=== PATIENT | male | born 1930 | race Caucasian/White ===

== ENCOUNTER 2017-01-05 15:23 | Inpatient (IN) | payer MEDICARE, OTHER ==
[~2017-01-05] VITALS: Ht 182.9 cm; Wt 96.3 kg
[2017-01-05] MEDS ORDERED: LOSA100T36 PO (16:48)
[2017-01-05] MEDS ORDERED: GLIP10TA6 PO (16:48)
[2017-01-05] MEDS ORDERED: AMLO5TAB2 PO (16:48)
[2017-01-05] MEDS ORDERED: JANU100T PO (16:48)
[2017-01-05] MEDS ORDERED: NEXI40CA PO (16:48)
[2017-01-05] MEDS ORDERED: SITA50TAB (16:48)
[2017-01-05] MEDS ORDERED: FURO40TA2 PO (16:48)
[2017-01-05] MEDS ORDERED: SPIR12.9 (16:48)
[2017-01-05] MEDS ORDERED: PRAV20TA2 PO (16:48)
[2017-01-05 18:43] LABS: BASO % 0.2 % (0.0-1.0); EOS # 0.1 K/mm3 (0.0-0.50); EOS % 0.5 % (0.0-3.0); LARGE UNSTAINED CELL % 0.2 % (0.0-4.0); LYMPH # 0.3 K/mm3 (1.5-4.5); LYMPH % 2.1 % (24.0-44.0); MEAN CORPUSCULAR HEMOGLOBIN 29.1 pg (27.0-33.0); MEAN CORPUSCULAR HGB CONC 33.9 g/dl (32.0-36.5); MEAN CORPUSCULAR VOLUME 85.6 fl (80.0-96.0); MONO # 0.5 K/mm3 (0.0-0.8); MONO % 3.6 % (0.0-5.0); NEUTROPHILS # 13.5 K/mm3 (1.8-7.7); NEUTROPHILS % 93.4 % (36.0-66.0); PLATELET COUNT, AUTOMATED 219 k/mm3 (150-450); WHITE BLOOD COUNT 14.5 K/mm3 (4.0-10.0)
[2017-01-05 18:48] LABS: ALBUMIN 3.8 GM/DL (3.2-5.2); ALBUMIN/GLOBULIN RATIO 1.23 (1.00-1.93); BILIRUBIN,DIRECT 0.1 MG/DL (0.0-0.2); BILIRUBIN,TOTAL 0.6 MG/DL (0.2-1.0); CALCIUM LEVEL 8.2 MG/DL (8.8-10.2); CREATININE FOR GFR 2.2 MG/DL (0.70-1.30); FREE T4 1.02 NG/DL (0.76-1.46); GLOMERULAR FILTRATION RATE 30.4 (>35); POTASSIUM SERUM 3.7 MEQ/L (3.5-5.1); TOTAL PROTEIN 6.9 GM/DL (6.4-8.2)
--- NOTE | 2017-01-05 19:30 | REPUSA ---
CLINICAL HISTORY: AMS. TECHNIQUE: Multiple axial CT images were obtained through the brain without IV contrast material. COMMENTS: There is normal configuration of sella turcica. There are no intra or extra-axial collections. There is no mass effect or midline shift. There is no evidence of hematoma formation. No hydrocephalus is p resent. The ventricles are symmetrical. No abnormal calcifications are present. There is diffuse age-appropriate cerebellar and cerebral atrophy with proportionally dilated ventricl es and cortical sulci. There are bilateral periventricular and subcortical white matter hypolucencies compatible with mild c hronic microvascular disease. Otherwise, no significant focal abnormalities are seen either in the posterior fossa or supratentoria l compartment. IMPRESSION: 1. Age-appropriate cerebellar and cerebral atrophy. 2. Mild chronic microvascular disease. 3. No evidence of acute intracranial pathology. Thank you for your kind referral of this patient.
--- NOTE | 2017-01-05 19:39 | REP ---
CHEST PA AND LATERAL 01/05/2017. Comparison: 07/25/2013, 02/01/2015. Clinical history: Altered mental status. Lungs adequately inflated. 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 Pulmonary arteries are mildly prominent. There is respiratory motion blur on the lateral view. Peribronchial thickening noted suggesting bronchitis or reactive airway disease. No dense consolidation evident. I see no lateral pleural thickening, effusion, apical scar or pneumothorax. Calcified tortuous aorta at the arch without aneurysm. Airway midline. Bony thorax without compression deformity. Impression: 1. Hyperinflation and pulmonary artery hypertension with COPD and some peribronchial thickening suggesting bronchitis or reactive airway disease. No dense consolidation. No mass. 2. No gross cardiomegaly, pulmonary edema or pleural effusion. 3. Calcified aortic arch with some tortuosity but no aneurysm. Stable. Signed by Joe Kruger MD 01/05/2017 07:54 P
[2017-01-05 20:51] LABS: MAGNESIUM LEVEL 1.6 MG/DL (1.8-2.4)
[2017-01-05] MEDS: HumaLOG INSULIN (NovoLOG) PER UNIT SC SCH (21:00)
[2017-01-05] MEDS ORDERED: LevoFLOXacin IV 500 MG in APPROPRIATE DILUENT 1 EA IV SCH (21:00)
[2017-01-05] MEDS ORDERED: ASPI81TAEC PO (21:02)
[2017-01-05] MEDS ORDERED: ALBU17IN INH (21:02)
[2017-01-05] MEDS ORDERED: ALEV220T26 PO (21:02)
[2017-01-05] MEDS ORDERED: VITA100066 PO (21:02)
[2017-01-05] MEDS ORDERED: VITMTA PO (21:02)
[2017-01-05] MEDS ORDERED: TIOT18INH INH (21:02)
[2017-01-05] MEDS ORDERED: GLUCAGON FOR INJ 1 MG VIAL (J1610) SC PRN (21:30)
[2017-01-05] MEDS ORDERED: BISACODYL 5 MG TAB PO PRN (21:30)
[2017-01-05] MEDS ORDERED: ONDANSETRON 4MG/2ML VIAL (J2405) IV PRN (21:30)
[2017-01-05] MEDS ORDERED: ALBUTEROL 90 MCG/ACT 8GM HFA INHALER INH PRN (21:30)
[2017-01-05] MEDS ORDERED: ACETAMINOPHEN TAB 650MG DOSE (2X325MG) PO PRN (21:30)
[2017-01-05] MEDS ORDERED: POTASSIUM CHLORIDE 10 MEQ SR TABLET PO ONE (21:30)
[2017-01-05] MEDS ORDERED: GLUCOSE 4 GM CHEW TABLET PO PRN (21:30)
[2017-01-05] MEDS ORDERED: DEXTROSE 50% 50 ML SYRINGE IV PRN (21:30)
--- NOTE | 2017-01-05 22:50 | HPE ---
DATE OF ADMISSION: 01/05/2017 CHIEF COMPLAINT: Rigors. HISTORY OF THE PRESENT ILLNESS: The patient is an 86-year-old man who was in his usual state of health, who at 10:30 this morning began having shivers and feeling cold. He reports having some mild shortness of breath associated with it. He is unsure if he has had a cough. He denies sick contacts. He tells me that the he thought that maybe his blood sugar was low. He checked a fingerstick; it was 85. He did have some juice and it came up to 150, but his rigors continued. He presented to urgent care where they referred him to the emergency room. At the present time, the patient tells me that after having had some Tylenol at urgent care, his rigors have stopped. At this time, he feels like he is almost back to normal. He denies chest pain, shortness of breath, fevers, chills, nausea, vomiting or diarrhea. Please note that the patient tells me that he has had increased frequency, says that he is going to the bathroom approximately every hour. He has been struggling with this for many weeks but has not seen anybody about it. He also tells me that he does wake up often at night to make urine as well, but he denies any dysuria. PAST MEDICAL HISTORY: Type 2 diabetes. Vitamin B12 deficiency. Hypertension. Chronic obstructive pulmonary disease (COPD), not on any home oxygen (O2) or steroid dependent. Gastroesophageal reflux disease. Dyslipidemia. Peripheral vascular disease. Obstructive sleep apnea. PAST SURGICAL HISTORY: Open reduction internal fixation of the right ankle. Prostatectomy. Lung nodule. Discectomy. SOCIAL HISTORY: The patient lives with his . He is a former smoker. He has three alcoholic drinks a day. FAMILY HISTORY: Noncontributory. REVIEW OF SYSTEMS: Negative other than in the history of the present illness. ALLERGIES: No known drug allergies. HOME MEDICATIONS: - Lasix 40 mg daily - glipizide 10 mg daily - losartan 100 mg daily - Januvia 100 mg daily - naproxen 220 mg twice a day as needed for pain - Ventolin HFA inhaled one puff every 4 hours as needed for shortness of breath - amlodipine 5 mg daily - aspirin 81 mg daily - vitamin D 1000 units daily - Nexium 40 mg daily - multivitamin one tablet daily - pravastatin 20 mg daily - Spiriva inhaled daily PHYSICAL EXAMINATION: Maximum temperature (T max) 102.2 on arrival, pulse 98, respiratory rate 20, blood pressure 122/61, oxygen saturation 96% on room air. GENERAL: He is a pleasant man, appears younger than his stated age. He is laying flat on the stretcher. He does not appear to be in any acute distress. HEENT: Cranial nerves II-XII are grossly intact. He has mild elevation of central venous pressure. CARDIOVASCULAR EXAM: S1, S2. He is not tachycardic on my exam. RESPIRATORY EXAM: Actually quite clear. ABDOMINAL EXAM: Obese. EXTREMITIES: He has 2+ edema bilaterally. LABORATORY STUDIES: WBC 14.5, hemoglobin 11.7, hematocrit 34.4, platelet count 219. Chemistry panel: Sodium 138, potassium 3.7, chloride 102, bicarbonate 24, BUN 33, creatinine 2.2 up from baseline of approximately 1.7. TSH within normal limits. UA is unremarkable. Microbiology: Urine culture is pending. IMAGING: The patient did have a CT scan of his head, which reveals age-appropriate cerebellar and cerebral atrophy. Mild chronic microvascular disease. No evidence of acute intracranial pathology. The patient also had a chest x-ray that reveals hyperinflation and pulmonary artery hypertension with COPD. Some peribronchial thickening suggestive of bronchitis or reactive airway disease. No dense consolidation. ASSESSMENT AND PLAN: This is an 86-year-old man presenting with fever, leukocytosis and fluid overload with acute kidney injury. Problems: 1. Fever and leukocytosis. Given the abrupt onset of his symptoms, I am suspicious for a viral infection. Will check a respiratory PCR panel. However, given that he does have bronchitis, I will start him on levofloxacin as well. Will also check blood cultures. He is currently not requiring any oxygen. Appears to be feeling much improved. Would also provide him with Tylenol. 2. Fluid overload and acute kidney injury. Given his increased frequency and urgency, I am concerned for urinary retention. Will check a renal ultrasound, also place a Andersen catheter. I will also adjust his home Lasix. He normally takes 40 mg daily; I will put him on 40 mg IV every 8 hours. Monitor his intake, output and daily weight to see if diuresis improves his renal function. Levofloxacin will be dose adjusted for renal dysfunction. We will check a BNP, check magnesium and replete potassium and magnesium as necessary. Will check an echocardiogram, although it appears as though his fluid retention is more related to renal disease than cardiac disease. 3. Chronic obstructive pulmonary disease (COPD). Continue with his home inhalers. He is at his baseline respiratory status. 4. Gastroesophageal reflux disease. The patient is on Protonix. 5. Type 2 diabetes. The patient will be sliding scale insulin and hypoglycemic protocol. 6. Hypertension. We will continue with his home Norvasc with holding parameters. 7. Dyslipidemia. Will continue with pravastatin. 8. Vitamin D deficiency and B12 deficiency. He is on supplementation. 9. Obstructive sleep apnea. The patient does not use continuous positive airway pressure (CPAP), although has been recommended to previously on an older sleep study by Dr. Wright. DISPOSITION: The patient will be admitted to the medical-surgical floor to the care of Dr. Ruby who will continue following the patient at 7:00 a.m. [facility]
--- NOTE | 2017-01-05 23:50 | REPUSA ---
CLINICAL HISTORY: LUISITO. TECHNIQUE: Realtime sonographic images were obtained in multiple projections. COMMENTS: The right kidney measures 11.8 cm in length, 8.2 cm in width x 5.9 cm in height and the left kidney m easures 12.8 cm in length x 6.1 cm in width x 7.0 cm in height. Both kidneys are free of hydronephro sis. There is no perinephric fluid. There is no renal calculus. Multicystic right kidney, the largest measuring in the upper pole is 3.4 x 2.5 x 3.3 cm. Multicystic left kidney, the largest measuring in the lower pole is 6.4 x 5.8 x 5.0 cm. Cortical thi ckening noted. IMPRESSION: 1. Multicystic right kidney, the largest cyst in the upper pole is 3.4 x 2.5 x 3.3 cm. 2. Multicystic left kidney, the largest in the lower pole is 6.4 x 5.8 x 5.0 cm. Cortical thickenin g noted. Thank you for your kind referral of this patient. We appreciate the opportunity to participate in thi s patient's care.
[2017-01-06] VITALS: BP 131/60
[2017-01-06] MEDS: MAG SULF 1GM/100ML (MAG RUN) 1 GM in APPROPRIATE DILUENT 1 EA IV SCH ×2 (00:19→01:30)
[2017-01-06] MEDS: FUROSEMIDE 40 MG/4 ML VIAL (J1940) IV SCH ×2 (00:19→08:10)
[2017-01-06 06:00] VITALS: BP 110/55
[2017-01-06] MEDS: TIOTROPIUM INHALER/CAPSULE (SPIRIVA) INH SCH (06:26)
[2017-01-06 06:58] LABS: MEAN CORPUSCULAR HEMOGLOBIN 29.1 pg (27.0-33.0); MEAN CORPUSCULAR HGB CONC 33.9 g/dl (32.0-36.5); RED CELL DISTRIBUTION WIDTH 13.3 % (11.5-14.5); WHITE BLOOD COUNT 15.8 K/mm3 (4.0-10.0)
[2017-01-06 07:16] LABS: CALCIUM LEVEL 7.9 MG/DL (8.8-10.2); CREATININE FOR GFR 2.76 MG/DL (0.70-1.30); GLOMERULAR FILTRATION RATE 23.4 (>35); POTASSIUM SERUM 4.4 MEQ/L (3.5-5.1)
[2017-01-06] MEDS: PRAVASTATIN 20 MG TAB PO SCH (08:10)
[2017-01-06] MEDS: HEPARIN SOD (PORCINE) 5000 UNITS/ML VIAL SC SCH ×2 (08:10→20:52)
[2017-01-06] MEDS: HumaLOG INSULIN (NovoLOG) PER UNIT SC SCH ×4 (08:10→20:48)
[2017-01-06] MEDS: ASPIRIN 81 MG ENTERIC TAB PO SCH (08:11)
[2017-01-06] MEDS: MULTIVITAMINS/MINERALS THERAP 1 TAB PO SCH (08:11)
[2017-01-06] MEDS: PANTOPRAZOLE 40MG TAB (PROTONIX) PO SCH (08:11)
[2017-01-06] MEDS: THIAMINE 100 MG TAB PO SCH (08:11)
[2017-01-06] MEDS: FOLIC ACID 1 MG TAB PO SCH (08:11)
[2017-01-06] MEDS: amLODIPine 5 MG TAB PO SCH (08:11)
[2017-01-06] MEDS: VITAMIN D 1,000 INTERNATIONAL UNITS TABLET PO SCH (08:11)
[2017-01-06] MEDS: PERCOCET 5MG/325MG TAB PO PRN (08:17)
--- NOTE | 2017-01-06 09:06 | IPNPDOC ---
Subjective Date Seen The patient was seen on 01/06/17. Subjective Chief Complaint/HPI He wants to eat. He is eager to go home. He doesn't really c/o much this morning. General: Denies: Fatigue Constitutional: Reports: Fever, Denies: Chills ENT: Denies: Head Aches Pulmonary: Denies: Cough, Dyspnea Cardiovascular: Denies: Chest Pain, Palpitations Gastrointestinal: Denies: Diarrhea, Nausea, Vomiting Psych: Reports: Mood Normal Objective Physical Examination General Exam: Positive: Alert, Cooperative, No Acute Distress ENT Exam: Positive: Mucous membr. moist/pink Chest Exam: Positive: Clear to auscultation, Normal air movement Heart Exam: Positive: Normal S1, Normal S2, Rate Normal Abdomen Exam: Positive: Normal bowel sounds, Soft, Negative: Tenderness Extremity Exam: Positive: Edema (2 mm pedal edema) Neuro Exam: Positive: Normal Speech Psych Exam: Positive: Mood NL Assessment /Plan Problems (1) Febrile illness, acute Status: Acute Response to Treatment: Stable Problem Specific Plan: Monitor Clinically, Repeat Labs Problem Text: WBC elevated 14.5 yesterday, 15.8 today, Temp controlled with Tyl. Check influenza, Resp viral screen ordered, results pending, CXR without acute disease. Cont with Levaquin D2, renally dosed. (2) LUISITO (acute kidney injury) Status: Acute Problem Specific Plan: Monitor Clinically, Repeat Labs Problem Text: Scr 2.2 on admission, 2.76 this morning, received IV Lasix overnight, will DC and monitor. Hold off on IVF for now. 08/14 Scr was 1.78 (3) Polycystic kidney Status: Chronic Problem Specific Plan: Monitor Clinically Problem Text: otherwise nl renal US. (4) COPD (chronic obstructive pulmonary disease) Status: Acute (5) DM2 (diabetes mellitus, type 2) Status: Chronic Response to Treatment: Stable Problem Specific Plan: Monitor Clinically Problem Text: FSBS with SSI ordered. (6) HTN (hypertension) Status: Chronic Response to Treatment: Stable Problem Specific Plan: Monitor Clinically (7) Edema Status: Chronic Response to Treatment: Stable, Improving Problem Specific Plan: Monitor Clinically Problem Text: Received IV Lasix overnight, will d/c today, does have chronic baseline edema, secondary to venous insuff. ECHO pending. Plan/VTE VTE Prophylaxis Ordered?: Yes Plan/Urinary Catheter Reason for insertion/continuin: Other-document below Plan Family Medicine Attending Note: I saw and examined Mr. Diana this afternoon; I d/w TAPAN Anderson and I agree with her note. Lasjim d/c'ed today due to elevated Cr; patient does not appear volume overloaded on my exam today. Temp up to 100.2 upon last check - source is unknown. Skin exam today revealed no sign of infection, CXR negative for infiltrate and patient has no respiratory symptoms, and urine culture was negative. Resp panel and Influenza pending. Continue empiric levaquin for now. Nathaly d/c'ed today. (KES) VS, I&O, 24H, Fishbone Vital Signs/I&O Vital Signs Date Time Temp Pulse Resp B/P Pulse Ox O2 Delivery O2 Flow Rate FiO2 01/06/17 08:47 16 01/06/17 06:00 100.2 89 110/55 97 Room Air I&O- Last 24 Hours up to 6 AM 01/06/17 06:00 Intake Total 440 ml Output Total 400 ml Balance 40 ml Laboratory Data 24H LABS Laboratory Tests 2 01/05/17 15:57: Aspartate Amino Transf (AST/SGOT) 13L, Alanine Aminotransferase (ALT/SGPT) 14, Alkaline Phosphatase 79, Total Bilirubin 0.6, Direct Bilirubin 0.1, Albumin 3.8 , Albumin/Globulin Ratio 1.23, Anion Gap 12, B-Type Natriuretic Peptide 197H, White Blood Count 14.5H, Red Blood Count 4.02L, Hemoglobin 11.7L, Hematocrit 34.4L, Mean Corpuscular Volume 85.6, Mean Corpuscular Hemoglobin 29.1, Mean Corpuscular Hemoglobin Concent 33.9, Red Cell Distribution Width 13.0, Platelet Count 219, Neutrophils (%) (Auto) 93.4H, Lymphocytes (%) (Auto) 2.1L, Monocytes (%) (Auto) 3.6, Eosinophils (%) (Auto) 0.5, Basophils (%) (Auto) 0.2, Neutrophils # (Auto) 13.5H, Lymphocytes # (Auto) 0.3L, Monocytes # (Auto) 0.5, Eosinophils # (Auto) 0.1, Basophils # (Auto) 0.0, Calcium Level 8.2L, Creatine Kinase MB 1.0, Creatine Kinase MB Relative Index 1.44, Free Thyroxine 1.02, Glomerular Filtration Rate 30.4L, Large Unclassified Cells # 0.0, Large Unclassified Cells % 0.2, Magnesium Level 1.6L, Thyroid Stimulating Hormone (TSH ) 1.450, Total Creatine Kinase 69, Total Protein 6.9, Troponin I 0.02 01/05/17 18:55: Urine Amorphous Sediment , Urine Appearance CLEAR, Urine Color YELLOW, Urine pH 5.0, Urine Specific [place] 1.011, Urine Protein NEGATIVE, Urine Glucose (UA) NEGATIVE, Urine Ketones NEGATIVE, Urine Urobilinogen 0.2, Urine Bilirubin NEGATIVE, Urine Leukocyte Esterase NEGATIVE, Urine Bacteria (Auto) NEGATIVE, Urine Blood NEGATIVE, Urine Calcium Carbonate Cryst(Auto) , Urine Calcium Oxalate Cryst (Auto) , Urine Calcium Phosphate Shara (Auto) , Urine Cellular Casts , Urine Cystine Crystals , Urine Granular Casts (Auto) , Urine Hyaline Casts (Auto) 2, Urine Leucine Crystals , Urine Mucus (Auto) SMALL, Urine Nitrite NEGATIVE, Urine Oval Fat Bodies (Auto) , Urine RBC (Auto) 1, Urine Renal Epithelial Cells , Urine Sperm (Auto) , Urine Squamous Epithelial Cells 1 , Urine Transitional Epithelial Cells , Urine Trichomonas (Auto) , Urine Triple Phosphate Cryst (Auto) , Urine Tyrosine Crystals , Urine Uric Acid Crystals ( Auto) , Urine WBC (Auto) 0, Urine Waxy Casts (Auto) , Urine Yeast-Like Cells ( Auto) 01/05/17 20:28: Bedside Glucose (Misc Panel) 157H 01/06/17 06:40: Anion Gap 10, B-Type Natriuretic Peptide 315H, Calcium Level 7.9L, Glomerular Filtration Rate 23.4L, Blood Urea Nitrogen 44H, Creatinine 2.76H, Sodium Level 136, Potassium Level 4.4, Chloride Level 102, Carbon Dioxide Level 24 CBC/BMP Laboratory Tests 01/05/17 15:57 Red Blood Count 4.02 L, Mean Corpuscular Volume 85.6, Mean Corpuscular Hemoglobin 29.1, Mean Corpuscular Hemoglobin Concent 33.9, Red Cell Distribution Width 13.0, Neutrophils (%) (Auto) 93.4 H, Lymphocytes (%) (Auto) 2.1 L, Monocytes (%) (Auto) 3.6, Eosinophils (%) (Auto) 0.5, Basophils (%) (Auto ) 0.2, Neutrophils # (Auto) 13.5 H, Lymphocytes # (Auto) 0.3 L, Monocytes # ( Auto) 0.5, Eosinophils # (Auto) 0.1, Basophils # (Auto) 0.0 01/06/17 06:40 Red Blood Count 3.62 L, Mean Corpuscular Volume 86.0, Mean Corpuscular Hemoglobin 29.1, Mean Corpuscular Hemoglobin Concent 33.9, Red Cell Distribution Width 13.3, Calcium Level 7.9 L Microbiology Microbiology 01/06/17 Blood Culture, Received Pending 01/06/17 Blood Culture, Received Pending 01/05/17 Urine Culture, Received Pending HONORIO TARIQ PA-C Jan 06, 2017 09:06 BETTE JOSÉ MD Jan 06, 2017 15:15
[2017-01-06 14:00] VITALS: BP 114/58
[2017-01-06 22:00] VITALS: BP 123/57
[2017-01-07 06:00] VITALS: BP 130/61
[2017-01-07 06:10] LABS: MEAN CORPUSCULAR HEMOGLOBIN 29.5 pg (27.0-33.0); MEAN CORPUSCULAR HGB CONC 34.4 g/dl (32.0-36.5); MEAN CORPUSCULAR VOLUME 85.8 fl (80.0-96.0); RED CELL DISTRIBUTION WIDTH 13.2 % (11.5-14.5); WHITE BLOOD COUNT 10.8 K/mm3 (4.0-10.0)
[2017-01-07 06:25] LABS: CREATININE FOR GFR 2.61 MG/DL (0.70-1.30); POTASSIUM SERUM 3.9 MEQ/L (3.5-5.1)
[2017-01-07] MEDS: TIOTROPIUM INHALER/CAPSULE (SPIRIVA) INH SCH (07:20)
--- NOTE | 2017-01-07 08:46 | ECGEPIP ---
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
[2017-01-07] MEDS: HEPARIN SOD (PORCINE) 5000 UNITS/ML VIAL SC SCH (08:59)
[2017-01-07 09:00] VITALS: BP 130/61
[2017-01-07] MEDS: ASPIRIN 81 MG ENTERIC TAB PO SCH (09:00)
[2017-01-07] MEDS: THIAMINE 100 MG TAB PO SCH (09:00)
[2017-01-07] MEDS: PRAVASTATIN 20 MG TAB PO SCH (09:00)
[2017-01-07] MEDS: VITAMIN D 1,000 INTERNATIONAL UNITS TABLET PO SCH (09:00)
[2017-01-07] MEDS: HumaLOG INSULIN (NovoLOG) PER UNIT SC SCH (09:00)
[2017-01-07] MEDS: amLODIPine 5 MG TAB PO SCH (09:00)
[2017-01-07] MEDS: PANTOPRAZOLE 40MG TAB (PROTONIX) PO SCH (09:00)
[2017-01-07] MEDS: PERCOCET 5MG/325MG TAB PO PRN (09:00)
[2017-01-07] MEDS: FOLIC ACID 1 MG TAB PO SCH (09:00)
[2017-01-07] MEDS: MULTIVITAMINS/MINERALS THERAP 1 TAB PO SCH (09:01)
[2017-01-07] MEDS ORDERED: SITA50TAB PO (12:21)
[2017-01-07] MEDS ORDERED: LEVO500T32 PO (12:21)
--- NOTE | 2017-01-08 07:56 | ECHO ---
DATE OF PROCEDURE: 01/06/2017 REFERRING PHYSICIAN: Dr. Leah Yost INDICATION: Heart failure, unspecified. HEIGHT: 183 cm. WEIGHT: 93 kg. MEASUREMENTS: Ventricular septum - 1.22 cm. Posterior wall - 1.17 cm Left ventricle diastole - 4.3 cm Left atrium 4.2 cm LVOT - 2.0 cm Aortic root - 3.2 cm Inferior vena cava - 1.9 cm DOPPLER MEASUREMENTS: Very mild aortic regurgitation. Aortic valve velocity - 164 cm/s LVOT velocity - 157 cm/s LVOT VTI - 29.5 cm Mitral E velocity 89.8 cm/s Mitral A velocity - 74.0 cm/s Mitral deceleration time 204 ms. Very mild tricuspid regurgitation. Pulmonary artery systolic pressure 27 mmHg by pulmonary acceleration time method. MITRAL ANNULAR TISSUE DOPPLER: E prime septal - 5.7 cm/s E prime lateral - 6.3 cm/s DESCRIPTION: The rhythm was sinus. Image quality was fair. This is a 2D, M-mode, color flow Doppler and pulsed wave Doppler examination including mitral annular tissue Doppler. CONCLUSIONS: 1. Borderline concentric left ventricle hypertrophy. No regional wall motion abnormalities. Hyperdynamic left ventricle systolic function. LVEF to 80% by visual estimate. Probable pseudonormal LV diastolic filling pattern (grade 2 diastolic dysfunction). 2. Mild left atrial dilatation. 3. Mild aortic valve sclerosis. Very mild aortic regurgitation. 4. Otherwise normal echocardiogram Doppler findings. cc: MD Shanta Norton MD
--- NOTE | 2017-01-09 10:04 | DSES ---
DATE OF ADMISSION: 01/05/2017 DATE OF DISCHARGE: 01/07/2017 REASON FOR ADMISSION: The patient was admitted on 01/05/2017, with chills, felt somewhat short of breath accompanying the chills. He does have a history of COPD and uses Spiriva but he denies any significant change in cough or dyspnea related exertion except noted the respiratory symptoms that occurred with the fever. He did not have a productive cough. He did have a temperature on admission of 102.2, appropriate source search was engaged to try to identify the source of this fever, including blood cultures, respiratory viral studies and these were all entirely negative. Blood cultures were negative times two. Urine culture was negative. He defervesced promptly after being placed on levofloxacin 500 mg every 48 hours. Previous to admission pain he had informed the admitting physician that he had been experiencing urinary frequency for several weeks before admission. At this point, however the patient denies this history, not clear whether this is a memory lapse or overt denial. At this time he is voiding without difficulty by his history. He is status post prostatectomy for prostate cancer and at this time he was up urinating to the bathroom without difficulty and walking without any difficulties. Current condition is satisfactory for discharge with vital signs that appear to be stable with blood pressure 130/61, temperature of 97.4, pulse 80, respiratory rate 18, oxygen saturation 96% on room air. Ultrasound of his kidneys was done because of appropriate concern regarding possible obstructive uropathy and he did not have evidence of hydroureter or hydronephrosis. He did have evidence however of bilateral polycystic kidney disease. His creatinine had been approximately 1.7 when checked in May and on admission his creatinine was 2.20. After initiation of moderately intense diuresis with IV Lasix every 8 hours because of cardiomegaly and sense of dyspnea and slightly elevated BNP, his creatinine chadwick to 2.76. The following day, the day of discharge, he is back down to 2.61 and his BNP is now back almost to normal at 135, peak BNP was 315 recorded yesterday. DISCHARGE DIAGNOSES: 1. Transient fever, no specific source identified but with a combination of urinary frequency and apparent resolution of same after starting antibiotics appropriate for treatment of urinary source infection and prostatitis it is possible he has prostatitis in the remnant but this seems to be relatively low probability as an explanation considering he is postsurgical. Nonetheless, frequency and fever have resolved. Discharge diagnosis fever, source identified, symptoms resolved. 2. COPD. 3. History of prostate cancer. 4. Acute renal insufficiency, improving at the time of discharge. 5. Elevated BNP consistent with congestive heart failure. Echocardiogram has not been done that we can find in previous outpatient record and will plan to get this done as outpatient in the near future. Activity will be as tolerated. DISCHARGE MEDICATIONS: Will be: - albuterol MDI every 4 hours as needed - tiotropium MDI one inhalation daily - amlodipine 5 mg daily - aspirin 81 mg daily - vitamin D 1000 units daily - esomeprazole 40 mg daily - furosemide 40 mg daily - glipizide 10 mg daily - pravastatin 20 mg daily - Januvia 50 mg daily - levofloxacin 500 mg every 48 hours for five doses, 10 day duration Discontinued medications at this hospitalization include losartan 100 mg, naproxen sodium, which he was using as needed, and sitagliptin (Januvia) 100 mg daily, this Januvia dose was decreased because of his creatinine clearance estimated to be less than 50. Followup in 1 week with Eva Irvin. Recommendation to consider nephrology consultation and recommendation for outpatient echocardiogram and recheck basic metabolic profile, phosphorus and PTH as well as CBC at followup.
== END 2017-01-07 13:25 | disposition home or self-care (01) | DRG 866 ==
LOC: EDBD 15:23 → M ED 16:03 → M ED INP 21:30 → M MS5PR 23:38
PROVIDERS: ADMIT Internal Medicine; ATTEND Family Medicine
DX: B34.9 Viral infection, unspecified (principal); N17.9 Acute kidney failure, unspecified; Q61.2 Polycystic kidney, adult type; J44.9 Chronic obstructive pulmonary disease, unspecified; E11.9 Type 2 diabetes mellitus without complications; G47.33 Obstructive sleep apnea (adult) (pediatric); E53.8 Deficiency of other specified B group vitamins; E55.9 Vitamin D deficiency, unspecified; R60.9 Edema, unspecified; R79.89 Other specified abnormal findings of blood chemistry; E78.5 Hyperlipidemia, unspecified; I73.9 Peripheral vascular disease, unspecified; K21.9 Gastro-esophageal reflux disease without esophagitis; I10 Essential (primary) hypertension; Z79.82 Long term (current) use of aspirin; Z79.84 Long term (current) use of oral hypoglycemic drugs; Z79.899 Other long term (current) drug therapy; Z85.46 Personal history of malignant neoplasm of prostate; Z90.79 Acquired absence of other genital organ(s); Z87.891 Personal history of nicotine dependence

== ENCOUNTER → 2017-01-10 | Outpatient (REF) | payer MEDICARE, OTHER ==
[~2017-01-10] MED LIST: ALBU17IN INH; ALEV220T26 PO; AMLO5TAB2 PO; ASPI81TAEC PO; FURO40TA2 PO; GLIP10TA6 PO; JANU100T PO; LEVO500T32 PO; LOSA100T36 PO; NEXI40CA PO; PRAV20TA2 PO; SITA50TAB; SITA50TAB PO; SPIR12.9; TIOT18INH INH; VITA100066 PO; VITMTA PO
== END ==
LOC: M SFHCADAM 11:17
PROVIDERS: ATTEND Physician Assistant Medical
DX: E11.9 Type 2 diabetes mellitus without complications (principal); N17.9 Acute kidney failure, unspecified

== ENCOUNTER → 2017-01-10 | Outpatient (CLI) | payer MEDICARE, OTHER ==
--- NOTE | 2017-01-10 13:06 | REP ---
Duplex extremity venous ultrasound: Left lower extremity. History: Left lower extremity swelling. Findings: The deep veins are anechoic and fully compressible from the groin to the popliteal fossa in the left lower extremity. Color flow imaging is homogeneous. Spectral Doppler interrogation demonstrates intact respiratory variation in flow and normal manual augmentation of flow. There is no evidence of deep vein thrombosis. Impression: Negative left lower extremity duplex venous ultrasound. No evidence of deep vein thrombosis. Signed by Presley Cervantes MD 01/10/2017 12:57 P
[2017-01-10 13:31] LABS: BASO # 0.1 K/mm3 (0.0-0.2); BASO % 0.7 % (0.0-1.0); EOS # 0.3 K/mm3 (0.0-0.50); EOS % 2.5 % (0.0-3.0); LARGE UNSTAINED CELL # 0.3 K/mm3 (0.0-0.4); LARGE UNSTAINED CELL % 2.7 % (0.0-4.0); LYMPH # 1.8 K/mm3 (1.5-4.5); LYMPH % 16.8 % (24.0-44.0); MEAN CORPUSCULAR HEMOGLOBIN 28.5 pg (27.0-33.0); MEAN CORPUSCULAR HGB CONC 32.7 g/dl (32.0-36.5); MEAN CORPUSCULAR VOLUME 87.1 fl (80.0-96.0); MONO # 0.7 K/mm3 (0.0-0.8); NEUTROPHILS # 7.7 K/mm3 (1.8-7.7); NEUTROPHILS % 71.3 % (36.0-66.0); PLATELET COUNT, AUTOMATED 277 k/mm3 (150-450); RED CELL DISTRIBUTION WIDTH 12.9 % (11.5-14.5); WHITE BLOOD COUNT 10.8 K/mm3 (4.0-10.0)
[2017-01-10 14:21] LABS: ALBUMIN 3.7 GM/DL (3.2-5.2); CREATININE FOR GFR 2.28 MG/DL (0.70-1.30); GLOMERULAR FILTRATION RATE 29.2 (>35); PHOSPHORUS LEVEL 3.7 MG/DL (2.5-4.9); POTASSIUM SERUM 4.2 MEQ/L (3.5-5.1)
== END ==
LOC: M LAB 12:28 → M RAD 12:28
PROVIDERS: ATTEND Physician Assistant Medical
DX: K13.79 Other lesions of oral mucosa (principal); E11.9 Type 2 diabetes mellitus without complications; N17.9 Acute kidney failure, unspecified; R60.0 Localized edema
CPT/HCPCS: 36415; 80069; 85025; 87252; 93971; G0463

== ENCOUNTER → 2017-02-01 | Outpatient (REF) | payer MEDICARE, OTHER | LOC: M LAB REF 10:08 | PROVIDERS: ATTEND Physician Assistant | DX: R19.7 Diarrhea, unspecified (principal) ==

== ENCOUNTER → 2017-02-01 | Outpatient (CLI) | payer MEDICARE, OTHER ==
--- NOTE | 2017-02-01 19:04 | REP ---
Acute abdominal series three views including PA chest and two views of the abdomen, one marked upright and the other not marked upright or supine. The view upright is of the upper abdomen. The other view is of the inferior abdomen. PA chest: Comparisons are 01/05/2017 and 07/25/2013. The lung franklin are clear. Cardiac size is upper normal. The gerry, mediastinum, bony thorax unremarkable. There is no free subdiaphragmatic air. Impression: Negative PA chest. Abdomen; The bowel gas pattern is normal. There are surgical clips inferiorly in the pelvis. There is degenerative disc disease in the lumbar spine. There is scoliosis convex right at the thoracolumbar junction. 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 Impression: Normal bowel gas pattern. Signed by Jeison Jackson MD 02/01/2017 06:56 P
[2017-02-01 19:50] LABS: DIFF SLIDE NUMBER 321; MEAN CORPUSCULAR HEMOGLOBIN 29.1 pg (27.0-33.0); MEAN CORPUSCULAR HGB CONC 33.6 g/dl (32.0-36.5); MEAN CORPUSCULAR VOLUME 86.8 fl (80.0-96.0); PLATELET COUNT, AUTOMATED 255 k/mm3 (150-450); WHITE BLOOD COUNT 7.8 K/mm3 (4.0-10.0)
[2017-02-01 19:56] LABS: ALBUMIN 3.6 GM/DL (3.2-5.2); ALBUMIN/GLOBULIN RATIO 1.06 (1.00-1.93); BILIRUBIN,TOTAL 0.4 MG/DL (0.2-1.0); CALCIUM LEVEL 8.5 MG/DL (8.8-10.2); CREATININE FOR GFR 2.12 MG/DL (0.70-1.30); GLOMERULAR FILTRATION RATE 31.8 (>35); POTASSIUM SERUM 4.2 MEQ/L (3.5-5.1)
[2017-02-01 21:58] LABS: BANDS 1 % (< 11); EOSINOPHILS 5 % (0-5)
[2017-02-01 21:59] LABS: OVALOCYTES 1+; POIKILOCYTOSIS 1+; SCHISTOCYTES 1+
== END ==
LOC: M ADAMS 17:16
PROVIDERS: ATTEND Physician Assistant
DX: R19.7 Diarrhea, unspecified (principal)

== ENCOUNTER → 2017-03-14 | Outpatient (REF) | payer MEDICARE, OTHER ==
[2017-03-14 12:48] LABS: BASO % 0.9 % (0.0-1.0); EOS % 1.9 % (0.0-3.0); LARGE UNSTAINED CELL % 2.1 % (0.0-4.0); LYMPH % 24.1 % (24.0-44.0); MEAN CORPUSCULAR HEMOGLOBIN 29.6 pg (27.0-33.0); MEAN CORPUSCULAR HGB CONC 33.6 g/dl (32.0-36.5); MEAN CORPUSCULAR VOLUME 88.3 fl (80.0-96.0); MONO % 7.5 % (0.0-5.0); NEUTROPHILS % 63.6 % (36.0-66.0); PLATELET COUNT, AUTOMATED 232 k/mm3 (150-450); RED CELL DISTRIBUTION WIDTH 13.7 % (11.5-14.5); WHITE BLOOD COUNT 7.8 K/mm3 (4.0-10.0)
[2017-03-14 12:49] LABS: BASO # 0.1 K/mm3 (0.0-0.2); DIFF SLIDE NUMBER 203; EOS # 0.2 K/mm3 (0.0-0.50); LARGE UNSTAINED CELL # 0.2 K/mm3 (0.0-0.4); LYMPH # 1.9 K/mm3 (1.5-4.5); MONO # 0.6 K/mm3 (0.0-0.8)
[2017-03-14 13:11] LABS: FOLATE 21.9 NG/ML
[2017-03-14 13:13] LABS: ALBUMIN 3.7 GM/DL (3.2-5.2); ALBUMIN/GLOBULIN RATIO 1.19 (1.00-1.93); BILIRUBIN,TOTAL 0.4 MG/DL (0.2-1.0); CALCIUM LEVEL 8.3 MG/DL (8.8-10.2); CREATININE FOR GFR 2.03 MG/DL (0.70-1.30); GLOMERULAR FILTRATION RATE 33.4 (>35); PERCENT SATURATION 20.5 % (19.7-37.4); POTASSIUM SERUM 4.4 MEQ/L (3.5-5.1); TOTAL PROTEIN 6.8 GM/DL (6.4-8.2)
== END ==
LOC: M SFHCADAM 09:33
PROVIDERS: ATTEND Physician Assistant Medical
DX: E11.9 Type 2 diabetes mellitus without complications (principal); N18.4 Chronic kidney disease, stage 4 (severe); D63.8 Anemia in other chronic diseases classified elsewhere
CPT/HCPCS: 80053; 82607; 82728; 82746; 83036; 83550; 85025; G0463

== ENCOUNTER → 2017-09-05 | Outpatient (REF) | payer MEDICARE, OTHER ==
[~2017-09-05] MED LIST changes: +LEVO500T3 PO; -LEVO500T32 PO
[2017-09-05 20:34] LABS: PERCENT SATURATION 21.6 % (19.7-50.0)
[2017-09-08 00:06] LABS: Lyme Disease IgG/IgM Antibodie <0.91 ISR (0.00-0.90); Lyme Disease IgM Ab Quantitati <0.80 index (0.00-0.79)
== END ==
LOC: M SFHCADAM 11:29
PROVIDERS: ATTEND Physician Assistant Medical
DX: Z00.00 Encounter for general adult medical examination without abnormal findings (principal); E11.9 Type 2 diabetes mellitus without complications; I12.9 Hypertensive chronic kidney disease with stage 1 through stage 4 chronic kidney disease, or unspecified chronic kidney disease; N18.4 Chronic kidney disease, stage 4 (severe); D63.1 Anemia in chronic kidney disease; M79.1 Myalgia; E53.8 Deficiency of other specified B group vitamins; K21.9 Gastro-esophageal reflux disease without esophagitis; I87.2 Venous insufficiency (chronic) (peripheral); I50.32 Chronic diastolic (congestive) heart failure; J43.1 Panlobular emphysema

== ENCOUNTER → 2018-01-29 | Outpatient (CLI) | payer MEDICARE, OTHER | LOC: M RAD 11:02 | DX: N63.20 Unspecified lump in the left breast, unspecified quadrant (principal); R92.8 Other abnormal and inconclusive findings on diagnostic imaging of breast | CPT/HCPCS: 76642 ==

== ENCOUNTER → 2018-03-13 | Outpatient (REF) | payer MEDICARE, OTHER ==
[2018-03-13 19:09] LABS: BASO # 0.1 10^3/uL (0.0-0.2); BASO % 1.1 % (0.0-1.0); EOS # 0.2 10^3/uL (0.0-0.50); EOS % 2.2 % (0.0-3.0); HEMATOCRIT 34.6 % (42.0-52.0); HEMOGLOBIN 11.6 g/dl (13.5-17.5); IMMATURE GRANULOCYTE % 0.7 % (0-3.0); LYMPH # 1.7 10^3/uL (1.5-4.5); LYMPH % 20.6 % (24.0-44.0); MEAN CORPUSCULAR HEMOGLOBIN 29.9 pg (27.0-33.0); MEAN CORPUSCULAR HGB CONC 33.5 g/dl (32.0-36.5); MEAN CORPUSCULAR VOLUME 89.2 fl (80.0-96.0); MONO # 0.9 10^3/uL (0.0-0.8); NEUTROPHILS # 5.5 10^3/uL (1.8-7.7); NEUTROPHILS % 65.4 % (36.0-66.0); PLATELET COUNT, AUTOMATED 237 10^3/uL (150-450); RED BLOOD COUNT 3.88 10^6/uL (4.30-6.10); RED CELL DISTRIBUTION WIDTH 13.2 % (11.5-14.5); WHITE BLOOD COUNT 8.5 10^3/uL (4.0-10.0)
[2018-03-13 19:34] LABS: FOLATE 18.4 NG/ML; TOTAL 25(OH) VITAMIN D 28.4 NG/ML (30.0-100.0); VITAMIN B12 LEVEL 745 PG/ML
[2018-03-13 20:07] LABS: ALBUMIN 3.9 GM/DL (3.2-5.2); ALBUMIN/GLOBULIN RATIO 1.15 (1.00-1.93); ALKALINE PHOSPHATASE 94 U/L (45-117); ALT/SGPT 16 U/L (12-78); ANION GAP 9 MEQ/L (8-16); AST/SGOT 10 U/L (7-37); BILIRUBIN,TOTAL 0.4 MG/DL (0.2-1.0); BLOOD UREA NITROGEN 35 MG/DL (7-18); CALCIUM LEVEL 8.9 MG/DL (8.8-10.2); CARBON DIOXIDE LEVEL 23 MEQ/L (21-32); CHLORIDE LEVEL 108 MEQ/L (98-107); CHOLESTEROL LEVEL 106 MG/DL (<200); FERRITIN 25 NG/ML (26-388); FREE T4 0.98 NG/DL (0.76-1.46); GLOMERULAR FILTRATION RATE 33.9 (>35); GLUCOSE, FASTING 237 MG/DL (70-100); HDL CHOLESTEROL 40 MG/DL (>40); IRON (FE) 40 UG/DL (65-175); NON-HDL-C 66 MG/DL; PERCENT SATURATION 13.2 % (19.7-50.0); POTASSIUM SERUM 3.9 MEQ/L (3.5-5.1); SODIUM LEVEL 140 MEQ/L (136-145); TOTAL IRON BINDING CAPACITY 304 UG/DL (250-450); TOTAL PROTEIN 7.3 GM/DL (6.4-8.2); TRIGLYCERIDES LEVEL 190 MG/DL (<150)
[2018-03-13 20:08] LABS: ESTIMATED AVERAGE GLUCOSE 192 MG/DL (60-110); HEMOGLOBIN A1c 8.3 %
[2018-03-13 20:18] LABS: CREATININE, URINE 38.5 MG/DL; MALB URINE SIEMENS 23.7 MG/L; MAU/CREAT RATIO 61.5 MCG/MG (0.0-30.0)
== END ==
LOC: M SFHCADAM 13:20
DX: E53.8 Deficiency of other specified B group vitamins (principal); I10 Essential (primary) hypertension; D63.8 Anemia in other chronic diseases classified elsewhere; E11.9 Type 2 diabetes mellitus without complications; Z79.899 Other long term (current) drug therapy
CPT/HCPCS: 82746

== ENCOUNTER 2018-03-25 17:34 | Emergency (ER) | payer MEDICARE, OTHER ==
[2018-03-25 18:23] LABS: BASO # 0.1 10^3/uL (0.0-0.2); BASO % 0.4 % (0.0-1.0); EOS # 0.1 10^3/uL (0.0-0.50); EOS % 0.7 % (0.0-3.0); HEMATOCRIT 37.5 % (42.0-52.0); HEMOGLOBIN 12.2 g/dl (13.5-17.5); IMMATURE GRANULOCYTE % 0.9 % (0-3.0); LYMPH # 1.1 10^3/uL (1.5-4.5); MEAN CORPUSCULAR HGB CONC 32.5 g/dl (32.0-36.5); MEAN CORPUSCULAR VOLUME 92.1 fl (80.0-96.0); MONO # 0.2 10^3/uL (0.0-0.8); MONO % 1.5 % (0.0-5.0); NEUTROPHILS # 10.3 10^3/uL (1.8-7.7); NEUTROPHILS % 87.5 % (36.0-66.0); PLATELET COUNT, AUTOMATED 224 10^3/uL (150-450); RED BLOOD COUNT 4.07 10^6/uL (4.30-6.10); WHITE BLOOD COUNT 11.7 10^3/uL (4.0-10.0)
[2018-03-25] MEDS: ONDANSETRON 4MG/2ML VIAL (J2405) IV (18:35)
[2018-03-25] MEDS: MORPHINE 2 MG/ML 1ML SYRINGE (J2270) IV (18:35)
[2018-03-25] MEDS: LORazepam 2 MG/ML VIAL (J2060) IV (18:35)
[2018-03-25 19:01] LABS: ALBUMIN 3.9 GM/DL (3.2-5.2); ALBUMIN/GLOBULIN RATIO 1.11 (1.00-1.93); ALKALINE PHOSPHATASE 269 U/L (45-117); ALT/SGPT 188 U/L (12-78); ANION GAP 10 MEQ/L (8-16); AST/SGOT 510 U/L (7-37); BILIRUBIN,DIRECT 0.7 MG/DL (0.0-0.2); BLOOD UREA NITROGEN 33 MG/DL (7-18); CALCIUM LEVEL 8.7 MG/DL (8.8-10.2); CARBON DIOXIDE LEVEL 21 MEQ/L (21-32); CHLORIDE LEVEL 110 MEQ/L (98-107); CREATININE FOR GFR 2.17 MG/DL (0.70-1.30); GLOMERULAR FILTRATION RATE 30.8 (>35); GLUCOSE, FASTING 231 MG/DL (70-100); LIPASE 1283 U/L (73-393); POTASSIUM SERUM 4.6 MEQ/L (3.5-5.1); SODIUM LEVEL 141 MEQ/L (136-145); TOTAL PROTEIN 7.4 GM/DL (6.4-8.2)
[2018-03-25] MEDS: GASTROGRAFIN SOLUTION 30ML PO ×2 (19:30→20:00)
[2018-03-25 19:46] LABS: LACTIC ACID SEPSIS PROTOCOL 4.2 MMOL/L (0.4-2.0)
[2018-03-25] MEDS: METOCLOPRAMIDE INJ 10MG/2ML VIAL (J2765) IV (20:00)
[2018-03-25] MEDS: NS IV (22:15)
[2018-03-25] MEDS: DILUENT IV (22:15)
[2018-03-25] MEDS: PIPERACILLIN/TAZOBACTAM SOD 3.375 GM in D5W MINI-BAG PLUS 50 ML IV (22:15)
[2018-03-25 23:39] LABS: BEDSIDE GLUCOSE 216 MG/DL (83-110)
== END 2018-03-26 02:00 | disposition short-term general hospital (02) ==
LOC: M ED 03-26 02:00
DX: K83.0 Cholangitis (principal); D72.829 Elevated white blood cell count, unspecified; R74.0 Nonspecific elevation of levels of transaminase and lactic acid dehydrogenase [LDH]; R11.2 Nausea with vomiting, unspecified; I12.9 Hypertensive chronic kidney disease with stage 1 through stage 4 chronic kidney disease, or unspecified chronic kidney disease; K57.90 Diverticulosis of intestine, part unspecified, without perforation or abscess without bleeding; K42.9 Umbilical hernia without obstruction or gangrene; E78.00 Pure hypercholesterolemia, unspecified; K21.9 Gastro-esophageal reflux disease without esophagitis; Z85.46 Personal history of malignant neoplasm of prostate; E11.51 Type 2 diabetes mellitus with diabetic peripheral angiopathy without gangrene; G47.33 Obstructive sleep apnea (adult) (pediatric); N18.4 Chronic kidney disease, stage 4 (severe); Z87.19 Personal history of other diseases of the digestive system; Z79.899 Other long term (current) drug therapy; Z79.82 Long term (current) use of aspirin
CPT/HCPCS: Q9963

== ENCOUNTER → 2018-04-26 | Outpatient (REF) | payer MEDICARE, OTHER ==
[2018-04-26 19:47] LABS: BASO # 0.1 10^3/uL (0.0-0.2); BASO % 0.3 % (0.0-1.0); EOS % 0.2 % (0.0-3.0); HEMATOCRIT 37.1 % (42.0-52.0); HEMOGLOBIN 12.3 g/dl (13.5-17.5); LYMPH # 1.4 10^3/uL (1.5-4.5); LYMPH % 7.4 % (24.0-44.0); MEAN CORPUSCULAR HEMOGLOBIN 29.3 pg (27.0-33.0); MEAN CORPUSCULAR HGB CONC 33.2 g/dl (32.0-36.5); MEAN CORPUSCULAR VOLUME 88.3 fl (80.0-96.0); MONO # 0.8 10^3/uL (0.0-0.8); MONO % 4.2 % (0.0-5.0); NEUTROPHILS % 85.9 % (36.0-66.0); PLATELET COUNT, AUTOMATED 294 10^3/uL (150-450); WHITE BLOOD COUNT 18.6 10^3/uL (4.0-10.0)
[2018-04-26 19:57] LABS: ALBUMIN 3.8 GM/DL (3.2-5.2); ALBUMIN/GLOBULIN RATIO 1.06 (1.00-1.93); ALKALINE PHOSPHATASE 132 U/L (45-117); ALT/SGPT 29 U/L (12-78); ANION GAP 11 MEQ/L (8-16); AST/SGOT 8 U/L (7-37); BILIRUBIN,TOTAL 0.4 MG/DL (0.2-1.0); BLOOD UREA NITROGEN 59 MG/DL (7-18); CARBON DIOXIDE LEVEL 23 MEQ/L (21-32); CHLORIDE LEVEL 102 MEQ/L (98-107); CREATININE FOR GFR 2.48 MG/DL (0.70-1.30); GLOMERULAR FILTRATION RATE 26.4 (>35); GLUCOSE, FASTING 399 MG/DL (70-100); SODIUM LEVEL 136 MEQ/L (136-145); TOTAL PROTEIN 7.4 GM/DL (6.4-8.2)
[2018-04-26 19:58] LABS: POTASSIUM SERUM 5.3 MEQ/L (3.5-5.1)
== END ==
LOC: M SFHCADAM 14:04
DX: R63.4 Abnormal weight loss (principal)
CPT/HCPCS: 80053

== ENCOUNTER → 2018-05-04 | Outpatient (REF) | payer MEDICARE, OTHER ==
[2018-05-04 12:36] LABS: BASO # 0.1 10^3/uL (0.0-0.2); BASO % 0.9 % (0.0-1.0); EOS # 0.4 10^3/uL (0.0-0.50); EOS % 3.3 % (0.0-3.0); HEMATOCRIT 33.4 % (42.0-52.0); HEMOGLOBIN 11.1 g/dl (13.5-17.5); IMMATURE GRANULOCYTE % 1.7 % (0-3.0); LYMPH # 1.7 10^3/uL (1.5-4.5); LYMPH % 15.2 % (24.0-44.0); MEAN CORPUSCULAR HEMOGLOBIN 29.3 pg (27.0-33.0); MEAN CORPUSCULAR HGB CONC 33.2 g/dl (32.0-36.5); MEAN CORPUSCULAR VOLUME 88.1 fl (80.0-96.0); MONO # 1.5 10^3/uL (0.0-0.8); MONO % 14.1 % (0.0-5.0); NEUTROPHILS % 64.8 % (36.0-66.0); PLATELET COUNT, AUTOMATED 254 10^3/uL (150-450); RED BLOOD COUNT 3.79 10^6/uL (4.30-6.10); RED CELL DISTRIBUTION WIDTH 12.9 % (11.5-14.5); WHITE BLOOD COUNT 10.9 10^3/uL (4.0-10.0)
[2018-05-04 12:56] LABS: ANION GAP 11 MEQ/L (8-16); BLOOD UREA NITROGEN 57 MG/DL (7-18); CALCIUM LEVEL 8.6 MG/DL (8.8-10.2); CARBON DIOXIDE LEVEL 21 MEQ/L (21-32); CHLORIDE LEVEL 106 MEQ/L (98-107); GLOMERULAR FILTRATION RATE 27.5 (>35); GLUCOSE, FASTING 122 MG/DL (70-100); POTASSIUM SERUM 4.9 MEQ/L (3.5-5.1); SODIUM LEVEL 138 MEQ/L (136-145)
== END ==
LOC: M SFHCADAM 09:20
DX: E11.9 Type 2 diabetes mellitus without complications (principal)
CPT/HCPCS: 80048

== ENCOUNTER → 2018-05-16 | Outpatient (CLI) | payer MEDICARE, OTHER | LOC: M ADAMS 12:06 | DX: R05 Cough (principal); R91.8 Other nonspecific abnormal finding of lung field | CPT/HCPCS: 71046 ==

== ENCOUNTER → 2018-06-04 | Outpatient (REF) | payer MEDICARE, OTHER ==
[2018-06-04 19:54] LABS: ANION GAP 9 MEQ/L (8-16); BLOOD UREA NITROGEN 36 MG/DL (7-18); CALCIUM LEVEL 8.8 MG/DL (8.8-10.2); CARBON DIOXIDE LEVEL 22 MEQ/L (21-32); CHLORIDE LEVEL 110 MEQ/L (98-107); GLOMERULAR FILTRATION RATE 33.9 (>35); GLUCOSE, FASTING 223 MG/DL (70-100); SODIUM LEVEL 141 MEQ/L (136-145)
[2018-06-04 19:55] LABS: BASO # 0.1 10^3/uL (0.0-0.2); EOS # 0.4 10^3/uL (0.0-0.50); EOS % 4.5 % (0.0-3.0); HEMATOCRIT 30.6 % (42.0-52.0); HEMOGLOBIN 9.9 g/dl (13.5-17.5); IMMATURE GRANULOCYTE % 1.4 % (0-3.0); LYMPH # 1.7 10^3/uL (1.5-4.5); LYMPH % 21.9 % (24.0-44.0); MEAN CORPUSCULAR HEMOGLOBIN 28.8 pg (27.0-33.0); MEAN CORPUSCULAR HGB CONC 32.4 g/dl (32.0-36.5); MONO # 0.9 10^3/uL (0.0-0.8); MONO % 11.5 % (0.0-5.0); NEUTROPHILS # 4.7 10^3/uL (1.8-7.7); NEUTROPHILS % 59.7 % (36.0-66.0); PLATELET COUNT, AUTOMATED 256 10^3/uL (150-450); RED BLOOD COUNT 3.44 10^6/uL (4.30-6.10); RED CELL DISTRIBUTION WIDTH 13.7 % (11.5-14.5); WHITE BLOOD COUNT 7.9 10^3/uL (4.0-10.0)
== END ==
LOC: M SFHCADAM 13:50
DX: E11.9 Type 2 diabetes mellitus without complications (principal); D63.8 Anemia in other chronic diseases classified elsewhere; N18.4 Chronic kidney disease, stage 4 (severe)
CPT/HCPCS: 80048

== ENCOUNTER 2018-06-28 06:51 | Day surgery (SDC) | payer MEDICARE, OTHER ==
[2018-06-28] MEDS: NS 1,000 ML IV (07:15)
[2018-06-28] MEDS ORDERED: LIDOCAINE 2% INJ 100 MG/5 ML SDV (FOR ANES.) As Ordered (07:42)
[2018-06-28] MEDS ORDERED: PROPOFOL 200 MG/20 ML VIAL As Ordered ×3 (07:42→08:32)
== END 2018-06-28 09:20 | disposition home or self-care (01) ==
LOC: M OPP 06:51
DX: D50.9 Iron deficiency anemia, unspecified (principal); D12.2 Benign neoplasm of ascending colon; D12.3 Benign neoplasm of transverse colon; K57.30 Diverticulosis of large intestine without perforation or abscess without bleeding; K64.8 Other hemorrhoids; K44.9 Diaphragmatic hernia without obstruction or gangrene; K57.10 Diverticulosis of small intestine without perforation or abscess without bleeding; I12.9 Hypertensive chronic kidney disease with stage 1 through stage 4 chronic kidney disease, or unspecified chronic kidney disease; E78.5 Hyperlipidemia, unspecified; K21.9 Gastro-esophageal reflux disease without esophagitis; K85.90 Acute pancreatitis without necrosis or infection, unspecified; R12 Heartburn; R06.02 Shortness of breath; M19.90 Unspecified osteoarthritis, unspecified site; R51 Headache; G47.30 Sleep apnea, unspecified; R06.83 Snoring; N18.9 Chronic kidney disease, unspecified; Z85.46 Personal history of malignant neoplasm of prostate; Z79.82 Long term (current) use of aspirin; Z79.899 Other long term (current) drug therapy; Z79.84 Long term (current) use of oral hypoglycemic drugs
CPT/HCPCS: 45385

== ENCOUNTER → 2018-07-18 | Outpatient (CLI) | payer MEDICARE, OTHER | LOC: M ADAMS 13:05 | DX: M79.661 Pain in right lower leg (principal) | CPT/HCPCS: 73590 ==

== ENCOUNTER → 2018-09-10 | Outpatient (REF) | payer MEDICARE, OTHER ==
[2018-09-10 13:01] LABS: BASO # 0.1 10^3/uL (0.0-0.2); BASO % 0.7 % (0.0-1.0); EOS # 0.3 10^3/uL (0.0-0.50); EOS % 2.7 % (0.0-3.0); HEMATOCRIT 34.2 % (42.0-52.0); HEMOGLOBIN 11.1 g/dl (13.5-17.5); IMMATURE GRANULOCYTE % 0.6 % (0-3.0); LYMPH # 2.8 10^3/uL (1.5-4.5); LYMPH % 28.3 % (24.0-44.0); MEAN CORPUSCULAR HGB CONC 32.5 g/dl (32.0-36.5); MEAN CORPUSCULAR VOLUME 86.1 fl (80.0-96.0); MONO # 1.1 10^3/uL (0.0-0.8); MONO % 11.4 % (0.0-5.0); NEUTROPHILS # 5.5 10^3/uL (1.8-7.7); NEUTROPHILS % 56.3 % (36.0-66.0); PLATELET COUNT, AUTOMATED 316 10^3/uL (150-450); RED BLOOD COUNT 3.97 10^6/uL (4.30-6.10); RED CELL DISTRIBUTION WIDTH 13.5 % (11.5-14.5); WHITE BLOOD COUNT 9.8 10^3/uL (4.0-10.0)
[2018-09-10 13:22] LABS: ALBUMIN 3.9 GM/DL (3.2-5.2); ALKALINE PHOSPHATASE 82 U/L (45-117); ALT/SGPT 15 U/L (12-78); ANION GAP 8 MEQ/L (8-16); AST/SGOT 12 U/L (7-37); BILIRUBIN,TOTAL 0.3 MG/DL (0.2-1.0); BLOOD UREA NITROGEN 24 MG/DL (7-18); CALCIUM LEVEL 8.7 MG/DL (8.8-10.2); CARBON DIOXIDE LEVEL 26 MEQ/L (21-32); CHLORIDE LEVEL 108 MEQ/L (98-107); CREATININE FOR GFR 1.64 MG/DL (0.70-1.30); GLOMERULAR FILTRATION RATE 42.5 (>35); GLUCOSE, FASTING 99 MG/DL (70-100); POTASSIUM SERUM 4.6 MEQ/L (3.5-5.1); SODIUM LEVEL 142 MEQ/L (136-145); TOTAL PROTEIN 6.9 GM/DL (6.4-8.2)
[2018-09-10 15:03] LABS: ESTIMATED AVERAGE GLUCOSE 180 MG/DL (60-110); HEMOGLOBIN A1c 7.9 %
== END ==
LOC: M SFHCADAM 09:24
DX: D64.9 Anemia, unspecified (principal)
CPT/HCPCS: 80053

== ENCOUNTER → 2018-10-25 | Outpatient (REF) | payer MEDICARE, OTHER ==
[2018-10-25 19:49] LABS: RHEUMATOID FACTOR QUANT < 10.0 IU/ML (<15.0)
[2018-10-25 20:27] LABS: ERYTHROCYTE SEDIMENTATION RATE 35 mm/hr (0-30)
== END ==
LOC: M SFHCADAM 12:23
DX: M79.89 Other specified soft tissue disorders (principal)
CPT/HCPCS: 85652

== ENCOUNTER → 2018-10-25 | Outpatient (CLI) | payer MEDICARE, OTHER ==
[~2018-10-25] MED LIST changes: -AMLO5TAB2 PO; +AMLO5TAB6 PO; +ASPI1TAB PO; +FERR32TA PO; +FOLI1TAB11 PO; -LOSA100T36 PO; +LOSA100T50 PO; +SPIR-10 PO; +VITA100072 PO
--- NOTE | 2018-10-25 14:10 | REP ---
Clinical: Bilateral hand swelling. Technique: AP and lateral views of the right and left hand. Findings: Advanced arthritic degenerative changes include subchondral sclerosis with heterogeneity and scattered cystic changes, marginal spurring/osteophyte formation, and joint space narrowing. Findings are primarily noted involving the first carpal metacarpal joints, metacarpophalangeal joint and diffuse interphalangeal joints (left greater than right). Overlying soft tissue swelling. No acute fracture or dislocation. Impression: Advanced osteoarthritic degenerative changes. Electronically Signed by Byron Bonilla MD 10/25/2018 02:01 P
== END ==
LOC: M ADAMS 12:26
PROVIDERS: ATTEND Family Medicine
DX: M19.041 Primary osteoarthritis, right hand (principal); M19.042 Primary osteoarthritis, left hand; M25.741 Osteophyte, right hand; M25.742 Osteophyte, left hand; M79.89 Other specified soft tissue disorders
CPT/HCPCS: 73120; 85652; 86038; 86431; 86617; G0463

== ENCOUNTER → 2019-02-18 | Outpatient (REF) | payer MEDICARE, OTHER ==
[~2019-02-18] MED LIST changes: -ASPI1TAB PO; +ASPI81TA26 PO; +VITA100018 PO; -VITA100072 PO
[2019-02-18 19:26] LABS: APPEARANCE, URINE CLEAR (CLEAR); BACTERIA, URINE AUTO NEGATIVE (NEGATIVE); BILIRUBIN, URINE AUTO NEGATIVE (NEGATIVE); BLOOD, URINE BLOOD NEGATIVE (NEGATIVE); COLOR, URINE YELLOW (YELLOW); GLUCOSE, URINE (UA) AUTO NEGATIVE (NEGATIVE); KETONE, URINE AUTO NEGATIVE (NEGATIVE); LEUKOCYTE ESTERASE, URINE AUTO NEGATIVE (NEGATIVE); MUCUS, URINE SMALL (NEGATIVE); NITRITE, URINE AUTO NEGATIVE (NEGATIVE); PROTEIN, URINE AUTO NEGATIVE (NEGATIVE); RBC, URINE AUTO 0 /HPF (0-3); SPECIFIC GRAVITY URINE AUTO 1.009 (1.002-1.035); SQUAMOUS EPITHELIAL CELL UR AU 0 /HPF (0-6); UROBILINOGEN, URINE AUTO 0.2 mg/dL (0.0-2.0); WBC, URINE AUTO 0 /HPF (0-3)
[2019-02-18 20:04] LABS: C REACTIVE PROTEIN QUANTITATIV 1.51 MG/DL (0.00-0.30); PROSTATIC SPECIFIC AG MONITOR < 0.01 NG/ML (< 4.00); RHEUMATOID FACTOR QUANT < 10.0 IU/ML (<15.0); TOTAL PROTEIN 6.7 GM/DL (6.4-8.2)
[2019-02-20 10:57] LABS: ALBUMIN 3.63 GM/DL (3.29-5.55); ALBUMIN % 54.2 % (55.8-66.1); ALPHA-1-GLOBULIN % 5.2 % (2.9-4.9); ALPHA-1-GLOBULINS 0.35 GM/DL (0.17-0.41); ALPHA-2-GLOBULINS 0.84 GM/DL (0.42-0.99); ALPHA-2-GLOBULINS % 12.5 % (7.1-11.8); BETA-1-GLOBULINS 0.41 GM/DL (0.28-0.60); BETA-1-GLOBULINS % 6.1 % (4.7-7.2); BETA-2-GLOBULINS 0.34 GM/DL (0.19-0.55); GAMMA GLOBULINS 1.14 GM/DL (0.65-1.58)
[2019-02-20 14:11] LABS: RNP ANTIBODY < 0.2 AI (0.0-0.9); SMITHS ANTIBODY < 0.2 AI (0.0-0.9)
[2019-02-21 00:06] LABS: ANA (HEP2) Negative (.); CYCLIC CITRULLINATED PEPTIDE 8 units (0-19)
== END ==
LOC: M SFHCPLAZ 13:54
PROVIDERS: ATTEND Internal Medicine Rheumatology
DX: M19.90 Unspecified osteoarthritis, unspecified site (principal); R60.0 Localized edema

== ENCOUNTER → 2019-02-18 | Outpatient (CLI) | payer MEDICARE, OTHER ==
--- NOTE | 2019-02-18 15:09 | REP ---
BILATERAL WRIST SERIES: Eight views. HISTORY: Unspecified osteoarthritis. Comparison left hand views are from October 25, 2018. FINDINGS: Four views of each wrist demonstrate moderate joint space narrowing, sclerosis and spur formation at the 1st carpometacarpal articulations. In addition, there is joint space narrowing and subcortical cyst formation and early sclerosis at the 2nd metacarpophalangeal joints bilaterally. This is more prominent on the right than the left. There is some diffuse osteopenia. Subcortical cyst formation is visible in the distal radial styloid and in the navicular bone on the right. No definite erosive changes are seen. IMPRESSION: Osteoarthritic changes. Diffuse osteopenia. Electronically Signed by Presley Cervantes MD 02/18/2019 03:20 P
== END ==
LOC: M ADAMS 14:13
PROVIDERS: ATTEND Internal Medicine Rheumatology
DX: M19.031 Primary osteoarthritis, right wrist (principal); M19.032 Primary osteoarthritis, left wrist; M85.431 Solitary bone cyst, right ulna and radius; M25.731 Osteophyte, right wrist; M25.732 Osteophyte, left wrist; M85.831 Other specified disorders of bone density and structure, right forearm; M85.832 Other specified disorders of bone density and structure, left forearm; R60.0 Localized edema
CPT/HCPCS: 73110; 81001; 84153; 84165; 84443; 84550; 85652; 86038; 86140; 86200; 86255; 86431; G0463

== ENCOUNTER → 2019-03-04 | Outpatient (CLI) | payer MEDICARE, OTHER ==
--- NOTE | 2019-03-04 17:44 | REP ---
REASON: Osteoarthritis and pain. Standing bilateral AP view of the knees show the compartments to be symmetric and relatively well maintained without prominent marginal osteophytosis, fracture, or destructive osseous lesion. Electronically Signed by Josh Ryan DO 03/04/2019 06:48 P
== END ==
LOC: M ADAMS 16:03
PROVIDERS: ATTEND Internal Medicine Rheumatology
DX: M25.561 Pain in right knee (principal); M25.562 Pain in left knee

== ENCOUNTER → 2019-03-07 | Outpatient (REF) | payer MEDICARE, OTHER ==
[2019-03-07 19:47] LABS: CHOLESTEROL RISK RATIO 2.685 (<5)
[2019-03-07 20:39] LABS: HEMOGLOBIN A1c 9.2 %
== END ==
LOC: M SFHCADAM 10:03
PROVIDERS: ATTEND Physician Assistant Medical
DX: E11.9 Type 2 diabetes mellitus without complications (principal); I10 Essential (primary) hypertension; E53.8 Deficiency of other specified B group vitamins; D63.8 Anemia in other chronic diseases classified elsewhere
CPT/HCPCS: 80061; 82607; 83036; G0463

== ENCOUNTER → 2019-03-28 | Outpatient (REF) | payer MEDICARE, OTHER ==
[2019-03-28 13:07] LABS: BASO # 0.1 10^3/uL (0.0-0.2); EOS # 0.3 10^3/uL (0.0-0.50); EOS % 3.7 % (0.0-3.0); HEMATOCRIT 30.3 % (42.0-52.0); HEMOGLOBIN 9.9 g/dl (13.5-17.5); LYMPH # 1.6 10^3/uL (1.5-4.5); LYMPH % 17.6 % (24.0-44.0); MEAN CORPUSCULAR HEMOGLOBIN 28.3 pg (27.0-33.0); MEAN CORPUSCULAR HGB CONC 32.7 g/dl (32.0-36.5); MEAN CORPUSCULAR VOLUME 86.6 fl (80.0-96.0); MONO % 11.3 % (0.0-5.0); NEUTROPHILS # 5.8 10^3/uL (1.8-7.7); NEUTROPHILS % 65.2 % (36.0-66.0); PLATELET COUNT, AUTOMATED 293 10^3/uL (150-450)
[2019-03-28 13:50] LABS: ALBUMIN 3.5 GM/DL (3.2-5.2); BILIRUBIN,TOTAL 0.4 MG/DL (0.2-1.0); C REACTIVE PROTEIN QUANTITATIV 0.72 MG/DL (0.00-0.30); CALCIUM LEVEL 8.7 MG/DL (8.8-10.2); CREATININE FOR GFR 2.55 MG/DL (0.70-1.30); GLOMERULAR FILTRATION RATE 25.5 (>35); POTASSIUM SERUM 4.8 MEQ/L (3.5-5.1); TOTAL PROTEIN 7.1 GM/DL (6.4-8.2); URIC ACID 7.2 MG/DL (3.5-7.2)
== END ==
LOC: M SFHCADAM 09:32
PROVIDERS: ATTEND Internal Medicine Rheumatology
DX: M10.39 Gout due to renal impairment, multiple sites (principal)

== ENCOUNTER → 2019-07-02 | Outpatient (REF) | payer MEDICARE, OTHER ==
[2019-07-02 20:32] LABS: C REACTIVE PROTEIN QUANTITATIV 0.31 MG/DL (0.00-0.30); URIC ACID 8.3 MG/DL (3.5-7.2)
[2019-07-02 20:36] LABS: ALBUMIN 3.9 GM/DL (3.2-5.2); ALT/SGPT 17 U/L (12-78); BILIRUBIN,TOTAL 0.4 MG/DL (0.2-1.0); BLOOD UREA NITROGEN 57 MG/DL (7-18); CALCIUM LEVEL 8.9 MG/DL (8.8-10.2); CARBON DIOXIDE LEVEL 19 MEQ/L (21-32); CHLORIDE LEVEL 110 MEQ/L (98-107); CREATININE FOR GFR 2.26 MG/DL (0.70-1.30); FERRITIN 32 NG/ML (26-388); GLOMERULAR FILTRATION RATE 29.3 (>35); GLUCOSE, FASTING 184 MG/DL (70-100); IRON (FE) 76 UG/DL (65-175); POTASSIUM SERUM 4.5 MEQ/L (3.5-5.1); SODIUM LEVEL 140 MEQ/L (136-145); TOTAL IRON BINDING CAPACITY 292 UG/DL (250-450); TOTAL PROTEIN 6.8 GM/DL (6.4-8.2)
[2019-07-02 20:37] LABS: BASO # 0.1 10^3/uL (0.0-0.2); EOS # 0.3 10^3/uL (0.0-0.5); EOS % 3.2 % (0.0-3.0); HEMATOCRIT 33.2 % (42.0-52.0); HEMOGLOBIN 10.8 g/dl (13.5-17.5); LYMPH # 2.1 10^3/uL (1.5-5.0); LYMPH % 22.7 % (24.0-44.0); MEAN CORPUSCULAR HEMOGLOBIN 28.7 pg (27.0-33.0); MEAN CORPUSCULAR HGB CONC 32.5 g/dl (32.0-36.5); MEAN CORPUSCULAR VOLUME 88.3 fl (80.0-96.0); MONO # 0.9 10^3/uL (0.0-0.8); MONO % 10.1 % (0.0-5.0); NEUTROPHILS # 5.6 10^3/uL (1.5-8.5); NEUTROPHILS % 61.8 % (36.0-66.0); PLATELET COUNT, AUTOMATED 283 10^3/uL (150-450); RED BLOOD COUNT 3.76 10^6/uL (4.30-6.10); WHITE BLOOD COUNT 9.1 10^3/uL (4.0-10.0)
[2019-07-02 20:41] LABS: VITAMIN B12 LEVEL 1150 PG/ML
[2019-07-02 20:42] LABS: FOLATE > 24.0 NG/ML
[2019-07-02 21:07] LABS: HEMOGLOBIN A1c 8.2 %
== END ==
LOC: M SFHCADAM 14:10
PROVIDERS: ATTEND Physician Assistant Medical
DX: I10 Essential (primary) hypertension (principal); E11.9 Type 2 diabetes mellitus without complications; E53.8 Deficiency of other specified B group vitamins; D63.8 Anemia in other chronic diseases classified elsewhere; M10.39 Gout due to renal impairment, multiple sites
CPT/HCPCS: 80053; 82607; 82728; 82746; 83036; 83550; 84550; 85025; 86140; G0463

== ENCOUNTER → 2019-08-29 | Outpatient (CLI) | payer MEDICARE, OTHER ==
--- NOTE | 2019-08-29 11:28 | REP ---
Clinical: Left hip pain. Technique: Neutral and frog lateral views of the left hip. Findings: Moderate/early advanced osteoarthritic degenerative changes include near complete joint space obliteration with subchondral heterogeneity and cystic changes as well as marginal osteophytosis. No acute fracture dislocation. Impression: Moderate/early advanced osteoarthritic degenerative changes Electronically Signed by Byron Bonilla MD 08/29/2019 11:19 A
== END ==
LOC: M ADAMS 09:47
PROVIDERS: ATTEND Physician Assistant
DX: M16.12 Unilateral primary osteoarthritis, left hip (principal)

== ENCOUNTER → 2019-09-19 | Outpatient (CLI) | payer MEDICARE, OTHER ==
[~2019-09-19] MED LIST changes: +CONRAY-43 43% 50ML VIAL (Q9960) As Ordered ONE; +LIDOCAINE 1% MDV 20ML VIAL As Ordered ONE; +methylPREDNISolone SUSP 40 MG/ML (DEPO-medrol) VIAL (J1030) As Ordered ONE
--- NOTE | 2019-09-19 13:06 | REP ---
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 Clay. The benefits and risks including but not limited to pain, infection, bleeding and anaphylaxis were explained to the patient and informed consent was obtained both verbally and written. Directly prior to the start of the procedure, a formal timeout was completed in the procedure room. The left femoral neck joint space was localized using fluoroscopic guidance. The skin was prepped and draped in the usual sterile fashion. 5 mL of 1% lidocaine was used as a local anesthetic. Using fluoroscopic guidance a 22-gauge spinal needle was inserted and advanced to the left femoral neck joint space. 1 mL of Conray 43 was injected to verify needle placement. A 5 mL solution containing a 3 mL 1% lidocaine 10 mg/ml and 2 ml of Depo-Medrol 40 mg/ml was injected into the joint. The needle was removed and hemostasis was achieved. The patient tolerated the procedure well and there were no immediate complications. 0.2 minutes of fluoroscopy time was utilized for this procedure. Some fluoroscopic images are performed with last image hold technology. These images require no additional radiation. Reviewed by EARNESTINE Colmenares 09/19/2019 12:26 P Electronically Signed by Jeison Clay MD 09/19/2019 12:57 P
== END ==
LOC: M RADPRO 10:17
PROVIDERS: ATTEND Physician Assistant Surgical
DX: M16.12 Unilateral primary osteoarthritis, left hip (principal)
CPT/HCPCS: 20610; 77002; J1030; Q9960

== ENCOUNTER → 2019-10-03 | Outpatient (REF) | payer MEDICARE, OTHER ==
[~2019-10-03] MED LIST changes: +ALLO100T; +COLC1TAB13; -CONRAY-43 43% 50ML VIAL (Q9960) As Ordered ONE; +FURO40TA2; -LIDOCAINE 1% MDV 20ML VIAL As Ordered ONE; +MIDO2.5T; -methylPREDNISolone SUSP 40 MG/ML (DEPO-medrol) VIAL (J1030) As Ordered ONE
[2019-10-03 16:07] LABS: BASO # 0.1 10^3/uL (0.0-0.2); BASO % 0.8 % (0.0-1.0); EOS # 0.2 10^3/uL (0.0-0.5); EOS % 1.8 % (0.0-3.0); HEMOGLOBIN 11.8 g/dl (13.5-17.5); LYMPH # 2.1 10^3/uL (1.5-5.0); LYMPH % 17.5 % (24.0-44.0); MEAN CORPUSCULAR HEMOGLOBIN 30.6 pg (27.0-33.0); MEAN CORPUSCULAR HGB CONC 32.8 g/dl (32.0-36.5); MEAN CORPUSCULAR VOLUME 93.3 fl (80.0-96.0); MONO % 8.2 % (0.0-5.0); NEUTROPHILS # 8.5 10^3/uL (1.5-8.5); NEUTROPHILS % 69.1 % (36.0-66.0); PLATELET COUNT, AUTOMATED 263 10^3/uL (150-450); RED BLOOD COUNT 3.86 10^6/uL (4.30-6.10); WHITE BLOOD COUNT 12.2 10^3/uL (4.0-10.0)
[2019-10-03 16:19] LABS: ALT/SGPT 22 U/L (12-78); BILIRUBIN,TOTAL 0.3 MG/DL (0.2-1.0); BLOOD UREA NITROGEN 58 MG/DL (7-18); CALCIUM LEVEL 9.3 MG/DL (8.8-10.2); CARBON DIOXIDE LEVEL 26 MEQ/L (21-32); CHLORIDE LEVEL 107 MEQ/L (98-107); CREATININE FOR GFR 2.38 MG/DL (0.70-1.30); GLOMERULAR FILTRATION RATE 27.6 (>35); GLUCOSE, FASTING 186 MG/DL (70-100); POTASSIUM SERUM 4.7 MEQ/L (3.5-5.1); SODIUM LEVEL 138 MEQ/L (136-145)
[2019-10-03 16:20] LABS: ALBUMIN 3.7 GM/DL (3.2-5.2); C REACTIVE PROTEIN QUANTITATIV < 0.30 MG/DL (0.00-0.30); CHOLESTEROL LEVEL 156 MG/DL (<200); CHOLESTEROL RISK RATIO 3.627 (<5); HDL CHOLESTEROL 43 MG/DL (>40); LDL CHOLESTEROL 38 MG/DL (<100); NON-HDL-C 113 MG/DL; TRIGLYCERIDES LEVEL 373 MG/DL (<150)
[2019-10-03 17:00] LABS: ERYTHROCYTE SEDIMENTATION RATE 31 mm/hr (0-20)
== END ==
LOC: M SFHCADAM 11:55
PROVIDERS: ATTEND Internal Medicine Rheumatology
DX: I10 Essential (primary) hypertension (principal); D63.8 Anemia in other chronic diseases classified elsewhere; E11.9 Type 2 diabetes mellitus without complications; M10.39 Gout due to renal impairment, multiple sites
CPT/HCPCS: 80053; 80061; 83036; 84443; 85025; 85652; 86140; G0463

== ENCOUNTER 2019-10-19 14:27 | Emergency (ER) | payer MEDICARE, OTHER ==
[~2019-10-19] VITALS: Ht 182.9 cm; Wt 83.7 kg
[~2019-10-19 14:27] MED LIST changes: -ALLO100T; -COLC1TAB13; -FURO40TA2; -MIDO2.5T
[2019-10-19] MEDS ORDERED: MIDO2.5T (14:35)
[2019-10-19] MEDS ORDERED: ALLO100T (14:35)
[2019-10-19] MEDS ORDERED: COLC1TAB13 (14:35)
[2019-10-19] MEDS ORDERED: FURO40TA2 (14:35)
[2019-10-19] MEDS ORDERED: NS 500 ML IV ONE (16:00)
[2019-10-19 16:24] LABS: BASO % 0.5 % (0.0-1.0); EOS # 0.1 10^3/uL (0.0-0.5); EOS % 0.6 % (0.0-3.0); HEMATOCRIT 34.9 % (42.0-52.0); HEMOGLOBIN 11.3 g/dl (13.5-17.5); LYMPH # 0.6 10^3/uL (1.5-5.0); LYMPH % 6.3 % (24.0-44.0); MEAN CORPUSCULAR HEMOGLOBIN 29.8 pg (27.0-33.0); MEAN CORPUSCULAR HGB CONC 32.4 g/dl (32.0-36.5); MEAN CORPUSCULAR VOLUME 92.1 fl (80.0-96.0); MONO % 11.1 % (0.0-5.0); PLATELET COUNT, AUTOMATED 194 10^3/uL (150-450); RED BLOOD COUNT 3.79 10^6/uL (4.30-6.10); WHITE BLOOD COUNT 8.7 10^3/uL (4.0-10.0)
[2019-10-19 16:50] LABS: INFLUENZA A AMPLIFICATION NEGATIVE (NEGATIVE); INFLUENZA B AMPLIFICATION NEGATIVE (NEGATIVE)
[2019-10-19 16:56] LABS: ALBUMIN 3.5 GM/DL (3.2-5.2); ALT/SGPT 14 U/L (12-78); BILIRUBIN,DIRECT 0.2 MG/DL (0.0-0.2); BILIRUBIN,TOTAL 0.6 MG/DL (0.2-1.0); BLOOD UREA NITROGEN 56 MG/DL (7-18); CALCIUM LEVEL 8.9 MG/DL (8.8-10.2); CARBON DIOXIDE LEVEL 23 MEQ/L (21-32); CHLORIDE LEVEL 105 MEQ/L (98-107); CK-MB VALUE MASS < 1.0 NG/ML (<3.6); CPK CREATINE PHOSPHOKINASE 30 U/L (39-308); CREATININE FOR GFR 2.64 MG/DL (0.70-1.30); FREE T4 0.88 NG/DL (0.76-1.46); GLOMERULAR FILTRATION RATE 24.5 (>35); GLUCOSE, FASTING 176 MG/DL (70-100); LIPASE 86 U/L (73-393); MB/CK RELATIVE INDEX 3.33 (< OR =4); POTASSIUM SERUM 4.7 MEQ/L (3.5-5.1); SODIUM LEVEL 137 MEQ/L (136-145); THYROID STIMULATING HORMONE 0.721 uIU/ML (0.358-3.740); TOTAL PROTEIN 7.1 GM/DL (6.4-8.2); TROPONIN I < 0.02 NG/ML (< 0.10)
[2019-10-19] MEDS ORDERED: MIDODRINE 2.5 MG TAB PO ONE (17:15)
[2019-10-19 17:49] VITALS: O2SAT 98
[2019-10-19 18:18] VITALS: BP 127/72
--- NOTE | 2019-10-19 19:07 | ECGEPIP ---
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
--- NOTE | 2019-10-20 10:57 | REP ---
REASON: Cough. COMPARISON: Multiple, the latest 2 view exam of 01/05/2017 and frontal view of 03/25/2018. There are basilar fibrotic changes status quo. The cardiomediastinal silhouette is unchanged. The heart is not enlarged. There are hilar calcifications status quo. There are no acute patchy parenchymal opacities or pleural effusions. The heart is not enlarged. The osseous structures are within normal limits and unchanged. IMPRESSION: No acute cardiopulmonary disease. Chronic changes as described above. Electronically Signed by Josh Ryan DO 10/20/2019 11:46 A
== END 2019-10-19 18:40 | disposition home or self-care (01) ==
LOC: M ED 14:27
DX: R09.81 Nasal congestion (principal); R63.8 Other symptoms and signs concerning food and fluid intake; E11.51 Type 2 diabetes mellitus with diabetic peripheral angiopathy without gangrene; I12.9 Hypertensive chronic kidney disease with stage 1 through stage 4 chronic kidney disease, or unspecified chronic kidney disease; N18.4 Chronic kidney disease, stage 4 (severe); I73.9 Peripheral vascular disease, unspecified; G47.33 Obstructive sleep apnea (adult) (pediatric); D64.9 Anemia, unspecified; E53.8 Deficiency of other specified B group vitamins; K21.9 Gastro-esophageal reflux disease without esophagitis; Z79.899 Other long term (current) drug therapy; Z79.82 Long term (current) use of aspirin; Z87.891 Personal history of nicotine dependence

== ENCOUNTER → 2019-12-01 | Outpatient (REF) | payer MEDICARE, OTHER ==
[~2019-12-01] MED LIST changes: +ALLO100T; +COLC1TAB13; +FURO40TA2; +MIDO2.5T
[2019-12-01 17:48] LABS: BASO # 0.1 10^3/uL (0.0-0.2); BASO % 0.9 % (0.0-1.0); EOS # 0.3 10^3/uL (0.0-0.5); EOS % 2.8 % (0.0-3.0); HEMATOCRIT 33.1 % (42.0-52.0); HEMOGLOBIN 10.9 g/dl (13.5-17.5); LYMPH % 18.4 % (24.0-44.0); MEAN CORPUSCULAR HEMOGLOBIN 30.4 pg (27.0-33.0); MEAN CORPUSCULAR HGB CONC 32.9 g/dl (32.0-36.5); MEAN CORPUSCULAR VOLUME 92.2 fl (80.0-96.0); MONO # 0.9 10^3/uL (0.0-0.8); MONO % 8.7 % (0.0-5.0); NEUTROPHILS # 7.3 10^3/uL (1.5-8.5); NEUTROPHILS % 67.8 % (36.0-66.0); PLATELET COUNT, AUTOMATED 308 10^3/uL (150-450); RED BLOOD COUNT 3.59 10^6/uL (4.30-6.10); WHITE BLOOD COUNT 10.8 10^3/uL (4.0-10.0)
[2019-12-01 18:15] LABS: ALBUMIN 3.6 GM/DL (3.2-5.2); BILIRUBIN,TOTAL 0.3 MG/DL (0.2-1.0); CALCIUM LEVEL 8.6 MG/DL (8.8-10.2); CREATININE FOR GFR 2.42 MG/DL (0.70-1.30); GLOMERULAR FILTRATION RATE 27.1 (>35); TOTAL PROTEIN 6.9 GM/DL (6.4-8.2)
== END ==
LOC: M LAB REF 15:45
PROVIDERS: ATTEND Physician Assistant
DX: K92.1 Melena (principal)

== ENCOUNTER → 2019-12-30 | Outpatient (REF) | payer MEDICARE, OTHER ==
[2019-12-30 16:58] LABS: BASO # 0.1 10^3/uL (0.0-0.2); EOS # 0.3 10^3/uL (0.0-0.5); EOS % 3.6 % (0.0-3.0); HEMATOCRIT 32.4 % (42.0-52.0); HEMOGLOBIN 10.6 g/dl (13.5-17.5); LYMPH # 1.6 10^3/uL (1.5-5.0); LYMPH % 18.5 % (24.0-44.0); MEAN CORPUSCULAR HEMOGLOBIN 30.2 pg (27.0-33.0); MEAN CORPUSCULAR HGB CONC 32.7 g/dl (32.0-36.5); MEAN CORPUSCULAR VOLUME 92.3 fl (80.0-96.0); MONO # 0.8 10^3/uL (0.0-0.8); MONO % 9.4 % (0.0-5.0); NEUTROPHILS # 5.7 10^3/uL (1.5-8.5); NEUTROPHILS % 66.5 % (36.0-66.0); PLATELET COUNT, AUTOMATED 270 10^3/uL (150-450); RED BLOOD COUNT 3.51 10^6/uL (4.30-6.10); WHITE BLOOD COUNT 8.6 10^3/uL (4.0-10.0)
[2019-12-30 17:20] LABS: ALBUMIN 3.6 GM/DL (3.2-5.2); BILIRUBIN,TOTAL 0.3 MG/DL (0.2-1.0); CALCIUM LEVEL 9.1 MG/DL (8.8-10.2); CREATININE FOR GFR 2.26 MG/DL (0.70-1.30); GLOMERULAR FILTRATION RATE 29.3 (>35); POTASSIUM SERUM 4.2 MEQ/L (3.5-5.1); TOTAL PROTEIN 6.6 GM/DL (6.4-8.2); URIC ACID 6.2 MG/DL (3.5-7.2)
== END ==
LOC: M SFHCRHEU 11:15
PROVIDERS: ATTEND Internal Medicine
DX: M10.39 Gout due to renal impairment, multiple sites (principal)
CPT/HCPCS: 36415; 80053; 84550; 85025; G0463

== ENCOUNTER → 2020-03-17 | Outpatient (REF) | payer MEDICARE, OTHER ==
[2020-03-17 17:04] LABS: ALBUMIN 3.6 GM/DL (3.2-5.2); CALCIUM LEVEL 9.1 MG/DL (8.8-10.2); CREATININE FOR GFR 3.03 MG/DL (0.70-1.30); GLOMERULAR FILTRATION RATE 20.9 (>35); PHOSPHORUS LEVEL 3.8 MG/DL (2.5-4.9); POTASSIUM SERUM 4.5 MEQ/L (3.5-5.1)
== END ==
LOC: M SFHCADAM 09:24
PROVIDERS: ATTEND Physician Assistant Medical
DX: E11.9 Type 2 diabetes mellitus without complications (principal)
CPT/HCPCS: 80069; G0463

== ENCOUNTER → 2020-03-20 | Outpatient (REF) | payer MEDICARE, OTHER ==
[~2020-03-20] MED LIST changes: -ALLO100T; +ALLO100T PO; +CENT1TAB PO; +CEPH25SS PO; -COLC1TAB13; +COLC1TAB13 PO; +FOLI400T PO; -FURO40TA2; +IRON65TA2 PO; +KEFL250C11 PO; -MIDO2.5T; +MIDO2.5T PO; +OMEP40CA97 PO; +REME15TA PO; +SPIR12.9 INH; +VENTAER INH; +VITAD1000T PO
[2020-03-20 12:54] LABS: ALBUMIN 3.3 GM/DL (3.2-5.2); CALCIUM LEVEL 9.1 MG/DL (8.8-10.2); CREATININE FOR GFR 2.75 MG/DL (0.70-1.30); GLOMERULAR FILTRATION RATE 23.4 (>35); PHOSPHORUS LEVEL 3.4 MG/DL (2.5-4.9); POTASSIUM SERUM 4.4 MEQ/L (3.5-5.1)
== END ==
LOC: M SFHCADAM 10:30
PROVIDERS: ATTEND Physician Assistant Medical
DX: N18.4 Chronic kidney disease, stage 4 (severe) (principal)

== ENCOUNTER → 2020-03-30 | Outpatient (REF) | payer MEDICARE, OTHER ==
[2020-03-30 13:21] LABS: ALBUMIN 3.5 GM/DL (3.2-5.2); CALCIUM LEVEL 8.8 MG/DL (8.8-10.2); CREATININE FOR GFR 3.15 MG/DL (0.70-1.30); PHOSPHORUS LEVEL 3.2 MG/DL (2.5-4.9); POTASSIUM SERUM 4.9 MEQ/L (3.5-5.1)
== END ==
LOC: M SFHCADAM 09:18
PROVIDERS: ATTEND Physician Assistant Medical
DX: N18.4 Chronic kidney disease, stage 4 (severe) (principal); L72.3 Sebaceous cyst

== ENCOUNTER 2020-03-31 15:57 | Inpatient (IN) | payer MEDICARE, OTHER ==
[~2020-03-31] VITALS: Ht 180.3 cm; Wt 81.0 kg
[~2020-03-31 15:57] MED LIST changes: -CENT1TAB PO; -CEPH25SS PO; -FOLI400T PO; -IRON65TA2 PO; -KEFL250C11 PO; -OMEP40CA97 PO; -REME15TA PO; -SPIR12.9 INH; -VENTAER INH; -VITAD1000T PO
[2020-03-31] MEDS ORDERED: REME15TA PO (16:13)
[2020-03-31] MEDS ORDERED: OMEP40CA97 PO (16:13)
[2020-03-31] MEDS ORDERED: COLC1TAB13 PO (16:13)
[2020-03-31] MEDS ORDERED: CEPH25SS PO (16:13)
[2020-03-31] MEDS ORDERED: CENT1TAB PO (16:13)
--- NOTE | 2020-03-31 18:06 | REPVR ---
PROCEDURE INFORMATION: Exam: US Soft Tissue Head and Neck, Soft Tissue Exam date and time: 03/31/2020 4:59 PM Age: 89 years old Clinical indication: Abscess, cutaneous; Additional info: Swelling posterior neck; ? Abscess TECHNIQUE: Imaging protocol: Real-time ultrasound scan of the head and neck with image documentation. Exam focused on the soft tissue in the region of clinical concern. COMPARISON: CT Head without contrast 01/05/2017 6:58 PM FINDINGS: Lymph nodes: No lymphadenopathy. Soft tissues: Imaging of the posterior neck in the area of a palpable mass demonstrates a complex predominantly hypoechoic mass measuring 2.8 x 1.8 x 1.9 cm with a is tract extending to the cutaneous surface. No significant hypervascularity on Doppler interrogation. Finding consistent with an abscess although an occult lesion secondarily infected is not excluded. There is marked thickening of the overlying skin and infiltration of the subcutaneous soft tissues. IMPRESSION: Complex mass with a sinus tract extending to the cutaneous surface in the area palpable abnormality. Finding consistent with an abscess with or without associated mass of other etiology. Electronically signed by: Jacob Leone On 03/31/2020 18:06:48 PM
[2020-03-31] MEDS ORDERED: NS 500 ML IV ONE (19:15)
[2020-03-31] MEDS ORDERED: NS 1,000 ML IV SCH (19:15)
[2020-03-31] MEDS ORDERED: cefTRIAXone SOD 1 GM in D5W MINI-BAG PLUS 50 ML IV ONE (19:15)
[2020-03-31] MEDS ORDERED: ACETAMINOPHEN TAB 650MG DOSE (2X325MG) PO PRN (20:00)
[2020-03-31] MEDS ORDERED: SOD POLYSTYRENE SULFONATE SUSP 15 GM/60 ML UD PO ONE (20:15)
[2020-03-31] MEDS ORDERED: GLUCAGON INJ 1MG VIAL SC PRN (20:15)
[2020-03-31] MEDS ORDERED: MAG SULF 1GM/100ML (MAG RUN) 1 GM in IV 1 EA IV ONE (20:15)
[2020-03-31] MEDS ORDERED: GLUCOSE 4GM CHEW TABLET PO PRN (20:15)
[2020-03-31] MEDS ORDERED: DEXTROSE 50% 50 ML SYRINGE IV PRN (20:15)
[2020-03-31] MEDS ORDERED: IRON65TA2 PO (20:47)
[2020-03-31] MEDS ORDERED: SPIR12.9 INH (20:47)
[2020-03-31] MEDS ORDERED: KEFL250C11 PO (20:47)
[2020-03-31] MEDS ORDERED: VITAD1000T PO (20:47)
[2020-03-31] MEDS ORDERED: FOLI400T PO (20:47)
[2020-03-31] MEDS ORDERED: VENTAER INH (20:47)
--- NOTE | 2020-03-31 21:41 | HPEPDOC ---
General Date of Admission Date of Service: Mar 31, 2020 Chief Complaint The patient is a 89-year-old male admitted with a reason for visit of Abnormal Lab Results. Source: Patient Exam Limitations: No limitations Timing/Duration: Other Severity: Other (heart applicable) Associated Symptoms: Other (swelling at the neck) History of Present Illness This is a 89 years old white male with past medical history of diabetes mellitus type 2, GERD, vitamin B12 deficiency, hypertension and kidney disease, anemia of chronic disease, chronic venous insufficiency, chronic kidney disease stage IV, obstructive sleep apnea, was sent to the ED by her PA with abnormal labs. Patient offers no complaints of chest pain, shortness of breath, nausea, vomiting, diarrhea. Patient's only complaint is he has a swelling on his neck which has been increasing in size since last few months now is red and tender to touch, no discharge Home Medications Scheduled Allopurinol (Allopurinol) 100 Mg Tablet, 100 MG PO DAILY, (Reported) Aspirin (Aspirin EC) 81 Mg Tab, 81 MG PO DAILY, (Reported) Cephalexin (Keflex) 250 Mg Capsule, 250 MG PO Q8H, (Reported) FILLED 03/30 Cholecalciferol (Vitamin D3) (Vitamin D3) 1,000 Unit Tablet, 1,000 UNITS PO DAILY, (Reported) Colchicine (Colchicine) 0.6 Mg Tablet, 0.3 MG PO Q2D, (Reported) TAKES ON EVEN DAYS Cyanocobalamin (Vitamin B-12) (Vitamin B-12) 1,000 Mcg Tab, 1,000 MCG PO DAILY, (Reported) Esomeprazole Magnesium (Nexium) 40 Mg Cap, 40 MG PO DAILY, (Reported) Ferrous Sulfate (Iron) 325 Mg Tablet, 325 MG PO DAILY, (Reported) Folic Acid (Folic Acid) 0.4 Mg Tablet, 400 MCG PO DAILY, (Reported) Furosemide (Furosemide) 40 Mg Tablet, 60 MG PO DAILY, (Reported) Glipizide (Glipizide) 10 Mg Tab, 10 MG PO DAILY, (Reported) Midodrine HCl (Midodrine HCl) 2.5 Mg Tablet, 2.5 MG PO TID, (Reported) Mirtazapine (Remeron) 15 Mg Tablet, 15 MG PO QHS, (Reported) Multivit-Min/FA/Lycopen/Lutein (Centrum Silver Tablet) 1 Each Tablet, 1 TAB PO DAILY, (Reported) Pravastatin Sodium (Pravastatin Sodium) 20 Mg Tab, 20 MG PO DAILY, (Reported) Sitagliptin (Januvia) 50 Mg Tab, 50 MG PO DAILY, (Reported) Spironolactone (Spironolactone) 25 Mg Tab, 25 MG PO DAILY, (Reported) Tiotropium [place] (Spiriva Respimat) 4 Gm Mist.inhal, 1 PUFF INH DAILY, (Reported) Scheduled PRN Albuterol Sulfate (Ventolin Hfa) 18 Gm Hfa.aer.ad, 2 PUFF INH QID PRN for SOB/WHEEZING, (Reported) Allergies Coded Allergies: No Known Allergies (Unverified , 06/21/18) Past Medical History Medical History Diabetes mellitus type 2, GERD, vitamin B-12 deficiency, diverticulosis, hypertension, history of pancreatitis, peripheral vascular disease, chronic kidney disease stage IV, mild diastolic dysfunction, grade 2. Anemia of chronic disease, chronic venous insufficiency, obstructive sleep apnea, and diverticulosis Surgical History ORIF right ankle, prostatectomy, lung nodule, tooth extraction Family History Father with diabetes and pneumonia. Mother with diabetes and PVD Social History * Smoker: former Smoker Alcohol: Denies Drugs: denies A-FIB/CHADSVASC A-FIB History Current/History of A-Fib/PAF?: No Review of Systems Constitutional: Denies: Chills, Fever, Malaise, Night Sweats, Weakness, Fatigue, Weight Loss, Lethargy, Other Eyes: Denies: Pain, Vision change, Conjunctivae inflammation, Eyelid inflammation, Redness, Other ENT: Denies: Head Aches, Ear Pain, Dysphagia, Sinus Congestion, Post Nasal Drip, Sore Throat, Epistaxis, Other Symptoms Skin: Denies: Rash, Lesions, Jaundice, Bruising, Itching, Dry, Breakdown, Nail Changes, Other Pulmonary: Denies: Dyspnea, Cough, Pleuritic Chest Pain, Other Symptoms Cardiovascular: Denies: Chest Pain, Palpitations, Orthopnea, Paroxysmal Noc. Dyspnea, Edema, Lt Headedness, Other Symptoms Gastrointestinal: Denies: Nausea, Vomiting, Abdominal Pain, Diarrhea, Constipation, Melena, Hematochezia, Other Symptoms Genitourinary: Denies: Dysuria, Frequency, Incontinence, Hematuria, Retention, Other Symptoms Hematologic: Denies: Bruising, Bleeding Excessively, Petecchia, Purpura, Enlarged Lymph Nodes, Other Hematologic Endocrine: Denies: Polydipsia, Polyphagia, Polyuria, Heat Intolerance, Cold Intolerance, Other Endocrine Sx Musculoskeletal: Reports: Other Symptoms (swelling on the neck. Serial) Neurological: Denies: Weakness, Numbness, Incoordination, Change in speech, Confusion, Seizures, Other Symptoms Psych: Denies: Mood Normal, Anxiety, Depression, Memory Issues, Thoughts of Self Harm, Anger, Thoughts of Harming Other, Other Psych Physical Examination General Exam: Positive: Alert, Cooperative Eye Exam: Positive: PERRLA, Conjunctiva & lids normal ENT Exam: Positive: Atraumatic Neck Exam: Positive: Supple Chest Exam: Positive: Clear to auscultation, Normal air movement Heart Exam: Positive: Rate Normal, Normal S1, Normal S2 Abdomen Exam: Positive: Normal bowel sounds, Soft Extremity Exam: Positive: Normal pulses Skin Exam: Positive: Other skin issue (. Large swelling in which is tender to touch on the posterior aspect of neck. Also one small swelling at the left side of his back) Neuro Exam: Positive: Strength at 5/5 X4 ext, Cranial Nerves 3-12 NL Psych Exam: Positive: Mood NL, Oriented x 3 Vital Signs Vital Signs Date Time Temp Pulse Resp B/P (MAP) Pulse Ox O2 Delivery O2 Flow Rate FiO2 03/31/20 20:30 20 122/59 (80) 98 Room Air 03/31/20 20:27 92 03/31/20 19:30 98.2 Laboratory Data Labs 24H Laboratory Tests 2 03/31/20 18:32: Urine Color YELLOW, Urine Appearance CLEAR, Urine pH 5.0, Urine Specific [place] 1.006, Urine Protein NEGATIVE, Urine Glucose (UA) 3+H, Urine Ketones NEGATIVE, Urine Blood NEGATIVE, Urine Nitrite NEGATIVE, Urine Bilirubin NEGATIVE, Urine Urobilinogen 0.2, Urine Leukocyte Esterase NEGATIVE, Urine WBC (Auto) 0, Urine RBC (Auto) 0, Urine Hyaline Casts (Auto) 3, Urine Bacteria (Auto) NEGATIVE, Urine Squamous Epithelial Cells 0, Urine Mucus (Auto) SMALL, Urine Sperm (Auto) Problems (1) Acute kidney injury Status: Acute Problem Text: This is a 89 years old gentleman with past medical history of diabetes mellitus, hypertension, CK D, stage IV was sent from his PT is office with abnormal labs. Patient's vital signs are stable. Repeat BMP done shows sodium 135, potassium 4, chloride 100, bicarbonate 27, BUN 59, creatinine 2.89 Repeat magnesium is 2.1 Patient's old records checked his creatinine in September 2019 was 2.38, which has been progressively rising till today is 2.89 Patient offers no new complaints such as chest pain, shortness of breath, nausea, vomiting but complaining of only. Neck swelling Admit patient to [facility] floor with telemetry IV fluids normal saline at 70 mL per hour We will hold the patient's nephrotoxic meds, such as his diuretics, spironolactone and Lasix, also will hold patient's oral hypoglycemic agents such as glipizide, Januvia, and colchicine Dr. Ervin has been called for nephrology consultation , will await further recommendations Continue all other home meds Diet consistent carbohydrate diet Activity as tolerated DVT prophylaxis with heparin (2) Neck abscess Status: Acute Problem Text: Patient has a fluctuating tenderness with a large which looks like abscess on his posterior aspect of his neck, he had a sonogram done which shows a complex mass with sinus tract tenderness area Surgical consult with Dr. Akbar that has been called for possible I&D Patient has been started on IV Rocephin and will continue the same (3) DM2 (diabetes mellitus, type 2) Status: Chronic Problem Text: Fingerstick blood sugar every before meals and at bedtime with coverage Hold oral hypoglycemic agents secondary to deterioration of his renal function Patient will possibly require long-acting insulin before discharge on this admission (4) HTN (hypertension) Status: Chronic Problem Text: Blood pressure is under control Hold diuretics, but continue all other meds Plan / VTE VTE Prophylaxis Ordered?: Yes KEISHA VALDOVINOS MD Mar 31, 2020 21:41
[2020-03-31] MEDS ORDERED: ALBUTEROL 90 MCG/ACT 8GM HFA INHALER INH PRN (21:45)
[2020-03-31 22:15] VITALS: BP 118/62
[2020-04-01 00:36] LABS: HEMATOCRIT 32.6 % (42.0-52.0); HEMOGLOBIN 11.2 g/dl (13.5-17.5); MEAN CORPUSCULAR HEMOGLOBIN 30.7 pg (27.0-33.0); MEAN CORPUSCULAR HGB CONC 34.4 g/dl (32.0-36.5); MEAN CORPUSCULAR VOLUME 89.3 fl (80.0-96.0); PLATELET COUNT, AUTOMATED 276 10^3/uL (150-450); RED BLOOD COUNT 3.65 10^6/uL (4.30-6.10); WHITE BLOOD COUNT 10.5 10^3/uL (4.0-10.0)
[2020-04-01 00:58] LABS: ALBUMIN 3.2 GM/DL (3.2-5.2); BILIRUBIN,TOTAL 0.3 MG/DL (0.2-1.0); CALCIUM LEVEL 8.5 MG/DL (8.8-10.2); CREATININE FOR GFR 2.89 MG/DL (0.70-1.30); GLOMERULAR FILTRATION RATE 22.1 (>35); MAGNESIUM LEVEL 2.1 MG/DL (1.8-2.4); POTASSIUM SERUM 4.8 MEQ/L (3.5-5.1); TOTAL PROTEIN 6.3 GM/DL (6.4-8.2)
[2020-04-01] MEDS: MIRTAZAPINE 15 MG TAB PO SCH ×2 (01:26→20:23)
[2020-04-01] MEDS: NS 1,000 ML IV SCH ×2 (01:26→16:03)
[2020-04-01] MEDS: HumaLOG INSULIN (NovoLOG) PER UNIT SC SCH ×5 (01:27→20:24)
[2020-04-01 06:00] VITALS: BP 118/63
[2020-04-01] MEDS: TIOTROPIUM INHALER/CAPSULE (SPIRIVA) INH SCH (06:20)
[2020-04-01] MEDS: HEPARIN SOD (PORCINE) 5000UNITS/ML VIAL (J1644 PER 1000UNITS) SC SCH ×2 (08:04→20:23)
[2020-04-01] MEDS: FOLIC ACID 1 MG TAB PO SCH (08:04)
[2020-04-01] MEDS: FERROUS SULFATE 325MG TAB PO SCH (08:04)
[2020-04-01] MEDS: PRAVASTATIN 20 MG TAB PO SCH (08:04)
[2020-04-01] MEDS: CYANOCOBALAMIN 500 MCG TAB PO SCH (08:04)
[2020-04-01] MEDS: allopurinoL 100 MG TAB PO SCH (08:04)
[2020-04-01] MEDS: ASPIRIN 81 MG ENTERIC TAB PO SCH (08:04)
[2020-04-01] MEDS: VITAMIN D 1,000 INTERNATIONAL UNITS TABLET PO SCH (08:04)
[2020-04-01] MEDS: MULTIVITAMINS/MINERALS THERAP 1 TAB PO SCH (08:04)
[2020-04-01] MEDS: PANTOPRAZOLE 40MG TAB (PROTONIX) PO SCH (08:04)
[2020-04-01] MEDS: MIDODRINE 2.5 MG TAB PO SCH ×3 (08:05→16:04)
[2020-04-01 14:00] VITALS: BP 120/62
--- NOTE | 2020-04-01 20:09 | IPNPDOC ---
Date Seen The patient was seen on 04/01/20. Progress Note SUBJECTIVE: WBC improved, pain persists. Patient to go to OR for I&D of abscess/cyst on neck and back per surgery. Cr near baseline for patient. On Ceftriaxone. Denies shortness of breath, n/v/d, chest pain, fevers or chills. OBJECTIVE: VITAL SIGNS: Please see below PHYSICAL EXAMINATION: CONSTITUTIONAL: No acute distress, resting comfortably, AAO x 3 EYES: PERRLA, EOM intact HENT, MOUTH: Normocephalic, atraumatic, moist mucous membranes NECK: SUPPLE, no JVD, no lymphadenopathy, no carotid bruit CV: Regular rate and rhythm, S1S2 normal, no murmurs/rubs/gallops RESPIRATORY: Clear to auscultation bilaterally, no rales/rhonchi/wheezes GI: BS positive in 4 quadrants, soft, nontender, nondistended, no rebound or guarding, no organomegaly : Deferred MUSCULOSKELETAL: Normal ROM. No cyanosis, clubbing, swelling, joint deformity, extremity edema INTEGUMENTARY: Tender growth on base of left neck, approx 1 inch x 1 inch in diameter, warm to touch with erythema. Another growth around same diameter on left upper back, nontender and not erythematous. Otherwise, skin is Intact, no rashes NEUROLOGIC: Cranial Nerves II-XII are intact, no focal deficits PSYCHIATRIC: Mood and affect are normal CURRENT MEDICATIONS: Please see below LABORATORY DATA: Please see below IMAGING: US neck: Complex mass with a sinus tract extending to the cutaneous surface in the area palpable abnormality. Finding consistent with an abscess with or without associated mass of other etiology ASSESSMENT: 89 y/o M admitted for neck abscess requiring I&D, LUISITO on CKD. PLAN: 1. Neck abscess, abscess. Tender, red this AM. WBC slightly improved to 13K. To go to OR for I&D, c/w Ceftriaxone. Surgery following. F/u AM CBC 2. CKD Stage III-4. Cr appears to be near this patient's baseline. Nephrology consulted and following. Avoid nephrotoxic meds, await nephrology recommendations before 3. DM2 (diabetes mellitus, type 2), chronic. Stable. C/w ISS, AC/HS finger sticks, consistent carb diet. 4. HTN (hypertension), chronic and stable. C/w other meds outside of diuretics. 5. DVT px. Heparin. DISPOSITION: F/u after OR, hopeful for discharge home when medically improved. VS, I&O, 24H, Fishbone Vital Signs/I&O Vital Signs Date Time Temp Pulse Resp B/P (MAP) Pulse Ox O2 Delivery O2 Flow Rate FiO2 04/01/20 14:00 98.2 96 18 120/62 (81) 97 Room Air I&O- Last 24 Hours up to 6 AM 04/01/20 06:00 Intake Total 1265 ml Output Total 400 ml Balance 865 ml Laboratory Data 24H LABS Laboratory Tests 2 04/01/20 00:00: Coronavirus (COVID-19)(PCR) NEGATIVE 04/01/20 00:21: Nucleated Red Blood Cells % (auto) 0.0, Anion Gap 8, Glomerular Filtration Rate 22.1L, Calcium Level 8.5L, Magnesium Level 2.1, Total Bilirubin 0.3, Aspartate Amino Transf (AST/SGOT) 6L, Alanine Aminotransferase (ALT/SGPT) 15, Alkaline Phosphatase 105, Total Protein 6.3L, Albumin 3.2, Albumin/Globulin Ratio 1.0 04/01/20 06:18: Bedside Glucose (Misc Panel) 186H 04/01/20 09:05: Bedside Glucose (Misc Panel) 252H 04/01/20 12:31: Bedside Glucose (Misc Panel) 263H 04/01/20 17:58: Bedside Glucose (Misc Panel) 162H 04/01/20 19:47: Bedside Glucose (Misc Panel) 184H CBC/BMP Laboratory Tests 04/01/20 00:21 Candi Akers MD Apr 01, 2020 20:09
[2020-04-01] MEDS: cefTRIAXone SOD 1 GM in D5W MINI-BAG PLUS 50 ML IV SCH (20:23)
[2020-04-01 22:00] VITALS: BP 113/60
[2020-04-02 05:59] LABS: HEMATOCRIT 30.6 % (42.0-52.0); HEMOGLOBIN 10.4 g/dl (13.5-17.5); MEAN CORPUSCULAR HEMOGLOBIN 30.3 pg (27.0-33.0); MEAN CORPUSCULAR VOLUME 89.2 fl (80.0-96.0); PLATELET COUNT, AUTOMATED 262 10^3/uL (150-450); RED BLOOD COUNT 3.43 10^6/uL (4.30-6.10)
[2020-04-02 06:00] VITALS: BP 125/65
[2020-04-02] MEDS: NS 1,000 ML IV SCH ×2 (06:07→17:00)
[2020-04-02 06:24] LABS: ALBUMIN 2.8 GM/DL (3.2-5.2); BILIRUBIN,TOTAL 0.4 MG/DL (0.2-1.0); CALCIUM LEVEL 8.4 MG/DL (8.8-10.2); CREATININE FOR GFR 2.37 MG/DL (0.70-1.30); GLOMERULAR FILTRATION RATE 27.7 (>35); POTASSIUM SERUM 4.6 MEQ/L (3.5-5.1); TOTAL PROTEIN 5.6 GM/DL (6.4-8.2)
[2020-04-02] MEDS: HumaLOG INSULIN (NovoLOG) PER UNIT SC SCH ×4 (07:30→20:22)
[2020-04-02] MEDS: TIOTROPIUM INHALER/CAPSULE (SPIRIVA) INH SCH (07:33)
[2020-04-02] MEDS: HEPARIN SOD (PORCINE) 5000UNITS/ML VIAL (J1644 PER 1000UNITS) SC SCH ×2 (09:00→20:21)
[2020-04-02] MEDS: FOLIC ACID 1 MG TAB PO SCH (09:00)
[2020-04-02] MEDS: MULTIVITAMINS/MINERALS THERAP 1 TAB PO SCH (09:00)
[2020-04-02] MEDS: VITAMIN D 1,000 INTERNATIONAL UNITS TABLET PO SCH (09:00)
[2020-04-02] MEDS: allopurinoL 100 MG TAB PO SCH (09:01)
[2020-04-02] MEDS: FERROUS SULFATE 325MG TAB PO SCH (09:01)
[2020-04-02] MEDS: PANTOPRAZOLE 40MG TAB (PROTONIX) PO SCH (09:01)
[2020-04-02] MEDS: MIDODRINE 2.5 MG TAB PO SCH ×3 (09:01→17:00)
[2020-04-02] MEDS: ASPIRIN 81 MG ENTERIC TAB PO SCH (09:01)
[2020-04-02] MEDS: CYANOCOBALAMIN 500 MCG TAB PO SCH (09:01)
[2020-04-02] MEDS: PRAVASTATIN 20 MG TAB PO SCH (09:01)
--- NOTE | 2020-04-02 09:50 | CR ---
DATE OF CONSULTATION: 04/01/2020 REASON FOR CONSULTATION: Acute kidney injury superimposed on chronic kidney disease. HISTORY OF PRESENT ILLNESS: Mr. Diana is an 89-year-old gentleman with known history of type 2 diabetes, hypertension, chronic kidney disease, gastroesophageal reflux disease, anemia of chronic kidney disease and obstructive sleep apnea. He had labs done by his primary physician and noticed to have worsening kidney function due to which he was sent to the emergency room for possible admission. He was admitted last evening and a nephrology consultation was requested. The patient is seen this morning. He denies any vomiting, diarrhea, fever or chills prior to admission. PAST MEDICAL AND SURGICAL HISTORY: Significant for: 1. Longstanding type 2 diabetes. 2. Hypertension. 3. Gout. 4. Chronic kidney disease. 5. Vitamin B12 deficiency. 6. Gastroesophageal reflux disease. 7. Diverticulosis. 8. Prior history of pancreatitis. 9. History of peripheral vascular disease. 10. History of mild diastolic dysfunction, grade 2. 11. Anemia of chronic kidney disease. 12. History of obstructive sleep apnea. Past surgical history is significant for tooth extraction, lung nodule, prostatectomy and ORIF right ankle. MEDICATIONS: Home medications include: - allopurinol 100 mg daily - aspirin 81 mg daily - vitamin D 1000 units daily - colchicine 0.6 mg as needed for acute gout - B12 1000 mcg daily - Nexium 40 mg daily - ferrous sulfate 325 mg daily - folic acid 400 mcg daily - furosemide 40 mg daily - glipizide 10 mg daily - midodrine 2.5 mg three times a day - Remeron 15 mg at bedtime - multivitamin one tablet daily - pravastatin 20 mg daily - Januvia 50 mg daily - spironolactone 25 mg daily - Spiriva inhaler one inhalation daily ALLERGIES: The patient has no known drug allergies. PERSONAL AND SOCIAL HISTORY: The patient is a former smoker and denies any alcohol or drug use. FAMILY HISTORY: Noncontributory. His father did have diabetes and with pneumonia. Mother with diabetes and peripheral vascular disease. REVIEW OF SYSTEMS: The patient denies any fever, chills, vomiting or diarrhea prior to admission. Ears, nose and throat are unremarkable. Cardiovascular system is negative for dyspnea, chest pain or leg edema. Respiratory system negative for cough or hemoptysis. GI system is negative for vomiting, diarrhea or abdominal pain. system is negative for dysuria or hematuria. Endocrine system is significant for type 2 diabetes and hypercholesterolemia. Psychosocial system negative for depression or anxiety. Neurological system is negative for seizures or stroke. Hematological system is significant for anemia of chronic kidney disease. No history of long-term anticoagulation. PHYSICAL EXAMINATION: At the time of my visit, the patient is awake and alert, sitting in the bed with head end elevated. Temperature is 98 degrees Fahrenheit, heart rate 92 per minute and respiratory rate 18 per minute. Blood pressure 118/63 mmHg and oxygen saturation 97% on room air. His head is atraumatic. Pupils equal and reactive to light and sclerae is anicteric. Neck is supple and JVD is not visible with head end elevated at about 60 degrees. Oral mucosa is moist and without any thrush or ulcers. Heart exam reveals regular rhythm and no pericardial friction rub. Lungs sound clear to auscultation. Abdomen soft, nontender and bowel sounds are normal. There is no palpable organomegaly. Extremities have no cyanosis or clubbing. There is no peripheral edema. Neurologically he is without a focal deficit. LABORATORY DATA: Today's labs show sodium 135, potassium 4.8, CO2 27, BUN 59 and creatinine 2.89. Glucose 326 and calcium 8.5. Total protein 6.3 and albumin 3.2. Urinalysis showed 3+ glucose and no protein or blood. WBC count is 10.5, hemoglobin 11.2 and hematocrit 32.6. Platelets 276. PROBLEM: 1. Acute kidney injury superimposed on chronic kidney disease. Probably mild dehydration. I agree with holding diuretics and gently hydrate him with IV fluid. A renal ultrasound could be performed if kidney function does not improve though his history is not suggestive off obstructive uropathy. There is no evidence of acute glomerulonephritis as he does not have any proteinuria or hematuria. 2. Anemia. His anemia is mild and does not need any urgent intervention. He has known history of chronic anemia due to advanced renal failure. 3. Diastolic congestive heart failure. At present his volume status is well-compensated and I agree with holding diuretics. Probably in next 24 hours his IV fluid can be stopped as his oral intake seems to be adequate. Thank you for involving me in the care of Mr. Diana. I will follow him along with you.
[2020-04-02] MEDS ORDERED: fentaNYL 100 MCG/2 ML INJECTION (J3010) As Ordered ONE (11:38)
[2020-04-02] MEDS ORDERED: ONDANSETRON 4MG/2ML VIAL As Ordered ONE (11:38)
[2020-04-02] MEDS ORDERED: LIDOCAINE 2% 100MG/5ML SDV (FOR ANES.) As Ordered ONE (11:38)
[2020-04-02] MEDS ORDERED: propofoL 200 MG/20 ML VIAL As Ordered ONE ×4 (11:38→15:27)
--- NOTE | 2020-04-02 12:22 | IPNPDOC ---
Text Note Date of Service The patient was seen on 04/02/20. NOTE I was asked to see the patient re: cystic lump at the back of his neck. He rep orts he has had this for about 25 years and did not seem to bother him up until one month ago where he reports discomfort from the area specially when touched. Also by report of his providers looks red, infected. He came in for abnormal labs (not sure which one) but he did come in with slight leukocytosis. An US done on the area of the back of the neck shows possible abscess and some chronic tracts. He was placed on antibiotics and I was asked to evaluated him. On exam he looks comfortable At the back of the neck is a subcutaneous lump which appears tense. This encompasses an area 4x 3 cms though margins are not too well defined. Overlying skin appears normal. No noticeable thinning, necrosis or area of drainage. Not erythematous on exam. Mild tender on palpation At the right upper back is a smaller cystic subcutaneous lump about 3 x 2 cms. 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 Not sure if there is an abscess underlying the posterior neck lump but currently no drainage. I will bring him to the OR for excision/incision and drainage of the cysts on both the posterior neck and upper back area. VS,Angelae, I+O VS, Angelae, I+O Laboratory Tests 04/02/20 05:24 Vital Signs Date Time Temp Pulse Resp B/P (MAP) Pulse Ox O2 Delivery O2 Flow Rate FiO2 04/02/20 06:00 98.4 85 18 125/65 (85) 97 Room Air I&O- Last 24 Hours up to 6 AM 04/02/20 06:00 Intake Total 1940 ml Output Total 1000 ml Balance 940 ml LEONORA ESTRADA MD Apr 02, 2020 12:22
[2020-04-02] MEDS ORDERED: LIDOCAINE 1% SDV 30ML VIAL As Ordered ONE (13:32)
[2020-04-02] MEDS ORDERED: LIDOCAINE W/EPINEPHRINE 1% 20ML VIAL As Ordered ONE (13:32)
[2020-04-02] MEDS ORDERED: BUPIVACAINE HCL 0.25% 30ML VIAL As Ordered ONE (14:07)
[2020-04-02] MEDS ORDERED: ACETAMINOPHEN 1000MG 100ML IV BTL (OFIRMEV) (J0131 PER 10MG) As Ordered ONE (14:51)
[2020-04-02] MEDS ORDERED: PERCOCET 5MG/325MG TAB PO PRN (15:45)
[2020-04-02] MEDS ORDERED: LR 1,000 ML IV SCH (16:00)
[2020-04-02] MEDS ORDERED: NORCO, ANEXSIA 5/325MG TABLET (HYDROcodone/ACETAMINOPHEN) PO PRN (16:00)
[2020-04-02] MEDS ORDERED: ONDANSETRON 4MG/2ML VIAL IV PRN (16:00)
--- NOTE | 2020-04-02 16:33 | IPN ---
DATE: 04/02/2020 Mr. Diana is seen this morning on his bedside. He is feeling well and denies any dyspnea, chest pain, nausea or vomiting. He is scheduled for procedure today, possible incision and drainage or removal of the lump from his neck and upper back by Dr. Akbar. He is currently nothing by mouth and receiving IV fluids. PHYSICAL EXAMINATION: The patient is awake and alert and without any acute distress. Temperature 98.4 degrees Fahrenheit, heart rate 85 per minute and respiratory rate 18 per minute. Blood pressure 125/65 mmHg and oxygen saturation 97% on room air. Head is atraumatic. Neck supple and without JVD or thyroid enlargement. Lump on the back of neck and upper chest are essentially unchanged. Heart sounds are regular and lungs sound clear to auscultation. Abdomen soft and nontender and bowel sounds normal. Extremities without any cyanosis or clubbing. Neurologically he is awake, alert and oriented times three. Today's labs show WBC count 10.0, hemoglobin 10.4 and hematocrit 30.6. Platelets 262. Sodium 137, potassium 4.6, CO2 24, BUN 45 and creatinine 2.37. PROBLEMS: 1. Acute kidney injury superimposed on chronic kidney disease. Kidney function is gradually improving. At present he is receiving IV fluid and currently nothing by mouth for procedure later today. We will continue with IV fluids for now. 2. Hyponatremia. Sodium level is corrected now and does not need any intervention. Diuretics are currently on hold. 3. Anemia. At present his anemia is stable and does not need any intervention. 4. History of congestive heart failure. Volume status still very well compensated and diuretics will remain on hold in view of acute renal failure. The patient is tolerating IV fluid very well. We will resume his diuretics when appropriate.
[2020-04-02 16:35] VITALS: BP 122/66
--- NOTE | 2020-04-02 19:15 | IPNPDOC ---
Date Seen The patient was seen on 04/02/20. Progress Note SUBJECTIVE: OR today for I&D of right neck abscess. Denies shortness of breath, n/v/d, chest pain, fevers or chills. OBJECTIVE: VITAL SIGNS: Please see below PHYSICAL EXAMINATION: CONSTITUTIONAL: No acute distress, resting comfortably, AAO x 3 EYES: PERRLA, EOM intact HENT, MOUTH: Normocephalic, atraumatic, moist mucous membranes NECK: SUPPLE, no JVD, no lymphadenopathy, no carotid bruit. CV: Regular rate and rhythm, S1S2 normal, no murmurs/rubs/gallops RESPIRATORY: Clear to auscultation bilaterally, no rales/rhonchi/wheezes GI: BS positive in 4 quadrants, soft, nontender, nondistended, no rebound or guarding, no organomegaly : Deferred MUSCULOSKELETAL: Normal ROM. No cyanosis, clubbing, swelling, joint deformity, extremity edema INTEGUMENTARY: Tender growth on base of left neck, approx 1 inch x 1 inch in diameter, warm to touch with erythema that has slightly worsened. Another growth around same diameter on left upper back, nontender and not erythematous. Otherwise, skin is Intact, no rashes NEUROLOGIC: Cranial Nerves II-XII are intact, no focal deficits PSYCHIATRIC: Mood and affect are normal CURRENT MEDICATIONS: Please see below LABORATORY DATA: Please see below IMAGING: US neck: Complex mass with a sinus tract extending to the cutaneous surface in the area palpable abnormality. Finding consistent with an abscess with or without associated mass of other etiology ASSESSMENT: 89 y/o M admitted for neck abscess requiring I&D PLAN: 1. Neck abscess, abscess. Tender, more red this AM. WBC wnl, day 3 of Ceftriaxone. To go to OR for I&D today, f/u cultures/gram stain. Surgery following. F/u AM CBC 2. CKD Stage III-4. Cr appears to be near this patient's baseline. Nephrology consulted and following. Avoid nephrotoxic meds, await nephrology recomm endations before 3. DM2 (diabetes mellitus, type 2), chronic. Stable. C/w ISS, AC/HS finger sticks, consistent carb diet. 4. HTN (hypertension), chronic and stable. C/w other meds outside of diuretics. 5. DVT px. Heparin. DISPOSITION: F/u after OR, hopeful for discharge home when medically improved. VS, I&O, 24H, Fishbone Vital Signs/I&O Vital Signs Date Time Temp Pulse Resp B/P (MAP) Pulse Ox O2 Delivery O2 Flow Rate FiO2 04/02/20 16:35 96.9 90 19 122/66 (84) 100 Room Air 04/02/20 15:45 3 I&O- Last 24 Hours up to 6 AM 04/02/20 06:00 Intake Total 1940 ml Output Total 1000 ml Balance 940 ml Laboratory Data 24H LABS Laboratory Tests 2 04/01/20 19:47: Bedside Glucose (Misc Panel) 184H 04/02/20 05:24: Nucleated Red Blood Cells % (auto) 0.0, Anion Gap 7L, Glomerular Filtration Rate 27.7L, Calcium Level 8.4L, Total Bilirubin 0.4, Aspartate Amino Transf (AST/SGOT) 10, Alanine Aminotransferase (ALT/SGPT) 13, Alkaline Phosphatase 90, Total Protein 5.6L, Albumin 2.8L, Albumin/Globulin Ratio 1.0 04/02/20 10:13: Bedside Glucose (Misc Panel) 192H 04/02/20 16:41: Bedside Glucose (Misc Panel) 231H CBC/BMP Laboratory Tests 04/02/20 05:24 Microbiology Microbiology 04/02/20 Gram Stain - Final, Resulted 04/02/20 Wound Culture, Resulted Pending 04/02/20 Anaerobic Culture, Resulted Pending Current Medications Current Medications Medications (Trade) Dose Ordered Sig/Phoebe Route PRN Reason Start Time Stop Time Status Last Admin Dose Admin Acetaminophen (Tylenol Tab) 650 mg Q4HP PRN PO PAIN OR FEVER 03/31/20 20:00 Acetaminophen/ Hydrocodone Bitart ([place]zell, Anexsia 5/325) 1 tab ASDIRECTED PRN PO PAIN LEVEL 1-4 04/02/20 16:00 04/02/20 17:00 DC Albuterol Sulfate (Proventil, Ventolin Hfa) 2 puff QIDP PRN INH SOB/WHEEZING 03/31/20 21:45 Allopurinol (Zyloprim) 100 mg DAILY PO 04/01/20 09:00 04/02/20 09:01 Aspirin (Ecotrin) 81 mg DAILY PO 04/01/20 09:00 04/02/20 09:01 Ceftriaxone Sodium 1 gm/ Dextrose 50 ml @ 100 mls/hr Q24H IV 04/01/20 20:00 04/01/20 20:23 Cyanocobalamin (Vitamin B12) 1,000 mcg DAILY PO 04/01/20 09:00 04/02/20 09:01 Dextrose (Dextrose 50%) 25 ml ASDIRECTED PRN IV SEE LABEL COMMENTS 03/31/20 20:15 Ferrous Sulfate (Ferrous Sulfate) 325 mg DAILY PO 04/01/20 09:00 04/02/20 09:01 Folic Acid (Folic Acid) 1 mg DAILY PO 04/01/20 09:00 04/02/20 09:00 Glucagon (Glucagon) 1 mg ASDIRECTED PRN SC SEE LABEL COMMENTS 03/31/20 20:15 Glucose (Glucose) 16 GM ASDIRECTED PRN PO SEE LABEL COMMENTS 03/31/20 20:15 Heparin Sodium (Porcine) (Heparin) 5,000 units Q12H SC 04/01/20 09:00 04/02/20 09:00 Home Med (Med Rec Complete!) ASDIRECTED XX 03/31/20 21:00 03/31/20 20:52 DC Insulin Human Lispro (HumaLOG INSULIN) SEE PROTOCOL TABLE AC SC 04/01/20 07:30 04/02/20 17:35 Insulin Human Lispro (HumaLOG INSULIN) SEE PROTOCOL TABLE QHS SC 03/31/20 21:00 04/01/20 01:27 Lactated Ringer's 1,000 ml @ 50 mls/hr Q20H IV 04/02/20 16:00 04/02/20 17:00 DC Midodrine (Proamatine) 2.5 mg 0800,1200,1600 PO 04/01/20 08:00 04/02/20 17:00 Mirtazapine (Remeron) 15 mg QHS PO 03/31/20 21:00 04/01/20 20:23 Multivitamins (Theragram-M) 1 tab DAILY PO 04/01/20 09:00 04/02/20 09:00 Ondansetron HCl (ZOFRAN INJection) 4 mg Q4HP PRN IV NAUSEA OR VOMITING 04/02/20 16:00 04/02/20 17:00 DC Oxycodone/ Acetaminophen (Percocet 5mg/ 325mg Tablet) 1 tab Q6HP PRN PO MILD/MODERATE PAIN (PS 1-7) 04/02/20 15:45 Pantoprazole Sodium (Protonix) 40 mg DAILY PO 04/01/20 09:00 04/02/20 09:01 Pravastatin Sodium (Pravachol) 20 mg DAILY PO 04/01/20 09:00 04/02/20 09:01 Sodium Chloride 1,000 ml @ 70 mls/hr [id number] IV 03/31/20 20:15 04/02/20 17:00 Sodium Chloride 1,000 ml @ 125 mls/hr Q8H IV 03/31/20 19:15 04/01/20 00:20 DC 03/31/20 19:56 Tiotropium [place] (Spiriva Handihaler) 1 inhalation DAILY@08 INH 04/01/20 08:00 04/02/20 07:33 Vitamin D (Vitamin D) 1,000 units DAILY PO 04/01/20 09:00 04/02/20 09:00 Allergies Coded Allergies: No Known Allergies (Unverified , 06/21/18) Candi Akers MD Apr 02, 2020 19:15
[2020-04-02] MEDS: cefTRIAXone SOD 1 GM in D5W MINI-BAG PLUS 50 ML IV SCH (20:21)
[2020-04-02] MEDS: MIRTAZAPINE 15 MG TAB PO SCH (20:21)
[2020-04-02 22:00] VITALS: BP 104/56
[2020-04-03 05:43] LABS: HEMATOCRIT 30.2 % (42.0-52.0); MEAN CORPUSCULAR HEMOGLOBIN 29.9 pg (27.0-33.0); MEAN CORPUSCULAR HGB CONC 33.1 g/dl (32.0-36.5); MEAN CORPUSCULAR VOLUME 90.4 fl (80.0-96.0); PLATELET COUNT, AUTOMATED 242 10^3/uL (150-450); RED BLOOD COUNT 3.34 10^6/uL (4.30-6.10); WHITE BLOOD COUNT 8.8 10^3/uL (4.0-10.0)
[2020-04-03 06:00] VITALS: BP 131/65
[2020-04-03 06:06] LABS: ALBUMIN 2.7 GM/DL (3.2-5.2); BILIRUBIN,TOTAL 0.4 MG/DL (0.2-1.0); CALCIUM LEVEL 8.3 MG/DL (8.8-10.2); CREATININE FOR GFR 2.24 MG/DL (0.70-1.30); GLOMERULAR FILTRATION RATE 29.6 (>35); POTASSIUM SERUM 4.7 MEQ/L (3.5-5.1); TOTAL PROTEIN 5.4 GM/DL (6.4-8.2)
[2020-04-03] MEDS: TIOTROPIUM INHALER/CAPSULE (SPIRIVA) INH SCH (07:17)
[2020-04-03] MEDS: NS 1,000 ML IV SCH (07:24)
[2020-04-03] MEDS: HumaLOG INSULIN (NovoLOG) PER UNIT SC SCH ×2 (08:27→12:39)
[2020-04-03] MEDS: HEPARIN SOD (PORCINE) 5000UNITS/ML VIAL (J1644 PER 1000UNITS) SC SCH (08:27)
[2020-04-03] MEDS: MIDODRINE 2.5 MG TAB PO SCH ×2 (08:28→12:39)
[2020-04-03] MEDS: MULTIVITAMINS/MINERALS THERAP 1 TAB PO SCH (08:28)
[2020-04-03] MEDS: FOLIC ACID 1 MG TAB PO SCH (08:28)
[2020-04-03] MEDS: FERROUS SULFATE 325MG TAB PO SCH (08:28)
[2020-04-03] MEDS: PRAVASTATIN 20 MG TAB PO SCH (08:28)
[2020-04-03] MEDS: PANTOPRAZOLE 40MG TAB (PROTONIX) PO SCH (08:28)
[2020-04-03] MEDS: allopurinoL 100 MG TAB PO SCH (08:28)
[2020-04-03] MEDS: VITAMIN D 1,000 INTERNATIONAL UNITS TABLET PO SCH (08:28)
[2020-04-03] MEDS: CYANOCOBALAMIN 500 MCG TAB PO SCH (08:28)
[2020-04-03] MEDS: ASPIRIN 81 MG ENTERIC TAB PO SCH (08:28)
[2020-04-03] MEDS ORDERED: KEFL500C17 PO (10:28)
--- NOTE | 2020-04-03 15:27 | IPN ---
DATE: 04/03/2020 Mr. Diana was seen and examined this morning during bedside rounds. He was sitting up comfortably in his bed, was appropriately answering questions. He went for an incision and drainage (I and D) for both of his sebaceous cysts on his neck yesterday by Dr. Akbar which he tolerated very well. He really has no complaints today and would like to know when he is going home. He was last seen by nephrology about a week and a half ago and will have a followup appointment upon discharge. He is tolerating his food this morning with no problem, no nausea, no vomiting, no fevers, no chills. No overnight events were reported by nursing. PHYSICAL EXAMINATION: Vital signs: Temperature 97.4, pulse 84, respirations 18, blood pressure 131/65 (87), pulse oximetry 98% on room air. Intake total 1220, output total 1370, balance of -50 mL, no weight was taken this morning. General: This is a very pleasant, 89-year-old male who is sitting up in the bed with no acute distress, appropriately answering questions. HEENT: Atraumatic, normocephalic. No jugular venous distention (JVD). Trachea is midline. Bandages over the posterior neck and the lateral left side of the neck. No discharge or tenderness or erythema noted. No increased warmth appreciated around the bandage. Patient has no complaints. Heart: Regular rate and rhythm. No audible murmurs, rubs, or gallops. Lungs: Clear to auscultation bilaterally. No audible wheezing, rhonchi, rales. Abdomen: Soft, nontender. Positive bowel sounds in all four quadrants. Extremities: No lower extremity edema. Neurologic: Alert and oriented times three. No focal deficits noted. Psychiatric: Appropriate. LABORATORIES: Hematology: WBC 8.8, hemoglobin 10.0, hematocrit 30.2, platelets 242. Chemistry: Sodium 137, potassium 4.7, chloride 108, carbon dioxide 24, anion gap 5, BUN 34, creatinine 2.24, fasting glucose 216, calcium 8.3, ALT 11, total protein 5.4. No new imaging. ASSESSMENT AND PLAN: 1. Acute kidney injury superimposed on chronic kidney disease. Kidney function continues to improve. Tolerated IV fluids, will discontinue that this morning for he is tolerating good by mouth intake. From a nephrology standpoint, his kidney function has improved and he can be discharged to followup with us outpatient. 2. Hyponatremia, resolved. 3. Anemia, stable. No urgent intervention. 4. History of congestive heart failure. Volume status is euvolemic. At this current time, will continue to hold his diuretics because his kidney function has not returned entirely to baseline and will monitor his volume status. He will followup with nephrology outpatient and at that time will consider when we are going to restart the diuretics. My faculty preceptor for this patient encounter was physically present during the encounter and was fully available. All aspects of the patient interview, examination, medical decision making process, and medical care plan development were reviewed and approved by the faculty preceptor. The faculty preceptor is aware and concurs with the plan as stated in the body of this note and will attest to such by his cosignature.
--- NOTE | 2020-04-03 18:04 | DS.PDOC ---
Discharge Summary General Date of Admission Mar 31, 2020 at 19:59 Date of Discharge 04/03/20 Attending Physician: Candi Akers MD Discharge Summary HISTORY OF PRESENT ILLNESS: This is a 89 years old white male with past medical history of diabetes mellitus type 2, GERD, vitamin B12 deficiency, hypertension and kidney disease, anemia of chronic disease, chronic venous insufficiency, chronic kidney disease stage IV, obstructive sleep apnea, was sent to the ED by her PA with abnormal labs. Patient offers no complaints of chest pain, shortness of breath, nausea, vomiting, diarrhea. Patient's only complaint is he has a swelling on his neck which has been increasing in size since last few months now is red and tender to touch, no discharge. Patient was admitted for neck abscess requiring I&D by surgery. HOSPITAL COURSE: The patient was continued on IV ceftriaxone and surgery was consult to the patient the bedside. They took the patient to the OR on 04/02/2020 and sent cu ltures. There was a high suspicion for sebaceous cyst versus abscess of the neck. There was also another large soft mass on the right upper back questionable for sebaceous cyst. Cultures sent from I&D grew few RBCs, few gram- positive cocci in pairs. Official culture was still pending. WBC had come down to within normal limits by 04/03/2020. The case was discussed with Dr Akbar (general surgery) who recommended discharge on by mouth Keflex and follow-up in his clinic within 1 week. There was an episode of increased bleeding to the incision site on the right upper back which stopped after further assessment by surgery. At the time of discharge the patient denied any increased pain of the neck or back, fevers, chills, nausea, vomiting, shortness of breath. REVIEW OF SYSTEMS: Negative except for what is mentioned above PAST MEDICAL HISTORY: Diabetes mellitus type 2, GERD, vitamin B-12 deficiency, diverticulosis, hypertension, history of pancreatitis, peripheral vascular disease, chronic kidney disease stage IV, mild diastolic dysfunction, grade 2. Anemia of chronic disease, chronic venous insufficiency, obstructive sleep apnea, and diverticulosis PAST SURGICAL HISTORY: ORIF right ankle, prostatectomy, lung nodule, tooth extraction FAMILY HISTORY: Father with diabetes and pneumonia. Mother with diabetes and PVD SOCIAL HISTORY: * Smoker: former Smoker Alcohol: Denies Drugs: denies ALLERGIES: Please see below. DISCHARGE MEDICATIONS: Please see below. PHYSICAL EXAMINATION: VITAL SIGNS: Please see below CONSTITUTIONAL: No acute distress, resting comfortably, AAO x 3 EYES: PERRLA, EOM intact HENT, MOUTH: Normocephalic, atraumatic, moist mucous membranes NECK: SUPPLE, no JVD, no lymphadenopathy, no carotid bruit. CV: Regular rate and rhythm, S1S2 normal, no murmurs/rubs/gallops RESPIRATORY: Clear to auscultation bilaterally, no rales/rhonchi/wheezes GI: BS positive in 4 quadrants, soft, nontender, nondistended, no rebound or guarding, no organomegaly : Deferred MUSCULOSKELETAL: Normal ROM. No cyanosis, clubbing, swelling, joint deformity, extremity edema INTEGUMENTARY: incision appears clean left neck and left upper back, no warmth eythema or increased bleeding. NEUROLOGIC: Cranial Nerves II-XII are intact, no focal deficits PSYCHIATRIC: Mood and affect are normal CURRENT MEDICATIONS: Please see below LABORATORY DATA: Please see below IMAGING: US neck: Complex mass with a sinus tract extending to the cutaneous surface in the area palpable abnormality. Finding consistent with an abscess with or without associated mass of other etiology ASSESSMENT: 89 y/o M admitted for neck abscess s/p I&D. PLAN: 1. Neck/back abscess vs. sebaceous cyst s/p excision, drainage. WBC now wnl, cultures are pending. Patient to f/u with Dr. Akbar in clinic for official results of culture. C/w keflex PO BID x 7 days. 2. CKD Stage III-4. Cr appears to be near this patient's baseline. Nephrology consulted and recommending to follow up in clinic. Avoid nephrotoxic meds. 3. DM2 (diabetes mellitus, type 2), chronic. C/w home medications. 4. HTN (hypertension), chronic and stable. C/w home medications. DISPOSITION: F/u with PCP and general surgery after discharge. TOTAL TIME SPENT ON DISCHARGE: Greater than 30 mins Vital Signs/I&Os Vital Signs Date Time Temp Pulse Resp B/P (MAP) Pulse Ox O2 Delivery O2 Flow Rate FiO2 04/03/20 06:00 97.4 84 18 131/65 (87) 98 Room Air 04/02/20 15:45 3 I&O- Last 24 Hours up to 6 AM 04/03/20 06:00 Intake Total 1820 ml Output Total 1270 ml Balance 550 ml Laboratory Data Labs 24H Laboratory Tests 2 04/02/20 19:53: Bedside Glucose (Misc Panel) 296H 04/03/20 05:19: Nucleated Red Blood Cells % (auto) 0.0, Anion Gap 5L, Glomerular Filtration Rate 29.6L, Calcium Level 8.3L, Total Bilirubin 0.4, Aspartate Amino Transf (AST/SGOT) 11, Alanine Aminotransferase (ALT/SGPT) 11L, Alkaline Phosphatase 84, Total Protein 5.4L, Albumin 2.7L, Albumin/Globulin Ratio 1.0 04/03/20 11:11: Bedside Glucose (Misc Panel) 238H CBC/BMP Laboratory Tests 04/03/20 05:19 FSBS Laboratory Tests Test 04/02/20 19:53 04/03/20 11:11 Range/Units Bedside Glucose (Misc Panel) 296 238 83-110 MG/DL Microbiology Microbiology 04/02/20 Gram Stain - Final, Resulted 04/02/20 Wound Culture, Resulted Pending 04/02/20 Anaerobic Culture, Resulted Pending Discharge Medications Scheduled Allopurinol (Allopurinol) 100 Mg Tablet, 100 MG PO DAILY, (Reported) Aspirin (Aspirin EC) 81 Mg Tab, 81 MG PO DAILY, (Reported) Cephalexin (Keflex) 500 Mg Capsule, 500 MG PO BID Cholecalciferol (Vitamin D3) (Vitamin D3) 1,000 Unit Tablet, 1,000 UNITS PO DAILY, (Reported) Colchicine (Colchicine) 0.6 Mg Tablet, 0.3 MG PO Q2D, (Reported) TAKES ON EVEN DAYS Cyanocobalamin (Vitamin B-12) (Vitamin B-12) 1,000 Mcg Tab, 1,000 MCG PO DAILY, (Reported) Esomeprazole Magnesium (Nexium) 40 Mg Cap, 40 MG PO DAILY, (Reported) Ferrous Sulfate (Iron) 325 Mg Tablet, 325 MG PO DAILY, (Reported) Folic Acid (Folic Acid) 0.4 Mg Tablet, 400 MCG PO DAILY, (Reported) Furosemide (Furosemide) 40 Mg Tablet, 60 MG PO DAILY, (Reported) Glipizide (Glipizide) 10 Mg Tab, 10 MG PO DAILY, (Reported) Midodrine HCl (Midodrine HCl) 2.5 Mg Tablet, 2.5 MG PO TID, (Reported) Mirtazapine (Remeron) 15 Mg Tablet, 15 MG PO QHS, (Reported) Multivit-Min/FA/Lycopen/Lutein (Centrum Silver Tablet) 1 Each Tablet, 1 TAB PO DAILY, (Reported) Pravastatin Sodium (Pravastatin Sodium) 20 Mg Tab, 20 MG PO DAILY, (Reported) Sitagliptin (Januvia) 50 Mg Tab, 50 MG PO DAILY, (Reported) Spironolactone (Spironolactone) 25 Mg Tab, 25 MG PO DAILY, (Reported) Tiotropium [place] (Spiriva Respimat) 4 Gm Mist.inhal, 1 PUFF INH DAILY, (Reported) Scheduled PRN Albuterol Sulfate (Ventolin Hfa) 18 Gm Hfa.aer.ad, 2 PUFF INH QID PRN for S OB/WHEEZING, (Reported) Allergies Coded Allergies: No Known Allergies (Unverified , 06/21/18) Candi Akers MD Apr 03, 2020 18:04
--- NOTE | 2020-04-15 03:09 | ROOPDOC ---
[facility] Report Of Operation Report of Operation DATE OF PROCEDURE: 04/02/20 PREPROCEDURE DIAGNOSES: sebaceous cyst posterior neck, right upper back. POSTPROCEDURE DIAGNOSES: same. PROCEDURE: Excision of sebaceous cyst posterior neck and right upper back. SURGEON: Cesar Akbar MD SENIOR ACCOUNT MANAGER: ANESTHESIA: monitored anesthesia care with local anesthesia. ESTIMATED BLOOD LOSS: Approximately 20 mL. COMPLICATIONS: none. REMARKS: Patient is an 89-year-old male admitted to the hospital and was complaining of pain from a long-standing cyst at the back of his neck. He also has a second sebaceous cyst in the right upper back.. DESCRIPTION OF PROCEDURE: Patient was brought to the operating room, placed prone on the procedure table with paddings placed. Compression boots placed on both lower extremities were DVT prophylaxis. Monitored anesthesia care then started with IV sedation. He was given Ancef 2 g IV for wound prophylaxis. The back of his neck and his upper back was prepped and draped in usual sterile fashion.We paused for a surgical timeout using both pre-incision safety checklist to verify correct patient, procedure site and additional clinical information prior to beginning the procedure On examination he has roughly about a 3 x 3 cm slightly hardened subcutaneous cystic nodularity slightly to the right at the posterior neck area and almost same size but softer cystic nodularity at the right upper back area. There is no active drainage nor any erythema though on my prior exam the posterior neck sebaceous cyst has some slight tenderness. There is some liquid component to this according to the ultrasound and suspicion for possible abscess.. The skin and subcutaneous veins tissue around the neck area was infiltrated with local anesthesia. I used a mixture of 1% lidocaine and 1/4% Marcaine. Roughly about a 5 cm transverse incision was then created on top of this nodularity. There was some scaring of the skin related to the length of time that the sebaceous cyst has been in prior drainage and inflammation. This was carefully deepened through to the subcutaneous tissue. I took a cruciate piece of skin to create some space. The capsule was encountered and they circumferentially got around the capsule until I reached the posterior and while putting some traction on the skin the cyst did rupture with drainage of mucoid and mixed solid whitish material consistent with a sebaceous cyst. I continued dissecting the capsule and part of the scarred and inflamed subcutaneous tissues fissure at the posterior side was taken to the level of the investing fascia with at some areas due to the involvement scarring the fascia was taken with the capsule. After removal of the whole cyst capsule the wound was irrigated. Hemostasis was performed with Bovie cautery. I left Damian at the wound bed and temporarily packed the wound with a worked on the right upper back cyst. In the same fashion the right upper back cyst was excised. A cruciate skin incision was created and a piece of skin was removed to create some space for me to work. I circumferentially came around the capsule and the capsule was removed intact. This came off much easier than the posterior neck cyst. Again due to the length of time the cyst has been there, there was some scarring involved. It took some subcutaneous tissue with the capsule especially at its posterior location. Again hemostasis was performed with Bovie cautery and Damian was left in place. The incision was then closed in layers with 3-0 Vicryl at the subcutaneous space and dermis and 4-0 Monocryl placed subcuticular to close the skin. Dermabond was then used for dressing. I then came back on the posterior neck excision site and inspected the cavity and there was some persistent oozing at the upper lateral portion of the flap and again this was cauterized and Damian was again placed and temporarily packed. After making sure that there is adequate hemostasis this was then closed in layers with 3-0 Vicryl at the subcutaneous space and dermis and 4-0 Monocryl to close the skin. Again there while was then used to cover the incision. I also placed some compression dressing once a day 1 was dry on the posterior neck area to ensure there continued to be good hemostasis. Patient tolerated the procedure well and was promptly awakened and brought to the recovery room in stable condition. CESAR AKBAR MD Apr 15, 2020 03:09
== END 2020-04-03 14:35 | disposition home health service (06) | DRG 571 ==
LOC: M ED 15:57 → M ED INP 19:59 → ENRESERV 20:38 → M MSPAV 22:15 → M ED 22:21
PROVIDERS: ADMIT Internal Medicine; ATTEND Internal Medicine
PROC: 0JB40ZZ Excision of Right Neck Subcutaneous Tissue and Fascia, Open Approach (ICD-10-PCS; 2020-04-02)
PROC: 0JB70ZZ Excision of Back Subcutaneous Tissue and Fascia, Open Approach (ICD-10-PCS; principal; 2020-04-02 12:00)
DX: L72.3 Sebaceous cyst (principal); N17.9 Acute kidney failure, unspecified; I50.32 Chronic diastolic (congestive) heart failure; I13.0 Hypertensive heart and chronic kidney disease with heart failure and stage 1 through stage 4 chronic kidney disease, or unspecified chronic kidney disease; E87.1 Hypo-osmolality and hyponatremia; N18.4 Chronic kidney disease, stage 4 (severe); L02.11 Cutaneous abscess of neck; E86.0 Dehydration; M10.39 Gout due to renal impairment, multiple sites; E78.00 Pure hypercholesterolemia, unspecified; L72.0 Epidermal cyst; E11.22 Type 2 diabetes mellitus with diabetic chronic kidney disease; K21.9 Gastro-esophageal reflux disease without esophagitis; E53.8 Deficiency of other specified B group vitamins; D63.1 Anemia in chronic kidney disease; I87.2 Venous insufficiency (chronic) (peripheral); G47.33 Obstructive sleep apnea (adult) (pediatric); Z79.82 Long term (current) use of aspirin; Z79.84 Long term (current) use of oral hypoglycemic drugs; Z79.899 Other long term (current) drug therapy; E11.51 Type 2 diabetes mellitus with diabetic peripheral angiopathy without gangrene; Z87.891 Personal history of nicotine dependence; Z11.59 Encounter for screening for other viral diseases

== ENCOUNTER → 2020-03-31 | Outpatient (REF) | payer MEDICARE, OTHER ==
[2020-03-31 14:45] LABS: BASO # 0.1 10^3/uL (0.0-0.2); EOS # 0.4 10^3/uL (0.0-0.5); HEMATOCRIT 35.4 % (42.0-52.0); HEMOGLOBIN 11.8 g/dl (13.5-17.5); LYMPH # 1.6 10^3/uL (1.5-5.0); LYMPH % 12.3 % (24.0-44.0); MEAN CORPUSCULAR HEMOGLOBIN 30.2 pg (27.0-33.0); MEAN CORPUSCULAR HGB CONC 33.3 g/dl (32.0-36.5); MEAN CORPUSCULAR VOLUME 90.5 fl (80.0-96.0); MONO % 7.4 % (0.0-5.0); NEUTROPHILS # 9.9 10^3/uL (1.5-8.5); NEUTROPHILS % 74.3 % (36.0-66.0); PLATELET COUNT, AUTOMATED 286 10^3/uL (150-450); RED BLOOD COUNT 3.91 10^6/uL (4.30-6.10); WHITE BLOOD COUNT 13.3 10^3/uL (4.0-10.0)
[2020-03-31 14:56] LABS: ALBUMIN 3.3 GM/DL (3.2-5.2); BILIRUBIN,TOTAL 0.3 MG/DL (0.2-1.0); CALCIUM LEVEL 8.8 MG/DL (8.8-10.2); CREATININE FOR GFR 3.37 MG/DL (0.70-1.30); GLOMERULAR FILTRATION RATE 18.5 (>35); POTASSIUM SERUM 5.3 MEQ/L (3.5-5.1); TOTAL PROTEIN 6.7 GM/DL (6.4-8.2)
== END ==
LOC: M SFHCADAM 09:58
PROVIDERS: ATTEND Physician Assistant Medical
DX: M10.39 Gout due to renal impairment, multiple sites (principal)

== ENCOUNTER → 2020-04-20 | Outpatient (REF) | payer MEDICARE, OTHER ==
[~2020-04-20] MED LIST changes: +CENT1TAB PO; +CEPH25SS PO; +FOLI400T PO; +IRON65TA2 PO; +KEFL250C11 PO; +KEFL500C17 PO; +OMEP40CA97 PO; +REME15TA PO; +SPIR12.9 INH; +VENTAER INH; +VITAD1000T PO
[2020-04-20 13:47] LABS: BASO # 0.1 10^3/uL (0.0-0.2); BASO % 1.5 % (0.0-1.0); EOS # 0.6 10^3/uL (0.0-0.5); EOS % 7.2 % (0.0-3.0); HEMATOCRIT 32.8 % (42.0-52.0); HEMOGLOBIN 10.9 g/dl (13.5-17.5); LYMPH # 1.5 10^3/uL (1.5-5.0); LYMPH % 18.5 % (24.0-44.0); MEAN CORPUSCULAR HEMOGLOBIN 30.5 pg (27.0-33.0); MEAN CORPUSCULAR HGB CONC 33.2 g/dl (32.0-36.5); MEAN CORPUSCULAR VOLUME 91.9 fl (80.0-96.0); MONO # 0.8 10^3/uL (0.0-0.8); MONO % 10.5 % (0.0-5.0); NEUTROPHILS # 4.8 10^3/uL (1.5-8.5); NEUTROPHILS % 60.1 % (36.0-66.0); PLATELET COUNT, AUTOMATED 289 10^3/uL (150-450); RED BLOOD COUNT 3.57 10^6/uL (4.30-6.10)
[2020-04-20 14:21] LABS: ALBUMIN 3.4 GM/DL (3.2-5.2); BILIRUBIN,TOTAL 0.4 MG/DL (0.2-1.0); CALCIUM LEVEL 8.9 MG/DL (8.8-10.2); CREATININE FOR GFR 3.19 MG/DL (0.70-1.30); GLOMERULAR FILTRATION RATE 19.7 (>35); POTASSIUM SERUM 5.1 MEQ/L (3.5-5.1); TOTAL PROTEIN 6.6 GM/DL (6.4-8.2); URIC ACID 6.9 MG/DL (3.5-7.2)
== END ==
LOC: M LABDRWAD 12:33
PROVIDERS: ATTEND Internal Medicine
DX: M10.39 Gout due to renal impairment, multiple sites (principal)

== ENCOUNTER → 2020-04-30 | Outpatient (REF) | payer MEDICARE, OTHER ==
[~2020-04-30] MED LIST changes: +AMLO1TAB24 PO; -AMLO5TAB6 PO; +D31000TA2 PO; -VITAD1000T PO
[2020-04-30 12:48] LABS: APPEARANCE, URINE HAZY (CLEAR); BACTERIA, URINE AUTO NEGATIVE (NEGATIVE); BILIRUBIN, URINE AUTO NEGATIVE (NEGATIVE); BLOOD, URINE BLOOD NEGATIVE (NEGATIVE); COLOR, URINE YELLOW (YELLOW); GLUCOSE, URINE (UA) AUTO 1+ mg/dL (NEGATIVE); KETONE, URINE AUTO NEGATIVE (NEGATIVE); LEUKOCYTE ESTERASE, URINE AUTO NEGATIVE (NEGATIVE); MUCUS, URINE SMALL (NEGATIVE); NITRITE, URINE AUTO NEGATIVE (NEGATIVE); PROTEIN, URINE AUTO NEGATIVE (NEGATIVE); RBC, URINE AUTO 0 /HPF (0-3); SPECIFIC GRAVITY URINE AUTO 1.011 (1.002-1.035); SQUAMOUS EPITHELIAL CELL UR AU 0 /HPF (0-6); UROBILINOGEN, URINE AUTO 0.2 mg/dL (0.0-2.0); WBC, URINE AUTO 0 /HPF (0-3)
[2020-04-30 12:55] LABS: BASO # 0.1 10^3/uL (0.0-0.2); BASO % 1.1 % (0.0-1.0); EOS # 0.6 10^3/uL (0.0-0.5); EOS % 5.8 % (0.0-3.0); HEMATOCRIT 33.1 % (42.0-52.0); HEMOGLOBIN 11.1 g/dl (13.5-17.5); LYMPH # 1.9 10^3/uL (1.5-5.0); LYMPH % 18.7 % (24.0-44.0); MEAN CORPUSCULAR HEMOGLOBIN 30.6 pg (27.0-33.0); MEAN CORPUSCULAR HGB CONC 33.5 g/dl (32.0-36.5); MEAN CORPUSCULAR VOLUME 91.2 fl (80.0-96.0); MONO % 10.2 % (0.0-5.0); NEUTROPHILS # 6.2 10^3/uL (1.5-8.5); NEUTROPHILS % 62.5 % (36.0-66.0); PLATELET COUNT, AUTOMATED 280 10^3/uL (150-450); RED BLOOD COUNT 3.63 10^6/uL (4.30-6.10); WHITE BLOOD COUNT 9.9 10^3/uL (4.0-10.0)
[2020-04-30 13:43] LABS: ALBUMIN 3.7 GM/DL (3.2-5.2); ALT/SGPT 16 U/L (12-78); BILIRUBIN,TOTAL 0.4 MG/DL (0.2-1.0); BLOOD UREA NITROGEN 60 MG/DL (7-18); CALCIUM LEVEL 8.9 MG/DL (8.8-10.2); CARBON DIOXIDE LEVEL 22 MEQ/L (21-32); CHLORIDE LEVEL 102 MEQ/L (98-107); CHOLESTEROL LEVEL 124 MG/DL (<200); CHOLESTEROL RISK RATIO 3.647 (<5); CREATININE FOR GFR 2.74 MG/DL (0.70-1.30); FOLATE > 24.0 NG/ML; GLOMERULAR FILTRATION RATE 23.5 (>35); GLUCOSE, FASTING 264 MG/DL (70-100); HDL CHOLESTEROL 34 MG/DL (>40); LDL CHOLESTEROL 10 MG/DL (<100); NON-HDL-C 90 MG/DL; POTASSIUM SERUM 4.6 MEQ/L (3.5-5.1); SODIUM LEVEL 132 MEQ/L (136-145); TOTAL 25(OH) VITAMIN D 50.7 NG/ML (30.0-100.0); TOTAL PROTEIN 6.9 GM/DL (6.4-8.2); TRIGLYCERIDES LEVEL 398 MG/DL (<150); URIC ACID 7.2 MG/DL (3.5-7.2); VITAMIN B12 LEVEL 1151 PG/ML
[2020-04-30 13:48] LABS: HEMOGLOBIN A1c 10.3 %
== END ==
LOC: M SFHCADAM 10:53
PROVIDERS: ATTEND Physician Assistant Medical
DX: M10.39 Gout due to renal impairment, multiple sites (principal); E11.9 Type 2 diabetes mellitus without complications; E53.8 Deficiency of other specified B group vitamins; N18.4 Chronic kidney disease, stage 4 (severe)
CPT/HCPCS: 80053; 80061; 81001; 82306; 82607; 82746; 83036; 84443; 84550; 85025; G0463

== ENCOUNTER → 2020-05-16 | Outpatient (REF) | payer MEDICARE, OTHER ==
[~2020-05-16] MED LIST changes: -AMLO1TAB24 PO; +AMLO5TAB6 PO; -D31000TA2 PO; +VITAD1000T PO
== END ==
LOC: M LAB REF 17:03
PROVIDERS: ATTEND Physician Assistant
DX: N39.0 Urinary tract infection, site not specified (principal)

== ENCOUNTER → 2020-05-16 | Outpatient (CLI) | payer MEDICARE, OTHER ==
[2020-05-16 18:19] LABS: BASO # 0.1 10^3/uL (0.0-0.2); BASO % 0.8 % (0.0-1.0); EOS # 0.4 10^3/uL (0.0-0.5); EOS % 3.6 % (0.0-3.0); HEMATOCRIT 34.7 % (42.0-52.0); HEMOGLOBIN 11.7 g/dl (13.5-17.5); LYMPH # 1.3 10^3/uL (1.5-5.0); LYMPH % 11.1 % (24.0-44.0); MEAN CORPUSCULAR HEMOGLOBIN 30.8 pg (27.0-33.0); MEAN CORPUSCULAR HGB CONC 33.7 g/dl (32.0-36.5); MEAN CORPUSCULAR VOLUME 91.3 fl (80.0-96.0); MONO % 8.3 % (0.0-5.0); NEUTROPHILS # 8.6 10^3/uL (1.5-8.5); NEUTROPHILS % 74.8 % (36.0-66.0); PLATELET COUNT, AUTOMATED 285 10^3/uL (150-450); WHITE BLOOD COUNT 11.5 10^3/uL (4.0-10.0)
[2020-05-16 18:28] LABS: CREATININE FOR GFR 2.77 MG/DL (0.70-1.30); GLOMERULAR FILTRATION RATE 23.2 (>35); POTASSIUM SERUM 4.7 MEQ/L (3.5-5.1)
== END ==
LOC: M WUC 12:33
PROVIDERS: ATTEND Physician Assistant
DX: N39.0 Urinary tract infection, site not specified (principal); R31.9 Hematuria, unspecified

== ENCOUNTER → 2020-08-20 | Outpatient (REF) | payer MEDICARE, OTHER ==
[~2020-08-20] MED LIST changes: +AMLO1TAB24 PO; -AMLO5TAB6 PO; +D31000TA2 PO; -VITAD1000T PO
[2020-08-20 17:32] LABS: ALBUMIN 3.6 GM/DL (3.2-5.2); BILIRUBIN,TOTAL 0.4 MG/DL (0.2-1.0); CALCIUM LEVEL 9.7 MG/DL (8.8-10.2); CREATININE FOR GFR 2.84 MG/DL (0.70-1.30); GLOMERULAR FILTRATION RATE 22.5 (>35); TOTAL PROTEIN 7.1 GM/DL (6.4-8.2); URIC ACID 5.4 MG/DL (3.5-7.2)
== END ==
LOC: M LABDRWAD 16:23
PROVIDERS: ATTEND Internal Medicine
DX: M10.39 Gout due to renal impairment, multiple sites (principal)

== ENCOUNTER → 2020-08-21 | Outpatient (REF) | payer MEDICARE, OTHER ==
[2020-08-21 19:13] LABS: HEMOGLOBIN A1c 13.2 %
== END ==
LOC: M SFHCADAM 11:48
PROVIDERS: ATTEND Physician Assistant Medical
DX: E11.9 Type 2 diabetes mellitus without complications (principal)
CPT/HCPCS: 83036; G0463

== ENCOUNTER → 2020-12-15 | Outpatient (REF) | payer MEDICARE, OTHER ==
[~2020-12-15] MED LIST changes: +COLC0.6T47 PO; -COLC1TAB13 PO; +MIRT-62 PO; -REME15TA PO
[2020-12-15 12:24] LABS: BASO # 0.1 10^3/uL (0.0-0.2); BASO % 0.4 % (0.0-1.0); EOS # 0.3 10^3/uL (0.0-0.5); EOS % 2.4 % (0.0-3.0); HEMATOCRIT 33.6 % (42.0-52.0); HEMOGLOBIN 11.1 g/dl (13.5-17.5); LYMPH # 1.8 10^3/uL (1.5-5.0); LYMPH % 13.1 % (24.0-44.0); MEAN CORPUSCULAR HEMOGLOBIN 30.2 pg (27.0-33.0); MEAN CORPUSCULAR VOLUME 91.3 fl (80.0-96.0); MONO # 1.2 10^3/uL (0.0-0.8); MONO % 9.1 % (2.0-8.0); NEUTROPHILS # 10.1 10^3/uL (1.5-8.5); NEUTROPHILS % 74.2 % (36.0-66.0); PLATELET COUNT, AUTOMATED 285 10^3/uL (150-450); RED BLOOD COUNT 3.68 10^6/uL (4.30-6.10); WHITE BLOOD COUNT 13.6 10^3/uL (4.0-10.0)
[2020-12-15 12:36] LABS: ALBUMIN 3.5 GM/DL (3.2-5.2); BILIRUBIN,TOTAL 0.4 MG/DL (0.2-1.0); CALCIUM LEVEL 9.2 MG/DL (8.8-10.2); CHOLESTEROL RISK RATIO 2.348 (<5); CREATININE FOR GFR 2.57 MG/DL (0.70-1.30); GLOMERULAR FILTRATION RATE 25.2 (>35); POTASSIUM SERUM 4.3 MEQ/L (3.5-5.1); THYROID STIMULATING HORMONE 1.19 uIU/ML (0.358-3.740); TOTAL PROTEIN 6.6 GM/DL (6.4-8.2)
[2020-12-15 12:43] LABS: HEMOGLOBIN A1c 7.5 %
== END ==
LOC: M SFHCADAM 09:50
PROVIDERS: ATTEND Physician Assistant Medical
DX: E11.65 Type 2 diabetes mellitus with hyperglycemia (principal); E11.21 Type 2 diabetes mellitus with diabetic nephropathy

== ENCOUNTER 2021-02-15 19:13 | Emergency (ER) | payer MEDICARE, OTHER ==
[~2021-02-15] VITALS: Ht 182.9 cm; Wt 81.8 kg
[~2021-02-15 19:13] MED LIST changes: +ASPI-569 PO; -ASPI81TAEC PO; -FOLI400T PO; +FOLI400T13 PO
[2021-02-15] MEDS ORDERED: B-1100TA2 PO (19:32)
[2021-02-15] MEDS ORDERED: dexameTHASONE 20MG/5ML VIAL (J1100 PER 1MG) IV ONE (20:25)
[2021-02-15] MEDS: IPRATROPIUM 0.5MG/ALBUTEROL 2.5MG INH SOL UD 3ML (DUONEB) NEB PRN ×3 (20:41→21:35)
[2021-02-15 21:03] LABS: BASO # 0.1 10^3/uL (0.0-0.2); BASO % 1.1 % (0.0-1.0); EOS # 0.9 10^3/uL (0.0-0.5); EOS % 8.7 % (0.0-3.0); HEMATOCRIT 33.6 % (42.0-52.0); HEMOGLOBIN 11.2 g/dl (13.5-17.5); LYMPH # 2.8 10^3/uL (1.5-5.0); LYMPH % 26.8 % (24.0-44.0); MEAN CORPUSCULAR HEMOGLOBIN 30.4 pg (27.0-33.0); MEAN CORPUSCULAR HGB CONC 33.3 g/dl (32.0-36.5); MEAN CORPUSCULAR VOLUME 91.3 fl (80.0-96.0); MONO # 1.2 10^3/uL (0.0-0.8); MONO % 11.9 % (2.0-8.0); NEUTROPHILS # 5.2 10^3/uL (1.5-8.5); NEUTROPHILS % 50.5 % (36.0-66.0); PLATELET COUNT, AUTOMATED 259 10^3/uL (150-450); RED BLOOD COUNT 3.68 10^6/uL (4.30-6.10); WHITE BLOOD COUNT 10.3 10^3/uL (4.0-10.0)
[2021-02-15 21:28] LABS: ALBUMIN 3.8 GM/DL (3.2-5.2); ALT/SGPT 16 U/L (12-78); BILIRUBIN,DIRECT 0.1 MG/DL (0.0-0.2); BILIRUBIN,TOTAL 0.3 MG/DL (0.2-1.0); BLOOD UREA NITROGEN 74 MG/DL (7-18); CALCIUM LEVEL 9.7 MG/DL (8.8-10.2); CARBON DIOXIDE LEVEL 21 MEQ/L (21-32); CHLORIDE LEVEL 104 MEQ/L (98-107); CK-MB VALUE MASS 1.8 NG/ML (<3.6); CPK CREATINE PHOSPHOKINASE 44 U/L (39-308); CREATININE FOR GFR 2.78 MG/DL (0.70-1.30); GLUCOSE, FASTING 183 MG/DL (70-100); MB/CK RELATIVE INDEX 4.09 (< OR =4); NT-PRO BNP 467 PG/ML (<450); POTASSIUM SERUM 4.6 MEQ/L (3.5-5.1); SODIUM LEVEL 135 MEQ/L (136-145); TROPONIN I < 0.02 NG/ML (< 0.10)
[2021-02-15 21:32] LABS: RSV AMPLIFICATION NEGATIVE (NEGATIVE)
--- NOTE | 2021-02-15 22:44 | ECGEPIP ---
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
--- NOTE | 2021-02-15 23:28 | REPVR ---
PROCEDURE INFORMATION: Exam: XR Chest Exam date and time: 02/15/21 (9:54pm) Age: 89 years old Clinical indication: Cough and dyspnea TECHNIQUE: Imaging protocol: Portable CXR Views: 1 view COMPARISON: Chest films of 10/19/19 FINDINGS: Lungs: Unremarkable. No consolidation. Pleural spaces: Unremarkable. No pleural effusions. No pneumothorax. Heart/Mediastinum: Heart size may be top normal (stable). Aortic knob calcifications. Bones/joints: Unremarkable. IMPRESSION: No acute findings. Similar appearance in 2018. Electronically signed by: Laurel Victor On 02/15/2021 23:28:35 PM
[2021-02-16] MEDS ORDERED: TESS100C PO (00:58)
[2021-02-16] MEDS ORDERED: PRED20TA PO (00:58)
[2021-02-16] MEDS ORDERED: BENZONATATE 100 MG CAP PO ONE (01:00)
[2021-02-16 01:15] VITALS: BP 137/60
== END 2021-02-16 01:33 | disposition home or self-care (01) ==
LOC: M ED 19:13
DX: J20.9 Acute bronchitis, unspecified (principal); I44.0 Atrioventricular block, first degree; I12.9 Hypertensive chronic kidney disease with stage 1 through stage 4 chronic kidney disease, or unspecified chronic kidney disease; I50.9 Heart failure, unspecified; N18.4 Chronic kidney disease, stage 4 (severe); E11.9 Type 2 diabetes mellitus without complications; K21.9 Gastro-esophageal reflux disease without esophagitis; Z79.82 Long term (current) use of aspirin; Z79.899 Other long term (current) drug therapy; Z87.891 Personal history of nicotine dependence
CPT/HCPCS: 36415; 71045; 80048; 80076; 82550; 82553; 83605; 83880; 84484; 85025; 87631; 93005; 93041; 94640; 94760; 96374; 99285; J1100

== ENCOUNTER 2021-03-13 17:21 | Inpatient (IN) | payer MEDICARE, OTHER ==
[~2021-03-13] VITALS: Ht 182.9 cm; Wt 72.2 kg
[~2021-03-13 17:21] MED LIST changes: -CEPH500C PO; -TOUJ1.2I SC
[2021-03-13] MEDS ORDERED: TOUJ1.2I SC (18:41)
[2021-03-13 18:50] LABS: BASO # 0.1 10^3/uL (0.0-0.2); BASO % 0.7 % (0.0-1.0); EOS # 0.4 10^3/uL (0.0-0.5); EOS % 4.6 % (0.0-3.0); HEMATOCRIT 35.8 % (42.0-52.0); LYMPH # 2.1 10^3/uL (1.5-5.0); LYMPH % 25.2 % (24.0-44.0); MEAN CORPUSCULAR HEMOGLOBIN 30.6 pg (27.0-33.0); MEAN CORPUSCULAR HGB CONC 33.5 g/dl (32.0-36.5); MEAN CORPUSCULAR VOLUME 91.3 fl (80.0-96.0); MONO # 1.1 10^3/uL (0.0-0.8); MONO % 13.1 % (2.0-8.0); NEUTROPHILS # 4.6 10^3/uL (1.5-8.5); NEUTROPHILS % 55.4 % (36.0-66.0); PLATELET COUNT, AUTOMATED 249 10^3/uL (150-450); RED BLOOD COUNT 3.92 10^6/uL (4.30-6.10); WHITE BLOOD COUNT 8.3 10^3/uL (4.0-10.0)
[2021-03-13] MEDS ORDERED: NS 500 ML IV ONE (19:00)
--- NOTE | 2021-03-13 19:00 | REPVR ---
PROCEDURE INFORMATION: Exam: CT Head Without Contrast Exam date and time: 03/13/2021 6:19 PM Age: 89 years old Clinical indication: Other: Weakness TECHNIQUE: Imaging protocol: Computed tomography of the head without contrast. Radiation optimization: All CT scans at this facility use at least one of these dose optimization techniques: automated exposure control; mA and/or kV adjustment per patient size (includes targeted exams where dose is matched to clinical indication); or iterative reconstruction. COMPARISON: CT Head without contrast 01/05/2017 6:58 PM FINDINGS: Brain: There is mild to moderate age related parenchymal volume loss. White matter changes are demonstrated in the subcortical, centrum semiovale and periventricular white matter consistent with chronic age related small vessel ischemic changes. There is mild diffuse cerebellar atrophy. Cerebral ventricles: The degree of ventricular dilatation is normal for age and/or degree of atrophy present. Bones/joints: Unremarkable. No acute fracture. Paranasal sinuses: Visualized sinuses are unremarkable. No fluid levels. Mastoid air cells: Visualized mastoid air cells are well aerated. Soft tissues: Unremarkable. IMPRESSION: 1. There is mild to moderate age related parenchymal volume loss. White matter changes are demonstrated in the subcortical, centrum semiovale and periventricular white matter consistent with chronic age related small vessel ischemic changes. 2. The degree of ventricular dilatation is normal for age and/or degree of atrophy present. 3. There is mild diffuse cerebellar atrophy. 4. No acute intracranial findings. Electronically signed by: Jacob Leone On 03/13/2021 18:59:30 PM
--- NOTE | 2021-03-13 19:05 | REPVR ---
PROCEDURE INFORMATION: Exam: XR Chest Exam date and time: 03/13/2021 6:30 PM Age: 89 years old Clinical indication: Other: Weakness TECHNIQUE: Imaging protocol: XR of the chest. Views: 1 view. COMPARISON: CT Chest without contrast 03/13/2021 10:00 AM FINDINGS: Lungs: Unremarkable. No consolidation. Pleural spaces: Unremarkable. No pleural effusion. No pneumothorax. Heart/Mediastinum: Unremarkable. No cardiomegaly. Bones/joints: Unremarkable. IMPRESSION: No acute findings. Electronically signed by: Jacob Leone On 03/13/2021 19:05:28 PM
--- NOTE | 2021-03-13 19:05 | REP ---
INDICATION: fall. COMPARISON: None. TECHNIQUE: Single AP view pelvis. FINDINGS: There is no acute fracture or dislocation. There is moderate joint space narrowing, subchondral sclerosis and spurring at both hip joints. Multiple metallic clips overlie the inferior pelvis. There are degenerative changes of the lower lumbar spine. There is narrowing and sclerosis at the sacroiliac joints. IMPRESSION: No fracture or dislocation. Degenerative changes. <Electronically signed by Jeison Clay > 03/13/21 [id number]
[2021-03-13 19:33] LABS: ALBUMIN 3.7 GM/DL (3.2-5.2); BILIRUBIN,TOTAL 0.5 MG/DL (0.2-1.0); CALCIUM LEVEL 9.7 MG/DL (8.8-10.2); CK-MB VALUE MASS 1.6 NG/ML (<3.6); CREATININE FOR GFR 2.83 MG/DL (0.70-1.30); FREE T4 0.92 NG/DL (0.76-1.46); GLOMERULAR FILTRATION RATE 22.5 (>35); MB/CK RELATIVE INDEX 4.44 (< OR =4); POTASSIUM SERUM 4.2 MEQ/L (3.5-5.1); THYROID STIMULATING HORMONE 1.2 uIU/ML (0.358-3.740); TOTAL PROTEIN 6.7 GM/DL (6.4-8.2); TROPONIN I 0.02 NG/ML (< 0.10)
[2021-03-13] MEDS ORDERED: cefTRIAXone SOD 1 GM in D5W MINI-BAG PLUS 50 ML IV ONE (19:50)
[2021-03-13] MEDS ORDERED: MAALOX 30 ML SUSP *UDC PO PRN (20:05)
[2021-03-13] MEDS ORDERED: ACETAMINOPHEN TAB 650MG DOSE (2X325MG) PO PRN (20:05)
[2021-03-13] MEDS ORDERED: MOM 30ML SUSPENSION UDC PO PRN (20:05)
--- NOTE | 2021-03-13 20:06 | HPEPDOC ---
[facility] Medical History & Physical Date of Admission March 13, 2021 Date of Service: March 13, 2021 Primary Care Physician: HONORIO TARIQ PA-C Attending Physician: ARIADNA FLORES MD History and Physical TIME OF SERVICE: 807pm CHIEF COMPLAINT: weak legs HISTORY OF PRESENT ILLNESS: This 89 yr old M was brought to the ER by his daughter who found him lying on the ground; while walking on the porch with his walker he had a fall and couldnt get up. This is his 5th fall; unfortunately he fell onto his face. His about 2 yrs ago and he has lost 57 lbs over the last year. He denied having abdominal pain, back pain or dysuria. REVIEW OF SYSTEMS: 12-point review of systems negative except as listed in HPI PAST MEDICAL/ SURGICAL HISTORY: Polycystic kidney disease / CKD4, IDDM2, chronic HFpEF, Essential HTN, GERD, Anemia of chronic disease, B12 def, remote hx of pancreatitis, PVD, SAMMY (declined CPAP), Gout, R ankle ORIF, unsteady gait (uses walker), prostatectomy (path not in [employer]), resection of multiple tubular adenomas SOCIAL HISTORY: , college graduate, former smoker, lives alone FAMILY HISTORY: Father DM / Mother DM, PVD / Daughter Crohns ALLERGIES: Please see below. HOME MEDICATIONS: Please see below. PHYSICAL EXAMINATION: Vital Signs Date Time Temp Pulse Resp B/P (MAP) Pulse Ox O2 Delivery O2 Flow Rate FiO2 03/13/21 17:26 119/62 (81) 03/13/21 17:33 96.9 93 18 99 Room Air GENERAL APPEARANCE: slim build / NAD HEENT: EOMI / no scleral icterus CARDIOVASCULAR: RRR/NMRG LUNGS: CTAB on RA ABDOMEN: contour flat MUSCULOSKELETAL: ANA x 4 INTEGUMENT: not flushed, diaphoretic, pale or jaundice NEUROLOGICAL: CN 2-12 grossly intact /speech not dysarthric PSYCHIATRIC: A&O x 3 /able to understand and follow all commands LABORATORY DATA: Urine Color YELLOW, Urine Appearance CLEAR, Urine pH 6.0, Urine Specific [place] 1.009, Urine Protein NEGATIVE, Urine Glucose (UA) NEGATIVE, Urine Ketones NEGATIVE, Urine Blood NEGATIVE, Urine Nitrite NEGATIVE, Urine Bilirubin NEGATIVE, Urine Urobilinogen 0.2, Urine Leukocyte Esterase 2+H, Urine WBC (Auto) 11H, Urine RBC (Auto) 3, Urine Hyaline Casts (Auto) 0, Urine Bacteria (Auto) 1+H, Urine Squamous Epithelial Cells 0, Urine Sperm (Auto) 03/13/21 18:39: Immature Granulocyte % (Auto) 1.0, Neutrophils (%) (Auto) 55.4, Lymphocytes (%) (Auto) 25.2, Monocytes (%) (Auto) 13.1H, Eosinophils (%) (Auto) 4.6H, Basophils (%) (Auto) 0.7, Neutrophils # (Auto) 4.6, Lymphocytes # (Auto) 2.1, Monocytes # (Auto) 1.1H, Eosinophils # (Auto) 0.4, Basophils # (Auto) 0.1, Nucleated Red Blood Cells % (auto) 0.0, Anion Gap 9, Glomerular Filtration Rate 22.5L, Calcium Level 9.7, Total Bilirubin 0.5, Aspartate Amino Transf (AST/SGOT) 11, Alanine Aminotransferase (ALT/SGPT) 16, Alkaline Phosphatase 67, Total Creatine Kinase 36L, Creatine Kinase MB 1.6, Creatine Kinase MB Relative Index 4.44H, Troponin I 0.02, Total Protein 6.7, Albumin 3.7, Albumin/Globulin Ratio 1.2, Thyroid Stim ulating Hormone (TSH) 1.200, Free Thyroxine 0.92 IMAGING: Chest xray IMPRESSION: No acute findings. CTA head IMPRESSION: 1. There is mild to moderate age related parenchymal volume loss. White matter changes are demonstrated in the subcortical, centrum semiovale and periventricular white matter consistent with chronic age related small vessel ischemic changes. 2. The degree of ventricular dilatation is normal for age and/or degree of atrophy present. 3. There is mild diffuse cerebellar atrophy. 4. No acute intracranial findings. Xray pelvis IMPRESSION: No fracture or dislocation. Degenerative changes. MICROBIOLOGY: + Rhinovirus ASSESSMENT: is an 89 yr old w CKD4, IDDM2, HFpEF, HTN, Anemia of chronic disease, PVD, Gout & unsteady gait who is admitted for evaluation of weakness /frequent falls & Rhinovirus infection. PLAN: 1 Hypotension He has a hx of HTN Suspect he has labile BP bc he is on midodrine Plan: admit to PCU bc of low BP/ orthostats /IVF 2 Weakness / Frequent falls At his baseline he has an unsteady gait and uses a walker May be exacerbated by Rhinovirus infection Plan: fall precautions / f/u orthostats / PT/OT / check Phosphorus level (if low can cause weakness) 3 Rhinovirus infection Plan: supportive care 4 Weight loss possibly 2/2 depression Plan: start mirtazapine / liberalize diet (hold off low carbs and low salt for now) 5 Sarcopenia Plan: check pre-albumin /day time team may consider supervisor area consult for recommendations on high protein foods 6 Asymptomatic UTI Plan: will hold off additional anti-biotics 7 IDDM2 Plan: f/u accuchecks / hypoglycemia protocol / sliding scale insulin / hold oral anti-glycemics & insulin / f/u A1C (target A1C is about 8.5% bc he is frail, if it is lower than this we may need to dc his insulin bc more aggressive glucose control in elderly that are frail is associated w a shorter life expec tancy) 8 Chronic HFpEF Plan: f/u Is /Os, daily weights / hold Lasix and furosemide pending improvement in his BP 9. Anemia of chronic disease At baseline 10 PVD Plan: Aspirin / hold Pravastatin (statins are associated muscle aches and falls especially in the elderly) 11 Gout Plan: Allopurinol & Colchicine 12 CKD4 At baseline DVT px w lovenox Dispo: home after at least 2 midnights stay Home Medications Scheduled Allopurinol (Allopurinol) 100 Mg Tablet, 100 MG PO DAILY Aspirin (Aspirin EC) 81 Mg Tab, 81 MG PO DAILY Cholecalciferol (Vitamin D3) (Vitamin D3) 1,000 Unit Tablet, 1,000 UNITS PO DAILY Colchicine (Colchicine) 0.6 Mg Tablet, 0.3 MG PO Q2D TAKES ON EVEN DAYS Cyanocobalamin (Vitamin B-12) (Vitamin B-12) 1,000 Mcg Tab, 1,000 MCG PO DAILY Esomeprazole Magnesium (Nexium) 40 Mg Cap, 40 MG PO DAILY Folic Acid (Folic Acid) 0.4 Mg Tablet, 400 MCG PO DAILY Furosemide (Furosemide) 40 Mg Tablet, 40 MG PO DAILY Glipizide (Glipizide) 10 Mg Tab, 10 MG PO DAILY Insulin Glargine,Hum.rec.anlog (Elia Dockery) 300 Unit/1 Ml Insuln.pen, 8 UNITS SC QHS Midodrine HCl (Midodrine HCl) 2.5 Mg Tablet, 2.5 MG PO TID Multivit-Min/FA/Lycopen/Lutein (Centrum Silver Tablet) 1 Each Tablet, 1 TAB PO DAILY Pravastatin Sodium (Pravastatin Sodium) 20 Mg Tab, 20 MG PO DAILY Sitagliptin (Januvia) 50 Mg Tab, 50 MG PO DAILY Spironolactone (Spironolactone) 25 Mg Tab, 25 MG PO DAILY Thiamine HCl (Vitamin B-1) 100 Mg Tablet, 100 MG PO DAILY Tiotropium Leigh (Spiriva Respimat) 4 Gm Mist.inhal, 1 PUFF INH DAILY Scheduled PRN Albuterol Sulfate (Ventolin Hfa) 18 Gm Hfa.aer.ad, 2 PUFF INH QID PRN for SOB/WHEEZING Allergies Coded Allergies: No Known Allergies (Unverified , 06/21/18) A-FIB/CHADSVASC A-FIB History Current/History of A-Fib/PAF?: No Current PO Anticoag Therapy: No ARIADNA FLORES MD March 13, 2021 20:06
[2021-03-13] MEDS: NS 1,000 ML IV SCH (20:16)
[2021-03-13] MEDS: ENOXAPARIN 30MG/0.3ML SYRINGE (J1650 PER 10MG) SC SCH (21:40)
[2021-03-13 22:05] VITALS: BP 140/50
[2021-03-13] MEDS ORDERED: GLUCOSE 4GM CHEW TABLET PO PRN (23:45)
[2021-03-13] MEDS ORDERED: ALBUTEROL 90 MCG/ACT 8GM HFA INHALER INH PRN (23:45)
[2021-03-13] MEDS ORDERED: GLUCAGON INJ 1MG VIAL SC PRN (23:45)
[2021-03-13] MEDS ORDERED: DEXTROSE 50% 50 ML SYRINGE IV PRN (23:45)
[2021-03-13] MEDS ORDERED: PILL CUTTER 1 EACH XX PRN (23:55)
[2021-03-14] VITALS: BP_SYST 78; BP_SYST 85; BP_SYST 90; BP_DIAS 41; BP_DIAS 42; BP_DIAS 45; O2SAT 100
[2021-03-14] MEDS ORDERED: HumaLOG INSULIN (NovoLOG) PER UNIT SC SCH
[2021-03-14] MEDS: MIRTAZAPINE 7.5MG PER 1/2 TABLET PO SCH ×2 (01:00→20:16)
[2021-03-14] MEDS: MIDODRINE 2.5 MG TAB PO SCH ×4 (01:01→17:30)
[2021-03-14 04:00] VITALS: BP 118/57; O2SAT 98
[2021-03-14 05:04] LABS: HEMATOCRIT 33.2 % (42.0-52.0); MEAN CORPUSCULAR HEMOGLOBIN 30.6 pg (27.0-33.0); MEAN CORPUSCULAR HGB CONC 33.1 g/dl (32.0-36.5); MEAN CORPUSCULAR VOLUME 92.2 fl (80.0-96.0); PLATELET COUNT, AUTOMATED 226 10^3/uL (150-450); WHITE BLOOD COUNT 7.8 10^3/uL (4.0-10.0)
[2021-03-14 05:19] LABS: CALCIUM LEVEL 8.6 MG/DL (8.8-10.2); CREATININE FOR GFR 2.45 MG/DL (0.70-1.30); GLOMERULAR FILTRATION RATE 26.6 (>35); PHOSPHORUS LEVEL 3.7 MG/DL (2.5-4.9); POTASSIUM SERUM 4.1 MEQ/L (3.5-5.1)
[2021-03-14 05:21] LABS: HEMOGLOBIN A1c 8.7 %
[2021-03-14] MEDS: HumaLOG INSULIN (NovoLOG) PER UNIT SC SCH ×3 (06:00→18:00)
[2021-03-14] MEDS: TIOTROPIUM INHALER/CAPSULE (SPIRIVA) INH SCH (07:27)
[2021-03-14 07:33] VITALS: BP 119/59
--- NOTE | 2021-03-14 07:57 | ECGEPIP ---
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
[2021-03-14] MEDS: CYANOCOBALAMIN 500 MCG TAB PO SCH (08:59)
[2021-03-14] MEDS: ASPIRIN 81MG ENTERIC TABLET PO SCH (08:59)
[2021-03-14] MEDS: VITAMIN D 1,000 INTERNATIONAL UNITS TABLET PO SCH (08:59)
[2021-03-14] MEDS: PANTOPRAZOLE 40MG TAB (PROTONIX) PO SCH (08:59)
[2021-03-14] MEDS: allopurinoL 100 MG TAB PO SCH (08:59)
[2021-03-14] MEDS: THIAMINE 100 MG TAB PO SCH (08:59)
[2021-03-14] MEDS: NS 1,000 ML IV SCH (09:00)
[2021-03-14] MEDS ORDERED: MULTIVITAMINS/MINERALS THERAP 1 TAB PO SCH (09:00)
[2021-03-14] MEDS ORDERED: FUROSEMIDE 40 MG TAB PO SCH (09:00)
[2021-03-14] MEDS: ceFAZolin SOD 1 GM in D5W MINI-BAG PLUS 50 ML IV SCH ×2 (09:00→20:16)
[2021-03-14] MEDS ORDERED: PRAVASTATIN 20 MG TAB PO SCH (09:00)
[2021-03-14] MEDS ORDERED: COLCHICINE 0.6 MG TABLET PO SCH (09:00)
[2021-03-14] MEDS ORDERED: SPIRONOLACTONE 25 MG TAB PO SCH (09:00)
--- NOTE | 2021-03-14 09:32 | IPN ---
PROGRESS NOTE DATE: 03/14/2021 SUBJECTIVE: Jhon was admitted with leg weakness. He looks to have a urinary infection. No fever, chills or flank pain. He says his legs just fell "they won't hold me up." OBJECTIVE: VITAL SIGNS: Afebrile. Vital signs are stable. Last night he was quite orthostatic. Blood pressure was 90/45 supine, 78/41 standing, blood pressure this morning was 119/59. GENERAL APPEARANCE: He is alert and conversant, in no distress. LUNGS: Clear. HEART: Regular rhythm. ABDOMEN: Soft, nontender. No CVA tenderness, no suprapubic tenderness. MUSCULOSKELETAL: Gross motor strength in both legs. LABORATORY DATA: Electrolytes were unremarkable. Potassium 4.1, creatinine 2.45 which is baseline. Hemoglobin A1c is 8.7 which is about baseline for him. White count is 7.8, hemoglobin is 11, platelets 226,000. Respiratory panel was positive for rhinovirus. Urinalysis looks like essentially a urinary tract infection. Urine culture is pending (he did have a E. coli UTI in 05/18). IMPRESSION: 1. Suspected urinary tract infection. He received a dose of Rocephin yesterday, will start Ancef 1 gram IV q. 12 hours today, dose adjusted for renal function. Urine culture pending. 2. Leg weakness, probably from urinary infection. Physical and Occupational Therapy has been ordered. 3. Orthostasis, he is on Midodrine which he will continue. 4. COPD, continue his current dose of Spiriva. 5. Diabetes. Adequate control for an 89-year-old. He is currently on sliding scale insulin coverage. Anticipate discharge early in the week, probably Monday.
[2021-03-14 12:00] VITALS: BP 110/58
[2021-03-14 16:00] VITALS: BP 128/59
[2021-03-14 20:00] VITALS: BP 111/53
[2021-03-14] MEDS: ENOXAPARIN 30MG/0.3ML SYRINGE (J1650 PER 10MG) SC SCH (20:16)
[2021-03-15] VITALS: BP 107/56
[2021-03-15] MEDS: NS 1,000 ML IV SCH (00:03)
[2021-03-15 04:00] VITALS: BP 108/55
[2021-03-15 05:43] LABS: HEMOGLOBIN 9.6 g/dl (13.5-17.5); MEAN CORPUSCULAR HEMOGLOBIN 29.8 pg (27.0-33.0); MEAN CORPUSCULAR VOLUME 93.2 fl (80.0-96.0); PLATELET COUNT, AUTOMATED 208 10^3/uL (150-450); RED BLOOD COUNT 3.22 10^6/uL (4.30-6.10); WHITE BLOOD COUNT 6.5 10^3/uL (4.0-10.0)
[2021-03-15] MEDS: HumaLOG INSULIN (NovoLOG) PER UNIT SC SCH ×3 (06:00→11:57)
[2021-03-15 06:02] LABS: CALCIUM LEVEL 8.2 MG/DL (8.8-10.2); CREATININE FOR GFR 2.11 MG/DL (0.70-1.30); GLOMERULAR FILTRATION RATE 31.6 (>35); POTASSIUM SERUM 4.3 MEQ/L (3.5-5.1)
[2021-03-15 08:00] VITALS: BP 97/56
[2021-03-15] MEDS: TIOTROPIUM INHALER/CAPSULE (SPIRIVA) INH SCH (08:10)
[2021-03-15] MEDS: VITAMIN D 1,000 INTERNATIONAL UNITS TABLET PO SCH (08:58)
[2021-03-15] MEDS: THIAMINE 100 MG TAB PO SCH (08:58)
[2021-03-15] MEDS: ceFAZolin SOD 1 GM in D5W MINI-BAG PLUS 50 ML IV SCH (08:58)
[2021-03-15] MEDS: ASPIRIN 81MG ENTERIC TABLET PO SCH (08:58)
[2021-03-15] MEDS: allopurinoL 100 MG TAB PO SCH (08:59)
[2021-03-15] MEDS: PANTOPRAZOLE 40MG TAB (PROTONIX) PO SCH (08:59)
[2021-03-15] MEDS: MIDODRINE 2.5 MG TAB PO SCH ×2 (08:59→12:04)
[2021-03-15] MEDS: CYANOCOBALAMIN 500 MCG TAB PO SCH (08:59)
[2021-03-15] MEDS ORDERED: CEPH500C PO (10:04)
--- NOTE | 2021-03-15 11:14 | DSES ---
DISCHARGE SUMMARY DATE OF ADMISSION: 03/13/2021 DATE OF DISCHARGE: / / PRIMARY CARE PROVIDER: TAPAN Ruiz, [facility]. CHIEF COMPLAINT: Leg weakness secondary to Proteus urinary tract infection. SECONDARY DIAGNOSES: 1. Respiratory infection with human Rhinovirus/Enterovirus. 2. Orthostasis. 3. History of COPD. 4. Diabetes. 5. Chronic kidney disease stage 4. 6. Acute kidney injury probably from urinary tract infection. HISTORY: Jhon Diana was admitted with leg weakness. Details in the history and physical from admission. HOSPITAL COURSE: Admitted to a Medical bed. He was found to have urinary tract infection. He grew out Proteus sensitive to his prescribed antibiotic. On the day of discharge, he feels strong enough to go home. He had acute kidney injury on admission resolved with hydration. Renal function was back to baseline. GFR was around 30. PHYSICAL EXAMINATION: GENERAL: On the day of discharge, he is resting comfortably with no distress. He is alert, conversant. VITAL SIGNS: His vitals were stable, 108/55, pulse rate 80, respiratory rate 18, 98% O2 saturation. LUNGS: Clear. HEART: Regular rhythm. ABDOMEN: Soft, nontender. EXTREMITIES: Normal strength in the legs. LABORATORY DATA: Urine culture grew out pansensitive Proteus. White count today 6.5, hemoglobin 9.6, platelets 208. Sodium 142, potassium 4.3, BUN 42, creatinine 2.1, glucose 121. Hemoglobin A1c was 8.7% which is acceptable for an 89 year old. TSH and free T4 were normal. Respiratory panel: Isolated human rhinovirus. DISPOSITION: He was discharged home in improved and stable condition. He will follow up with TAPAN Ruiz, in the [place] office in a week. Activity as tolerated. Consistent carbohydrate diet recommended. DISCHARGE MEDICATIONS: Keflex 500 mg b.i.d. for seven days. Otherwise, he will continue: 1. Albuterol two puffs q.i.d. p.r.n. 2. Allopurinol 100 mg daily. 3. Aspirin 81 mg daily. 4. Vitamin D 1,000 units daily. 5. Colchicine p.r.n. 6. Vitamin B12 1,000 mcg daily. 7. Nexium 40 mg daily. 8. Folic acid 0.4 mg daily. 9. Furosemide 20 mg daily. 10. Glipizide 10 mg daily. 11. Toujeo 8 units at bedtime. 12. Midodrine 2.5 mg t.i.d. 13. Multivitamin. 14. Pravastatin 20 mg daily. 15. Januvia 50 mg daily. 16. Spironolactone 25 mg daily. 17. Vitamin B1 100 mg daily. 18. Spiriva one inhalation daily. PENDING LABORATORY DATA: At the time of this dictation, there are no pending labs.
[2021-03-15 12:00] VITALS: BP 103/59
== END 2021-03-15 15:42 | disposition home health service (06) | DRG 690 ==
LOC: M ED 17:21 → EDBD 17:21 → M ED INP 20:02 → ENRESERV 21:42 → M PCU 22:07
PROVIDERS: ADMIT Internal Medicine; ATTEND Family Medicine
DX: N39.0 Urinary tract infection, site not specified (principal); N18.4 Chronic kidney disease, stage 4 (severe); N17.9 Acute kidney failure, unspecified; Q61.3 Polycystic kidney, unspecified; I13.0 Hypertensive heart and chronic kidney disease with heart failure and stage 1 through stage 4 chronic kidney disease, or unspecified chronic kidney disease; B34.8 Other viral infections of unspecified site; J44.9 Chronic obstructive pulmonary disease, unspecified; E11.9 Type 2 diabetes mellitus without complications; Z79.899 Other long term (current) drug therapy; Z79.82 Long term (current) use of aspirin; D63.1 Anemia in chronic kidney disease; E53.8 Deficiency of other specified B group vitamins; G47.33 Obstructive sleep apnea (adult) (pediatric); M10.9 Gout, unspecified; I50.9 Heart failure, unspecified; I95.9 Hypotension, unspecified; R29.6 Repeated falls; F32.9 Major depressive disorder, single episode, unspecified

== ENCOUNTER → 2021-03-13 | Outpatient (CLI) | payer MEDICARE, OTHER ==
[~2021-03-13] MED LIST changes: +B-1100TA2 PO; +CEPH500C PO; +PRED20TA PO; +TESS100C PO; +TOUJ1.2I SC
--- NOTE | 2021-03-13 11:24 | REP ---
INDICATION: CHRONIC COUGH, SOB, unexplained WEIGHT LOSS. COMPARISON: Radiograph 02/15/2021. TECHNIQUE: CT chest performed without the use of intravenous contrast. Sagittal and coronal reconstruction images are performed. FINDINGS: Lungs: There is no acute infiltrate. There is mild scattered interstitial fibrosis particularly in the lower lobes inferiorly. Multiple tiny calcified granulomas are seen bilaterally. There is mild bronchiectasis. There is mild diffuse bronchial wall thickening suggesting bronchitis. Mediastinum: No gross adenopathy. There are few calcified mediastinal lymph nodes. Neelima: No gross adenopathy. There are few calcified left hilar lymph nodes. Axilla: No gross adenopathy. Pleura: No effusion. Heart: Not enlarged. Thoracic aorta: No aneurysm. Upper abdominal structures: There are calcified splenic granulomas present. There is a large duodenal diverticulum. There appears to be a gallstone in the gallbladder. Pancreatic duct appears somewhat dilated unchanged since the prior study of 03/25/2018. Tiny pancreatic calcifications are seen diffusely suggesting chronic pancreatitis. There are bilateral renal cysts. Visualized osseous structures: There are diffuse degenerative changes of the spine without compression deformity. There is symmetrical bilateral gynecomastia. IMPRESSION: Evidence of prior granulomatous disease as discussed in detail above. No infiltrate. Mild interstitial fibrosis in both lungs. Mild diffuse bronchial wall thickening suggesting bronchitis. Gallstone is seen in the gallbladder. Chronic pancreatic duct dilatation appears unchanged since 03/25/2018, with pancreatic calcifications compatible with chronic pancreatitis. <Electronically signed by Jeison Clay > 03/13/21 [id number]
== END ==
LOC: M RAD 09:42
PROVIDERS: ATTEND Physician Assistant
DX: J84.10 Pulmonary fibrosis, unspecified (principal); K86.1 Other chronic pancreatitis; K80.20 Calculus of gallbladder without cholecystitis without obstruction

== ENCOUNTER → 2021-03-17 | Outpatient (REF) | payer MEDICARE, OTHER ==
[~2021-03-17] MED LIST changes: +CEPH500C PO; +TOUJ1.2I SC
[2021-03-17 13:27] LABS: BASO # 0.1 10^3/uL (0.0-0.2); BASO % 0.7 % (0.0-1.0); EOS # 0.3 10^3/uL (0.0-0.5); EOS % 3.8 % (0.0-3.0); HEMATOCRIT 31.6 % (42.0-52.0); HEMOGLOBIN 10.2 g/dl (13.5-17.5); LYMPH # 1.6 10^3/uL (1.5-5.0); LYMPH % 19.5 % (24.0-44.0); MEAN CORPUSCULAR HEMOGLOBIN 30.4 pg (27.0-33.0); MEAN CORPUSCULAR HGB CONC 32.3 g/dl (32.0-36.5); MONO # 0.9 10^3/uL (0.0-0.8); MONO % 10.7 % (2.0-8.0); NEUTROPHILS # 5.3 10^3/uL (1.5-8.5); NEUTROPHILS % 64.2 % (36.0-66.0); PLATELET COUNT, AUTOMATED 247 10^3/uL (150-450); RED BLOOD COUNT 3.36 10^6/uL (4.30-6.10); WHITE BLOOD COUNT 8.3 10^3/uL (4.0-10.0)
== END ==
LOC: M LAB REF 12:47
PROVIDERS: ATTEND Physician Assistant Medical
DX: D64.89 Other specified anemias (principal)

== ENCOUNTER 2021-04-13 15:35 | Emergency (ER) | payer MEDICARE, OTHER ==
[~2021-04-13] VITALS: Ht 182.9 cm; Wt 80.0 kg
[2021-04-13 18:19] LABS: BASO # 0.1 10^3/uL (0.0-0.2); BASO % 1.2 % (0.0-1.0); EOS # 0.9 10^3/uL (0.0-0.5); EOS % 8.5 % (0.0-3.0); HEMOGLOBIN 10.2 g/dl (13.5-17.5); LYMPH % 19.1 % (24.0-44.0); MEAN CORPUSCULAR HEMOGLOBIN 29.7 pg (27.0-33.0); MEAN CORPUSCULAR HGB CONC 31.9 g/dl (32.0-36.5); MEAN CORPUSCULAR VOLUME 93.3 fl (80.0-96.0); MONO % 9.6 % (2.0-8.0); NEUTROPHILS # 6.3 10^3/uL (1.5-8.5); NEUTROPHILS % 59.3 % (36.0-66.0); PLATELET COUNT, AUTOMATED 355 10^3/uL (150-450); RED BLOOD COUNT 3.43 10^6/uL (4.30-6.10); WHITE BLOOD COUNT 10.6 10^3/uL (4.0-10.0)
[2021-04-13 18:56] LABS: ERYTHROCYTE SEDIMENTATION RATE 58 mm/hr (0-20)
--- NOTE | 2021-04-13 19:54 | REP ---
INDICATION: erythema, swelling increased, cellulitis recent COMPARISON: 01/10/2017. TECHNIQUE: Real time compression and duplex Doppler interrogation of the left lower extremity deep venous system is performed, including the right common femoral vein.Compression of the left peroneal and posterior tibial veins is performed. FINDINGS: The left common femoral, superficial femoral and popliteal veins are fully compressible with transducer pressure and demonstrate normal spontaneous and phasic flow, without evidence of deep venous thrombosis.The right common femoral vein demonstrates no thrombus.The visualized left peroneal and posterior tibial veins demonstrate no thrombus. IMPRESSION: No evidence of deep venous thrombosis of the left lower extremity femoral popliteal venous system.No thrombus in the visualized left peroneal and posterior tibial veins. <Electronically signed by Jeison Clay > 04/13/21 1950
[2021-04-13] MEDS ORDERED: CEPHALEXIN 500 MG CAP PO ONE (20:15)
[2021-04-13] MEDS ORDERED: CEPH500C PO (20:15)
[2021-04-13 20:32] VITALS: BP 140/67
== END 2021-04-13 20:36 | disposition home or self-care (01) ==
LOC: M ED 15:35
DX: L03.116 Cellulitis of left lower limb (principal); E11.9 Type 2 diabetes mellitus without complications; I12.9 Hypertensive chronic kidney disease with stage 1 through stage 4 chronic kidney disease, or unspecified chronic kidney disease; N18.4 Chronic kidney disease, stage 4 (severe); E78.5 Hyperlipidemia, unspecified; Z79.899 Other long term (current) drug therapy; Z79.82 Long term (current) use of aspirin; Z79.4 Long term (current) use of insulin